=== PATIENT | male | born 1940 | race Caucasian/White ===

== ENCOUNTER → 2016-03-09 | Outpatient (CLI) | payer MEDICARE, BC ==
[2016-03-09 10:53] LABS: INR 2.05
== END ==
LOC: M LAB 10:03
PROVIDERS: ATTEND Physician Assistant
DX: Z86.711 Personal history of pulmonary embolism (principal)

== ENCOUNTER → 2016-03-22 | Outpatient (CLI) | payer MEDICARE, BC ==
[2016-03-22 14:02] LABS: ALBUMIN 3.5 GM/DL (3.2-5.2); CALCIUM LEVEL 9.3 MG/DL (8.8-10.2); CREATININE FOR GFR 1.97 MG/DL (0.70-1.30); GLOMERULAR FILTRATION RATE 35.5 (>42); PHOSPHORUS LEVEL 2.1 MG/DL (2.5-4.9); POTASSIUM SERUM 4.3 MEQ/L (3.5-5.1)
--- NOTE | 2016-03-22 14:07 | REP ---
Chest two views HISTORY: Shortness of breath Comparison: 06/25/2014 The lungs are clear. The cardiac silhouette is enlarged. The pulmonary vasculature is normal in appearance. Degenerative change is present in the thoracic spine. IMPRESSION: Cardiomegaly. Signed by Yaron Adkins MD 03/22/2016 02:00 P
[2016-03-22 14:10] LABS: BASO # 0.2 K/mm3 (0.0-0.2); BASO % 2.1 % (0.0-1.0); EOS # 0.3 K/mm3 (0.0-0.50); EOS % 3.2 % (0.0-3.0); LARGE UNSTAINED CELL # 0.2 K/mm3 (0.0-0.4); LARGE UNSTAINED CELL % 1.5 % (0.0-4.0); LYMPH # 1.6 K/mm3 (1.5-4.5); LYMPH % 14.2 % (24.0-44.0); MEAN CORPUSCULAR HEMOGLOBIN 33.5 pg (27.0-33.0); MEAN CORPUSCULAR HGB CONC 33.2 g/dl (32.0-36.5); MEAN CORPUSCULAR VOLUME 100.9 fl (80.0-96.0); MONO # 0.6 K/mm3 (0.0-0.8); MONO % 5.3 % (0.0-5.0); NEUTROPHILS # 7.6 K/mm3 (1.8-7.7); NEUTROPHILS % 73.7 % (36.0-66.0); PLATELET COUNT, AUTOMATED 217 k/mm3 (150-450); RED CELL DISTRIBUTION WIDTH 14.9 % (11.5-14.5); WHITE BLOOD COUNT 10.4 K/mm3 (4.0-10.0)
== END ==
LOC: M LAB 13:04
PROVIDERS: ATTEND Physician Assistant
DX: R06.02 Shortness of breath (principal)

== ENCOUNTER → 2016-04-06 | Outpatient (CLI) | payer MEDICARE, BC ==
[2016-04-06 09:18] LABS: INR 1.86
== END ==
LOC: M LAB 08:23
PROVIDERS: ATTEND Physician Assistant
DX: Z79.01 Long term (current) use of anticoagulants (principal)

== ENCOUNTER → 2016-04-20 | Outpatient (CLI) | payer MEDICARE, BC ==
[2016-04-20 08:36] LABS: INR 2.1
== END ==
LOC: M LAB 08:10
PROVIDERS: ATTEND Physician Assistant
DX: Z86.711 Personal history of pulmonary embolism (principal)

== ENCOUNTER → 2016-05-16 | Outpatient (CLI) | payer MEDICARE, BC ==
[2016-05-16 07:17] LABS: INR 2.27
== END ==
LOC: M LAB 06:43
PROVIDERS: ATTEND Physician Assistant
DX: Z86.711 Personal history of pulmonary embolism (principal)

== ENCOUNTER → 2016-06-19 | Outpatient (CLI) | payer MEDICARE, BC ==
[2016-06-19 07:43] LABS: INR 1.61
== END ==
LOC: M LAB 06:47
PROVIDERS: ATTEND Nurse Practitioner Family
DX: Z86.711 Personal history of pulmonary embolism (principal)

== ENCOUNTER → 2016-07-04 | Outpatient (CLI) | payer MEDICARE, BC ==
[2016-07-04 07:59] LABS: INR 2.88
== END ==
LOC: M LAB 07:26
PROVIDERS: ATTEND Nurse Practitioner Family
DX: Z86.711 Personal history of pulmonary embolism (principal)

== ENCOUNTER → 2016-08-03 | Outpatient (CLI) | payer MEDICARE, BC ==
[2016-08-03 08:53] LABS: MEAN CORPUSCULAR HEMOGLOBIN 35.9 pg (27.0-33.0); MEAN CORPUSCULAR HGB CONC 34.5 g/dl (32.0-36.5); MEAN CORPUSCULAR VOLUME 104.1 fl (80.0-96.0); RED CELL DISTRIBUTION WIDTH 14.7 % (11.5-14.5); WHITE BLOOD COUNT 7.5 K/mm3 (4.0-10.0)
[2016-08-03 10:09] LABS: ALBUMIN 3.3 GM/DL (3.2-5.2); ALBUMIN/GLOBULIN RATIO 0.92 (1.00-1.93); BILIRUBIN,TOTAL 0.4 MG/DL (0.2-1.0); CALCIUM LEVEL 8.5 MG/DL (8.8-10.2); CREATININE FOR GFR 1.8 MG/DL (0.70-1.30); GLOMERULAR FILTRATION RATE 39.4 (>42); POTASSIUM SERUM 4.4 MEQ/L (3.5-5.1); TOTAL PROTEIN 6.9 GM/DL (6.4-8.2)
== END ==
LOC: M LAB 07:43
PROVIDERS: ATTEND Physician Assistant
DX: I50.32 Chronic diastolic (congestive) heart failure (principal); E78.2 Mixed hyperlipidemia; Z86.711 Personal history of pulmonary embolism

== ENCOUNTER → 2016-08-03 | Outpatient (CLI) | payer MEDICARE, BC ==
[2016-08-03 09:39] LABS: INR 1.93
== END ==
LOC: M LAB 07:40
PROVIDERS: ATTEND Nurse Practitioner Family
DX: Z86.711 Personal history of pulmonary embolism (principal)

== ENCOUNTER → 2016-08-24 | Outpatient (CLI) | payer MEDICARE, BC ==
[2016-08-24 08:15] LABS: INR 1.48
== END ==
LOC: M LAB 07:00
PROVIDERS: ATTEND Physician Assistant
DX: Z86.711 Personal history of pulmonary embolism (principal)

== ENCOUNTER → 2016-09-04 | Outpatient (CLI) | payer MEDICARE, BC ==
[2016-09-04 09:00] LABS: INR 2.07
== END ==
LOC: M LAB 08:15
PROVIDERS: ATTEND Internal Medicine Cardiovascular Disease
DX: Z51.81 Encounter for therapeutic drug level monitoring (principal); Z79.01 Long term (current) use of anticoagulants; Z86.711 Personal history of pulmonary embolism

== ENCOUNTER → 2016-09-18 | Outpatient (CLI) | payer MEDICARE, BC ==
[2016-09-18 07:47] LABS: INR 2.23
== END ==
LOC: M LAB 07:09
PROVIDERS: ATTEND Physician Assistant
DX: Z51.81 Encounter for therapeutic drug level monitoring (principal); Z79.01 Long term (current) use of anticoagulants; Z86.711 Personal history of pulmonary embolism

== ENCOUNTER → 2016-10-16 | Outpatient (CLI) | payer MEDICARE, BC ==
[2016-10-16 08:38] LABS: INR 2.4
== END ==
LOC: M LAB 07:29
PROVIDERS: ATTEND Physician Assistant
DX: Z51.81 Encounter for therapeutic drug level monitoring (principal); Z79.01 Long term (current) use of anticoagulants; Z86.711 Personal history of pulmonary embolism

== ENCOUNTER → 2016-11-13 | Outpatient (CLI) | payer MEDICARE, BC ==
[2016-11-13 09:45] LABS: INR 1.8
== END ==
LOC: M LAB 08:49
PROVIDERS: ATTEND Physician Assistant
DX: Z51.81 Encounter for therapeutic drug level monitoring (principal); Z79.01 Long term (current) use of anticoagulants; Z86.711 Personal history of pulmonary embolism

== ENCOUNTER → 2016-11-27 | Outpatient (CLI) | payer MEDICARE, BC ==
[2016-11-27 09:38] LABS: INR 2.53
== END ==
LOC: M LAB 08:46
PROVIDERS: ATTEND Physician Assistant
DX: Z51.81 Encounter for therapeutic drug level monitoring (principal); Z79.01 Long term (current) use of anticoagulants; D64.9 Anemia, unspecified; E83.39 Other disorders of phosphorus metabolism; Z86.711 Personal history of pulmonary embolism

== ENCOUNTER → 2016-11-27 | Outpatient (REF) | payer MEDICARE, BC ==
[2016-11-27 20:22] LABS: FOLATE > 24.0 NG/ML; VITAMIN B12 LEVEL 1440 PG/ML
[2016-11-27 21:46] LABS: FERRITIN 320 NG/ML (26-388); PERCENT SATURATION 46.6 % (19.7-50.0); TOTAL IRON BINDING CAPACITY 281 UG/DL (250-450)
== END ==
LOC: M LAB REF 16:51
PROVIDERS: ATTEND Internal Medicine Nephrology
DX: D64.9 Anemia, unspecified (principal); E83.39 Other disorders of phosphorus metabolism

== ENCOUNTER → 2016-12-04 | Outpatient (CLI) | payer MEDICARE, BC ==
[2016-12-04 08:40] LABS: INR 2.17
== END ==
LOC: M LAB 08:06
PROVIDERS: ATTEND Physician Assistant
DX: Z86.711 Personal history of pulmonary embolism (principal)

== ENCOUNTER → 2017-01-04 | Outpatient (CLI) | payer MEDICARE, BC ==
[2017-01-04 10:53] LABS: INR 3.48
== END ==
LOC: M LAB 08:58
PROVIDERS: ATTEND Nurse Practitioner Family
DX: Z51.81 Encounter for therapeutic drug level monitoring (principal); Z79.01 Long term (current) use of anticoagulants; Z86.711 Personal history of pulmonary embolism

== ENCOUNTER → 2017-01-11 | Outpatient (CLI) | payer MEDICARE, BC ==
[2017-01-11 08:20] LABS: INR 2.29
== END ==
LOC: M LAB 07:29
PROVIDERS: ATTEND Nurse Practitioner Family
DX: Z51.81 Encounter for therapeutic drug level monitoring (principal); Z86.711 Personal history of pulmonary embolism; Z79.01 Long term (current) use of anticoagulants

== ENCOUNTER → 2017-02-01 | Outpatient (CLI) | payer MEDICARE, BC ==
[2017-02-01 08:29] LABS: MEAN CORPUSCULAR HEMOGLOBIN 35.1 pg (27.0-33.0); MEAN CORPUSCULAR HGB CONC 32.9 g/dl (32.0-36.5); MEAN CORPUSCULAR VOLUME 106.6 fl (80.0-96.0); PLATELET COUNT, AUTOMATED 250 10^3/uL (150-450); RED CELL DISTRIBUTION WIDTH 15.1 % (11.5-14.5); WHITE BLOOD COUNT 8.9 10^3/uL (4.0-10.0)
[2017-02-01 08:43] LABS: INR 1.33
[2017-02-01 08:54] LABS: ALBUMIN 3.5 GM/DL (3.2-5.2); ALBUMIN/GLOBULIN RATIO 0.83 (1.00-1.93); BILIRUBIN,TOTAL 0.4 MG/DL (0.2-1.0); CALCIUM LEVEL 8.7 MG/DL (8.8-10.2); CREATININE FOR GFR 1.96 MG/DL (0.70-1.30); GLOMERULAR FILTRATION RATE 35.6 (>42); POTASSIUM SERUM 4.7 MEQ/L (3.5-5.1); TOTAL PROTEIN 7.7 GM/DL (6.4-8.2)
== END ==
LOC: M LAB 08:04
PROVIDERS: ATTEND Physician Assistant
DX: I50.32 Chronic diastolic (congestive) heart failure (principal); E78.2 Mixed hyperlipidemia; Z86.711 Personal history of pulmonary embolism

== ENCOUNTER → 2017-02-12 | Outpatient (CLI) | payer MEDICARE, BC ==
[2017-02-12 08:26] LABS: INR 1.65
== END ==
LOC: M LAB 07:44
PROVIDERS: ATTEND Physician Assistant
DX: Z51.81 Encounter for therapeutic drug level monitoring (principal); Z79.01 Long term (current) use of anticoagulants; Z86.711 Personal history of pulmonary embolism

== ENCOUNTER → 2017-02-27 | Outpatient (CLI) | payer MEDICARE, BC ==
[2017-02-27 08:12] LABS: INR 2.14; PROTHROMBIN TIME 24.7 SECONDS (12.4-14.5)
== END ==
LOC: M LAB 07:16
DX: Z51.81 Encounter for therapeutic drug level monitoring (principal); Z79.01 Long term (current) use of anticoagulants; Z86.711 Personal history of pulmonary embolism
CPT/HCPCS: 85610

== ENCOUNTER → 2017-03-26 | Outpatient (CLI) | payer MEDICARE, BC ==
[2017-03-26 09:31] LABS: INR 2.26; PROTHROMBIN TIME 25.8 SECONDS (12.4-14.5)
== END ==
LOC: M LAB 08:28
DX: Z51.81 Encounter for therapeutic drug level monitoring (principal); Z86.711 Personal history of pulmonary embolism; Z79.01 Long term (current) use of anticoagulants
CPT/HCPCS: 85610

== ENCOUNTER → 2017-04-24 | Outpatient (CLI) | payer MEDICARE, BC ==
[2017-04-24 09:03] LABS: INR 2.73; PROTHROMBIN TIME 30.1 SECONDS (12.4-14.5)
== END ==
LOC: M LAB 08:10
DX: Z51.81 Encounter for therapeutic drug level monitoring (principal); Z79.01 Long term (current) use of anticoagulants; Z86.711 Personal history of pulmonary embolism
CPT/HCPCS: 85610

== ENCOUNTER → 2017-05-22 | Outpatient (CLI) | payer MEDICARE, BC ==
[2017-05-22 10:01] LABS: INR 2.97; PROTHROMBIN TIME 32.2 SECONDS (12.4-14.5)
== END ==
LOC: M LAB 09:13
DX: Z86.711 Personal history of pulmonary embolism (principal)
CPT/HCPCS: 85610

== ENCOUNTER → 2017-06-19 | Outpatient (CLI) | payer MEDICARE, BC ==
[2017-06-19 09:45] LABS: INR 3.35; PROTHROMBIN TIME 35.5 SECONDS (12.4-14.5)
== END ==
LOC: M LAB 08:54
DX: Z51.81 Encounter for therapeutic drug level monitoring (principal); Z79.01 Long term (current) use of anticoagulants; Z86.711 Personal history of pulmonary embolism
CPT/HCPCS: 85610

== ENCOUNTER → 2017-07-03 | Outpatient (CLI) | payer MEDICARE, BC ==
[2017-07-03 09:48] LABS: INR 2.43; PROTHROMBIN TIME 27.4 SECONDS (12.4-14.5)
== END ==
LOC: M LAB 08:39
DX: Z86.711 Personal history of pulmonary embolism (principal); Z79.01 Long term (current) use of anticoagulants
CPT/HCPCS: 85610

== ENCOUNTER → 2017-07-09 | Outpatient (REF) | payer MEDICARE, BC ==
[2017-07-09 19:21] LABS: FOLATE > 24.0 NG/ML; VITAMIN B12 LEVEL 1528 PG/ML
[2017-07-09 19:29] LABS: FERRITIN 255 NG/ML (26-388); IRON (FE) 141 UG/DL (65-175); PERCENT SATURATION 49.8 % (19.7-50.0); TOTAL IRON BINDING CAPACITY 283 UG/DL (250-450)
== END ==
LOC: M LAB REF 17:16
DX: D64.9 Anemia, unspecified (principal)
CPT/HCPCS: 82746

== ENCOUNTER → 2017-07-17 | Outpatient (CLI) | payer MEDICARE, BC ==
[2017-07-17 09:11] LABS: INR 2.09; PROTHROMBIN TIME 24.2 SECONDS (12.4-14.5)
== END ==
LOC: M LAB 08:07
DX: Z86.711 Personal history of pulmonary embolism (principal)
CPT/HCPCS: 85610

== ENCOUNTER → 2017-08-07 | Outpatient (CLI) | payer MEDICARE, BC ==
[2017-08-07 07:56] LABS: HEMATOCRIT 28.5 % (42.0-52.0); HEMOGLOBIN 9.2 g/dl (13.5-17.5); MEAN CORPUSCULAR HEMOGLOBIN 35.1 pg (27.0-33.0); MEAN CORPUSCULAR HGB CONC 32.3 g/dl (32.0-36.5); MEAN CORPUSCULAR VOLUME 108.8 fl (80.0-96.0); PLATELET COUNT, AUTOMATED 232 10^3/uL (150-450); RED BLOOD COUNT 2.62 10^6/uL (4.30-6.10); RED CELL DISTRIBUTION WIDTH 17.8 % (11.5-14.5); WHITE BLOOD COUNT 8.3 10^3/uL (4.0-10.0)
[2017-08-07 08:12] LABS: INR 1.76; PROTHROMBIN TIME 21.1 SECONDS (12.4-14.5)
[2017-08-07 08:20] LABS: ALBUMIN 3.5 GM/DL (3.2-5.2); ALBUMIN/GLOBULIN RATIO 0.92 (1.00-1.93); ALKALINE PHOSPHATASE 86 U/L (45-117); ALT/SGPT 31 U/L (12-78); ANION GAP 9 MEQ/L (8-16); AST/SGOT 27 U/L (7-37); BILIRUBIN,TOTAL 0.6 MG/DL (0.2-1.0); BLOOD UREA NITROGEN 30 MG/DL (7-18); CALCIUM LEVEL 8.5 MG/DL (8.8-10.2); CARBON DIOXIDE LEVEL 24 MEQ/L (21-32); CHLORIDE LEVEL 112 MEQ/L (98-107); CREATININE FOR GFR 2.12 MG/DL (0.70-1.30); GLOMERULAR FILTRATION RATE 32.5 (>42); GLUCOSE, FASTING 129 MG/DL (70-100); POTASSIUM SERUM 4.4 MEQ/L (3.5-5.1); SODIUM LEVEL 145 MEQ/L (136-145); TOTAL PROTEIN 7.3 GM/DL (6.4-8.2)
== END ==
LOC: M LAB 07:35
DX: Z86.711 Personal history of pulmonary embolism (principal)
CPT/HCPCS: 80053

== ENCOUNTER → 2017-08-22 | Outpatient (CLI) | payer MEDICARE, BC ==
[2017-08-22 08:07] LABS: PROTHROMBIN TIME 28.9 SECONDS (12.4-14.5)
== END ==
LOC: M LAB 07:26
DX: Z09 Encounter for follow-up examination after completed treatment for conditions other than malignant neoplasm (principal); Z86.711 Personal history of pulmonary embolism
CPT/HCPCS: 85610

== ENCOUNTER → 2017-09-19 | Outpatient (CLI) | payer MEDICARE, BC ==
[2017-09-19 08:35] LABS: INR 2.72; PROTHROMBIN TIME 29.4 SECONDS (12.1-14.4)
== END ==
LOC: M LAB 07:57
DX: Z51.81 Encounter for therapeutic drug level monitoring (principal); Z79.01 Long term (current) use of anticoagulants; Z86.711 Personal history of pulmonary embolism
CPT/HCPCS: 85610

== ENCOUNTER → 2017-10-17 | Outpatient (CLI) | payer MEDICARE, BC ==
[2017-10-17 08:45] LABS: INR 3.19; PROTHROMBIN TIME 33.4 SECONDS (12.1-14.4)
== END ==
LOC: M LAB 08:07
DX: Z51.81 Encounter for therapeutic drug level monitoring (principal); Z79.01 Long term (current) use of anticoagulants; Z86.711 Personal history of pulmonary embolism
CPT/HCPCS: 85610

== ENCOUNTER → 2017-11-14 | Outpatient (REF) | payer MEDICARE, BC | LOC: M LAB REF 16:58 | DX: N18.9 Chronic kidney disease, unspecified (principal); D63.1 Anemia in chronic kidney disease | CPT/HCPCS: 82270 ==

== ENCOUNTER → 2017-11-14 | Outpatient (CLI) | payer MEDICARE, BC ==
[2017-11-14 10:19] LABS: INR 2.34; PROTHROMBIN TIME 26.1 SECONDS (12.1-14.4)
== END ==
LOC: M LAB 09:34
DX: Z86.711 Personal history of pulmonary embolism (principal); Z79.01 Long term (current) use of anticoagulants
CPT/HCPCS: 85610

== ENCOUNTER → 2017-12-12 | Outpatient (CLI) | payer MEDICARE, BC ==
[2017-12-12 08:23] LABS: PROTHROMBIN TIME 28.3 SECONDS (12.1-14.4)
== END ==
LOC: M LAB 07:02
DX: Z86.711 Personal history of pulmonary embolism (principal)
CPT/HCPCS: 85610

== ENCOUNTER → 2018-01-09 | Outpatient (CLI) | payer MEDICARE, BC ==
[2018-01-09 07:41] LABS: INR 1.94; PROTHROMBIN TIME 22.5 SECONDS (12.1-14.4)
== END ==
LOC: M LAB 07:08
DX: Z86.711 Personal history of pulmonary embolism (principal)
CPT/HCPCS: 85610

== ENCOUNTER 2018-01-24 08:53 | Day surgery (SDC) | payer MEDICARE, BC ==
[2018-01-24] MEDS: NS 1,000 ML IV (09:15)
[2018-01-24] MEDS ORDERED: fentaNYL 100 MCG/2 ML INJECTION (J3010) As Ordered (10:03)
[2018-01-24] MEDS ORDERED: LIDOCAINE 2% INJ 100 MG/5 ML SDV (FOR ANES.) As Ordered (10:03)
[2018-01-24] MEDS ORDERED: PROPOFOL 500 MG/50 ML VIAL As Ordered (10:03)
== END 2018-01-24 11:02 | disposition home or self-care (01) ==
LOC: M OPP 08:53
DX: K64.4 Residual hemorrhoidal skin tags (principal); K57.30 Diverticulosis of large intestine without perforation or abscess without bleeding; K29.50 Unspecified chronic gastritis without bleeding; I12.9 Hypertensive chronic kidney disease with stage 1 through stage 4 chronic kidney disease, or unspecified chronic kidney disease; E11.9 Type 2 diabetes mellitus without complications; J44.9 Chronic obstructive pulmonary disease, unspecified; N18.3 Chronic kidney disease, stage 3 (moderate); E78.00 Pure hypercholesterolemia, unspecified; R12 Heartburn; K21.9 Gastro-esophageal reflux disease without esophagitis; M10.9 Gout, unspecified; N42.9 Disorder of prostate, unspecified; Z98.890 Other specified postprocedural states; Z79.899 Other long term (current) drug therapy; Z79.01 Long term (current) use of anticoagulants; Z88.1 Allergy status to other antibiotic agents; Z88.2 Allergy status to sulfonamides; Z88.8 Allergy status to other drugs, medicaments and biological substances; Z88.5 Allergy status to narcotic agent; Z86.711 Personal history of pulmonary embolism
CPT/HCPCS: 45378

== ENCOUNTER → 2018-01-30 | Outpatient (CLI) | payer MEDICARE, BC ==
[2018-01-30 08:20] LABS: INR 1.69; PROTHROMBIN TIME 20.2 SECONDS (12.1-14.4)
[2018-01-30 08:33] LABS: ALBUMIN 3.4 GM/DL (3.2-5.2); ALBUMIN/GLOBULIN RATIO 0.97 (1.00-1.93); ALKALINE PHOSPHATASE 86 U/L (45-117); ALT/SGPT 30 U/L (12-78); ANION GAP 7 MEQ/L (8-16); AST/SGOT 22 U/L (7-37); BILIRUBIN,TOTAL 0.4 MG/DL (0.2-1.0); BLOOD UREA NITROGEN 32 MG/DL (7-18); CALCIUM LEVEL 8.4 MG/DL (8.8-10.2); CARBON DIOXIDE LEVEL 27 MEQ/L (21-32); CHLORIDE LEVEL 109 MEQ/L (98-107); CHOLESTEROL LEVEL 59 MG/DL (<200); CHOLESTEROL RISK RATIO 3.105 (<5); CREATININE FOR GFR 2.05 MG/DL (0.70-1.30); GLOMERULAR FILTRATION RATE 33.7 (>42); GLUCOSE, FASTING 139 MG/DL (70-100); HDL CHOLESTEROL 19 MG/DL (>40); LDL CHOLESTEROL 19 MG/DL (<100); NON-HDL-C 40 MG/DL; POTASSIUM SERUM 4.8 MEQ/L (3.5-5.1); SODIUM LEVEL 143 MEQ/L (136-145); TOTAL PROTEIN 6.9 GM/DL (6.4-8.2); TRIGLYCERIDES LEVEL 104 MG/DL (<150)
== END ==
LOC: M LAB 07:26
DX: I50.32 Chronic diastolic (congestive) heart failure (principal); E78.2 Mixed hyperlipidemia; E83.42 Hypomagnesemia
CPT/HCPCS: 83735

== ENCOUNTER → 2018-01-30 | Outpatient (CLI) | payer MEDICARE, BC | LOC: M LAB 07:17 | DX: Z51.81 Encounter for therapeutic drug level monitoring (principal); Z79.01 Long term (current) use of anticoagulants; Z86.711 Personal history of pulmonary embolism ==

== ENCOUNTER → 2018-02-06 | Outpatient (CLI) | payer MEDICARE, BC ==
[2018-02-06 09:21] LABS: INR 2.45; PROTHROMBIN TIME 27.1 SECONDS (12.1-14.4)
== END ==
LOC: M LAB 08:26
DX: Z51.81 Encounter for therapeutic drug level monitoring (principal); Z79.01 Long term (current) use of anticoagulants; Z86.711 Personal history of pulmonary embolism
CPT/HCPCS: 85610

== ENCOUNTER → 2018-03-07 | Outpatient (CLI) | payer MEDICARE, BC ==
[~2018-03-07] MED LIST: AMLO2.5T3 PO; ATOR80TA59 PO; BUME1TAB3 PO; CALC1CAP31 PO; FEBU40TA PO; FERR32TA PO; FISH120016 PO; JANU100T PO; KPHOS50TA PO; POTA1TAB23 PO; REPA1TAB PO; VITATAB11 PO; WARF-18 PO; WARF-23 PO
[2018-03-07 07:40] LABS: INR 2.34; PROTHROMBIN TIME 26.1 SECONDS (12.1-14.4)
== END ==
LOC: M LAB 06:37
PROVIDERS: ATTEND Physician Assistant
DX: Z51.81 Encounter for therapeutic drug level monitoring (principal); Z79.01 Long term (current) use of anticoagulants; Z86.711 Personal history of pulmonary embolism

== ENCOUNTER 2018-03-26 06:15 | Emergency (ER) | payer MEDICARE, BC ==
[~2018-03-26] VITALS: Ht 182.9 cm; Wt 105.9 kg
[2018-03-26] MEDS ORDERED: ALPR0.5T3 (06:21)
[2018-03-26] MEDS ORDERED: ALLO100T (06:21)
[2018-03-26] MEDS ORDERED: VIRT1TAB8 PO (06:50)
[2018-03-26] MEDS ORDERED: LORazepam 0.5 MG TAB PO ONE (07:45)
[2018-03-26 07:48] LABS: BASO # 0.1 10^3/uL (0.0-0.2); BASO % 0.9 % (0.0-1.0); EOS # 0.6 10^3/uL (0.0-0.50); EOS % 5.4 % (0.0-3.0); HEMATOCRIT 27.9 % (42.0-52.0); LYMPH # 1.9 10^3/uL (1.5-4.5); LYMPH % 16.5 % (24.0-44.0); MEAN CORPUSCULAR HEMOGLOBIN 34.1 pg (27.0-33.0); MEAN CORPUSCULAR HGB CONC 32.3 g/dl (32.0-36.5); MEAN CORPUSCULAR VOLUME 105.7 fl (80.0-96.0); MONO # 0.8 10^3/uL (0.0-0.8); MONO % 7.2 % (0.0-5.0); NEUTROPHILS # 7.8 10^3/uL (1.8-7.7); NEUTROPHILS % 67.7 % (36.0-66.0); PLATELET COUNT, AUTOMATED 259 10^3/uL (150-450); RED BLOOD COUNT 2.64 10^6/uL (4.30-6.10); WHITE BLOOD COUNT 11.6 10^3/uL (4.0-10.0)
[2018-03-26 08:25] LABS: ALBUMIN 3.4 GM/DL (3.2-5.2); ALT/SGPT 38 U/L (12-78); BILIRUBIN,DIRECT 0.1 MG/DL (0.0-0.2); BILIRUBIN,TOTAL 0.5 MG/DL (0.2-1.0); BLOOD UREA NITROGEN 26 MG/DL (7-18); CALCIUM LEVEL 8.1 MG/DL (8.8-10.2); CARBON DIOXIDE LEVEL 24 MEQ/L (21-32); CHLORIDE LEVEL 109 MEQ/L (98-107); CPK CREATINE PHOSPHOKINASE 82 U/L (39-308); CREATININE FOR GFR 1.87 MG/DL (0.70-1.30); GLOMERULAR FILTRATION RATE 37.5 (>42); GLUCOSE, FASTING 176 MG/DL (70-100); MB/CK RELATIVE INDEX 1.59 (< OR =4); POTASSIUM SERUM 4.3 MEQ/L (3.5-5.1); SODIUM LEVEL 142 MEQ/L (136-145); TROPONIN I < 0.02 NG/ML (< 0.10)
--- NOTE | 2018-03-26 08:36 | REP ---
Clinical: Shortness of breath. Technique: PA and lateral. Comparison: 03/22/2016. Findings: Mediastinum and cardiac silhouette are stable with mild cardiomegaly again suggested. Trace right basilar atelectasis requires clinical correlation. No further consolidation, effusion, or pneumothorax. Skeletal structures intact. Impression: Trace right basilar atelectasis. Electronically Signed by Juan Watson MD 03/26/2018 08:27 A
[2018-03-26 09:19] VITALS: BP 134/89
--- NOTE | 2018-03-26 21:18 | ECGEPIP ---
Stationary ECG Study 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
== END 2018-03-26 09:29 | disposition home or self-care (01) ==
LOC: M ED 06:15
DX: G47.00 Insomnia, unspecified (principal); K21.9 Gastro-esophageal reflux disease without esophagitis; N18.9 Chronic kidney disease, unspecified; I13.0 Hypertensive heart and chronic kidney disease with heart failure and stage 1 through stage 4 chronic kidney disease, or unspecified chronic kidney disease; I50.9 Heart failure, unspecified; J44.9 Chronic obstructive pulmonary disease, unspecified; E78.5 Hyperlipidemia, unspecified

== ENCOUNTER → 2018-04-03 | Outpatient (CLI) | payer MEDICARE, BC ==
[~2018-04-03] MED LIST changes: +ALLO100T; +ALPR0.5T3; +VIRT1TAB8 PO
--- NOTE | 2018-04-06 06:34 | ECHO ---
DATE OF STUDY: 04/04/2018 REFERRING PHYSICIAN: SUSU Charles INDICATION: Chronic diastolic heart failure. HEIGHT: 72 inches. WEIGHT: 232 pounds. 2-D MEASUREMENTS: Left atrium: 3.8 cm Aortic root: 3.3 cm Left ventricle diastole: 5.0 cm Ventricular septum: 0.87 cm Posterior wall: 0.97 cm Aortic annulus: 2.1 cm Left atrial volume index: 29 Inferior vena cava: 2.2 cm DOPPLER MEASUREMENTS: Aortic valve velocity: 154 cm/sec LVOT velocity: 109 cm/sec LVOT VTI: 24.1 cm Mitral E velocity: 84.9 cm/sec Mitral A velocity: 95.6 cm/sec Mitral deceleration time: 264 ms Very mild tricuspid regurgitation Estimated right ventricular systolic pressure 22-27 mmHg assuming a right atrial pressure of 5-10 mmHg MITRAL ANNULAR TISSUE DOPPLER: E prime septal: 7.1 cm/sec E prime lateral: 9.7 cm/sec DESCRIPTION: The rhythm was sinus. This was a moderately technically difficult echocardiogram. No pericardial effusion. This was a 2-D, M-mode, color flow Doppler and pulse wave Doppler examination and included mitral annular tissue Doppler. CONCLUSIONS: 1. Normal left ventricle internal dimensions and wall thickness. Normal regional LV wall motion and wall thickening. Normal LV systolic function. LVEF 65% by visual estimate. Grade 1 LV diastolic dysfunction (impaired relaxation filling pattern). 2. Mild left atrial dilatation by left atrial volume index. 3. Mild aortic valve sclerosis with a 3-cuspid aortic valve. No aortic regurgitation.
== END ==
LOC: M CARPUL 07:50
PROVIDERS: ATTEND Physician Assistant
DX: I50.32 Chronic diastolic (congestive) heart failure (principal); I31.8 Other specified diseases of pericardium

== ENCOUNTER → 2018-04-04 | Outpatient (CLI) | payer MEDICARE, BC ==
[2018-04-04 15:56] LABS: INR 3.23; PROTHROMBIN TIME 33.8 SECONDS (12.1-14.4)
== END ==
LOC: M LAB 15:13
PROVIDERS: ATTEND Physician Assistant
DX: Z86.711 Personal history of pulmonary embolism (principal)

== ENCOUNTER → 2018-04-18 | Outpatient (CLI) | payer MEDICARE, BC ==
[2018-04-18 07:10] LABS: INR 2.82; PROTHROMBIN TIME 30.3 SECONDS (12.1-14.4)
== END ==
LOC: M LAB 06:25
PROVIDERS: ATTEND Physician Assistant
DX: Z86.711 Personal history of pulmonary embolism (principal)

== ENCOUNTER → 2018-05-16 | Outpatient (CLI) | payer MEDICARE, BC ==
[2018-05-16 09:52] LABS: INR 2.11; PROTHROMBIN TIME 24.1 SECONDS (12.1-14.4)
== END ==
LOC: M LAB 09:10
PROVIDERS: ATTEND Physician Assistant
DX: Z86.711 Personal history of pulmonary embolism (principal)

== ENCOUNTER → 2018-07-10 | Outpatient (CLI) | payer MEDICARE, BC ==
[2018-07-10 07:47] LABS: INR 2.11
== END ==
LOC: M LAB 06:59
PROVIDERS: ATTEND Physician Assistant
DX: Z86.711 Personal history of pulmonary embolism (principal)

== ENCOUNTER → 2018-08-07 | Outpatient (CLI) | payer MEDICARE, BC ==
[2018-08-07 09:22] LABS: INR 2.69; PROTHROMBIN TIME 29.2 SECONDS (12.1-14.4)
== END ==
LOC: M LAB 08:06
PROVIDERS: ATTEND Physician Assistant
DX: Z86.711 Personal history of pulmonary embolism (principal)

== ENCOUNTER → 2018-09-05 | Outpatient (CLI) | payer MEDICARE, BC ==
[2018-09-05 07:45] LABS: INR 2.82; PROTHROMBIN TIME 29.6 SECONDS (11.8-14.0)
== END ==
LOC: M LAB 07:07
PROVIDERS: ATTEND Physician Assistant
DX: Z86.711 Personal history of pulmonary embolism (principal)

== ENCOUNTER → 2018-09-06 | Outpatient (CLI) | payer MEDICARE, BC ==
[~2018-09-06] MED LIST changes: -FEBU40TA PO; +FEBU40TA4 PO; -REPA1TAB PO; +REPA1TAB3 PO
--- NOTE | 2018-09-07 07:10 | REP ---
Right knee series: Five views. History: Sprain. Findings: Five views of the right knee demonstrate prominent vascular calcification. Overall mineralization pattern is normal. There is patellofemoral osteoarthritic spurring. Nonarticular spurring is seen at the superior pole of the patella at the quadriceps tendon insertion consistent with quadriceps tendonitis. No erosive change is seen. No fracture is noted. There is mild anteromedial soft tissue swelling. Impression: Osteoarthritic changes. Vascular calcification. Nonarticular spurring of the patella. Question chronic quadriceps tendonitis. No fracture seen. Electronically Signed by Jacob Young MD 09/07/2018 11:56 A
== END ==
LOC: M WUC 15:09
PROVIDERS: ATTEND Physician Assistant
DX: M17.11 Unilateral primary osteoarthritis, right knee (principal); M25.761 Osteophyte, right knee

== ENCOUNTER → 2018-10-03 | Outpatient (CLI) | payer MEDICARE, BC ==
[2018-10-03 09:38] LABS: INR 3.11
== END ==
LOC: M LAB 07:42
PROVIDERS: ATTEND Physician Assistant
DX: Z86.711 Personal history of pulmonary embolism (principal)

== ENCOUNTER 2018-10-20 20:30 | Emergency (ER) | payer MEDICARE, BC ==
[~2018-10-20] VITALS: Ht 182.9 cm; Wt 101.8 kg
[~2018-10-20 20:30] MED LIST changes: +REPA1TAB PO; -REPA1TAB3 PO
[2018-10-20] MEDS ORDERED: traMADol 50 MG TAB PO ONE (22:15)
[2018-10-20] MEDS ORDERED: KETOROLAC 60 MG/2 ML VIAL (J1885) IM ONE (22:15)
--- NOTE | 2018-10-20 22:52 | REPVR ---
EXAM: CT Pelvis Without Contrast, Skeletal EXAM DATE/TIME: 10/20/2018 10:28 PM CLINICAL HISTORY: 78 years old, male; Injury or trauma; Fall; Initial encounter; Blunt trauma (contusions or hematomas); Right; Hip; Additional info: Tr TECHNIQUE: Imaging protocol: Computed tomography images of the pelvis without contrast. Exam focused on the skeletal structures. Radiation optimization: All CT scans at this facility use at least one of these dose optimization techniques: automated exposure control; mA and/or kV adjustment per patient size (includes targeted exams where dose is matched to clinical indication); or iterative reconstruction. COMPARISON: CT ABD PELVIS W/O CONTRAST 08/02/2012 9:55 AM FINDINGS: Stomach and bowel: Mild diverticulosis is present in the distal colon. No diverticulitis. Reproductive: The prostate gland demonstrates mild hyperplasia. Vasculature: The aorta demonstrates moderate atherosclerotic calcification. Bones/joints: The spine demonstrates moderate degenerative changes. Severe central spinal stenosis L4-5 and mild central spinal stenosis L3-4. Both proximal femurs unremarkable. No fractures. Soft tissues: Bilateral inguinal hernias. IMPRESSION: 1. Mild diverticulosis is present in the distal colon. No diverticulitis. 2. Mild prostatic hyperplasia. 3. No fractures. Electronically signed by: Osman Mayen On 10/20/2018 22:52:11 PM
[2018-10-20 23:26] VITALS: BP 174/77
[2018-10-20] MEDS ORDERED: traMADol 50 MG TAB (BULK 4 TAB ED) PO ONE (23:30)
--- NOTE | 2018-10-22 11:06 | REP ---
AP pelvis: There is no pelvic fracture. There is lumbar scoliosis convex right. The sacroiliac articulations are unremarkable. The right and left hip articulations are unremarkable. Impression: No fracture. Lumbar scoliosis. Right hip two views: There is no fracture or dislocation. Mineralization joint space are unremarkable. There are no calcifications except for vascular atheromatous calcification. No foreign bodies. Impression: No fracture or dislocation. Electronically Signed by Bala Ramirez MD 10/21/2018 07:02 A
== END 2018-10-20 23:26 | disposition home or self-care (01) ==
LOC: M ED 20:30
DX: S30.0XXA Contusion of lower back and pelvis, initial encounter (principal); W01.0XXA Fall on same level from slipping, tripping and stumbling without subsequent striking against object, initial encounter; Y92.018 Other place in single-family (private) house as the place of occurrence of the external cause; R52 Pain, unspecified; I10 Essential (primary) hypertension; E11.9 Type 2 diabetes mellitus without complications; J44.9 Chronic obstructive pulmonary disease, unspecified; K21.9 Gastro-esophageal reflux disease without esophagitis; N28.9 Disorder of kidney and ureter, unspecified; Z79.899 Other long term (current) drug therapy; Z79.01 Long term (current) use of anticoagulants; Z88.1 Allergy status to other antibiotic agents; Z88.2 Allergy status to sulfonamides; Z88.5 Allergy status to narcotic agent; Z88.8 Allergy status to other drugs, medicaments and biological substances

== ENCOUNTER → 2018-10-31 | Outpatient (CLI) | payer MEDICARE, BC ==
[2018-10-31 10:00] LABS: INR 2.69; PROTHROMBIN TIME 28.5 SECONDS (11.8-14.0)
== END ==
LOC: M LAB 09:17
PROVIDERS: ATTEND Physician Assistant
DX: Z79.01 Long term (current) use of anticoagulants (principal)

== ENCOUNTER → 2018-11-28 | Outpatient (CLI) | payer MEDICARE, BC ==
[2018-11-28 07:38] LABS: INR 3.1; PROTHROMBIN TIME 31.9 SECONDS (11.8-14.0)
== END ==
LOC: M LAB 06:58
PROVIDERS: ATTEND Physician Assistant
DX: Z86.711 Personal history of pulmonary embolism (principal)

== ENCOUNTER → 2018-12-19 | Outpatient (CLI) | payer MEDICARE, BC ==
[~2018-12-19] MED LIST changes: -REPA1TAB PO; +REPA1TAB3 PO
[2018-12-19 08:43] LABS: INR 3.1; PROTHROMBIN TIME 31.9 SECONDS (11.8-14.0)
== END ==
LOC: M LAB 07:58
PROVIDERS: ATTEND Physician Assistant
DX: Z86.711 Personal history of pulmonary embolism (principal)

== ENCOUNTER → 2019-01-16 | Outpatient (CLI) | payer MEDICARE, BC ==
[2019-01-16 10:01] LABS: INR 2.39; PROTHROMBIN TIME 25.9 SECONDS (11.8-14.0)
== END ==
LOC: M LAB 08:56
PROVIDERS: ATTEND Physician Assistant
DX: Z86.711 Personal history of pulmonary embolism (principal)

== ENCOUNTER → 2019-02-13 | Outpatient (CLI) | payer MEDICARE, BC ==
[2019-02-13 09:31] LABS: INR 3.4; PROTHROMBIN TIME 34.3 SECONDS (11.8-14.0)
[2019-02-13 10:36] LABS: ALBUMIN 3.4 GM/DL (3.2-5.2); BILIRUBIN,TOTAL 0.7 MG/DL (0.2-1.0); CALCIUM LEVEL 8.6 MG/DL (8.8-10.2); CHOLESTEROL RISK RATIO 3.285 (<5); CREATININE FOR GFR 1.93 MG/DL (0.70-1.30); POTASSIUM SERUM 4.1 MEQ/L (3.5-5.1); TOTAL PROTEIN 7.2 GM/DL (6.4-8.2)
== END ==
LOC: M LAB 08:53
PROVIDERS: ATTEND Physician Assistant
DX: E78.2 Mixed hyperlipidemia (principal); I50.32 Chronic diastolic (congestive) heart failure; Z86.711 Personal history of pulmonary embolism

== ENCOUNTER → 2019-03-03 | Outpatient (CLI) | payer MEDICARE, BC ==
[2019-03-03 11:56] LABS: INR 2.06
== END ==
LOC: M LAB 10:52
PROVIDERS: ATTEND Physician Assistant
DX: Z86.711 Personal history of pulmonary embolism (principal)

== ENCOUNTER → 2019-03-31 | Outpatient (CLI) | payer MEDICARE, BC ==
[2019-03-31 09:24] LABS: INR 2.16; PROTHROMBIN TIME 23.9 SECONDS (11.8-14.0)
== END ==
LOC: M LAB 08:01
PROVIDERS: ATTEND Physician Assistant
DX: Z86.711 Personal history of pulmonary embolism (principal); Z79.01 Long term (current) use of anticoagulants

== ENCOUNTER → 2019-04-30 | Outpatient (CLI) | payer MEDICARE, BC ==
[2019-04-30 08:53] LABS: INR 2.39; PROTHROMBIN TIME 25.9 SECONDS (11.8-14.0)
== END ==
LOC: M LAB 07:32
PROVIDERS: ATTEND Physician Assistant
DX: Z86.711 Personal history of pulmonary embolism (principal)

== ENCOUNTER → 2019-05-28 | Outpatient (CLI) | payer MEDICARE, BC ==
[2019-05-28 07:39] LABS: INR 2.15; PROTHROMBIN TIME 23.8 SECONDS (11.8-14.0)
== END ==
LOC: M LAB 07:08
PROVIDERS: ATTEND Physician Assistant
DX: Z86.711 Personal history of pulmonary embolism (principal)

== ENCOUNTER → 2019-06-26 | Outpatient (CLI) | payer MEDICARE, BC ==
[2019-06-26 10:07] LABS: INR 3.96; PROTHROMBIN TIME 38.8 SECONDS (11.8-14.0)
== END ==
LOC: M LAB 09:29
PROVIDERS: ATTEND Physician Assistant
DX: Z86.711 Personal history of pulmonary embolism (principal)

== ENCOUNTER → 2019-07-10 | Outpatient (CLI) | payer MEDICARE, BC ==
[2019-07-10 08:43] LABS: INR 2.84; PROTHROMBIN TIME 29.7 SECONDS (11.8-14.0)
== END ==
LOC: M LAB 07:48
PROVIDERS: ATTEND Physician Assistant
DX: Z86.711 Personal history of pulmonary embolism (principal)

== ENCOUNTER → 2019-07-31 | Outpatient (CLI) | payer MEDICARE, BC ==
[~2019-07-31] MED LIST changes: +CLON1TAB8; +FEBU40TA2
[2019-07-31 14:12] LABS: INR 2.82; PROTHROMBIN TIME 29.6 SECONDS (11.8-14.0)
== END ==
LOC: M LAB 13:36
PROVIDERS: ATTEND Physician Assistant
DX: Z86.711 Personal history of pulmonary embolism (principal)

== ENCOUNTER 2019-08-07 09:00 | Emergency (ER) | payer MEDICARE, BC ==
[~2019-08-07] VITALS: Ht 182.9 cm; Wt 101.8 kg
[~2019-08-07 09:00] MED LIST changes: -CLON1TAB8; -FEBU40TA2
[2019-08-07] MEDS ORDERED: FEBU40TA2 (09:35)
[2019-08-07] MEDS ORDERED: CLON1TAB8 (09:35)
[2019-08-07 09:41] LABS: BASO # 0.1 10^3/uL (0.0-0.2); BASO % 0.8 % (0.0-1.0); EOS # 0.2 10^3/uL (0.0-0.5); EOS % 2.6 % (0.0-3.0); HEMATOCRIT 37.5 % (42.0-52.0); HEMOGLOBIN 12.9 g/dl (13.5-17.5); LYMPH # 1.7 10^3/uL (1.5-5.0); LYMPH % 18.6 % (24.0-44.0); MEAN CORPUSCULAR HEMOGLOBIN 34.5 pg (27.0-33.0); MEAN CORPUSCULAR HGB CONC 34.4 g/dl (32.0-36.5); MEAN CORPUSCULAR VOLUME 100.3 fl (80.0-96.0); MONO # 1.1 10^3/uL (0.0-0.8); MONO % 12.4 % (0.0-5.0); NEUTROPHILS % 64.9 % (36.0-66.0); PLATELET COUNT, AUTOMATED 184 10^3/uL (150-450); RED BLOOD COUNT 3.74 10^6/uL (4.30-6.10); WHITE BLOOD COUNT 9.2 10^3/uL (4.0-10.0)
[2019-08-07] MEDS ORDERED: LORazepam 2 MG TAB PO STA (09:49)
[2019-08-07 09:51] LABS: INR 2.16; PROTHROMBIN TIME 23.9 SECONDS (11.8-14.0)
[2019-08-07 09:52] LABS: PARTIAL THROMBOPLASTIN TIME 33.7 SECONDS (25.0-38.4)
--- NOTE | 2019-08-07 09:54 | REP ---
CHEST, SINGLE VIEW: Single view of the chest is performed and compared to a prior study of 03/26/2018. There is cardiomegaly. There are small bilateral pleural effusions. There is mild right base atelectasis/infiltrate. There is calcification of the thoracic aorta. Mediastinal silhouette is unchanged. Electronically Signed by Bala Ortiz MD 08/12/2019 05:49 P
[2019-08-07 10:05] LABS: ALBUMIN 3.4 GM/DL (3.2-5.2); ALT/SGPT 53 U/L (12-78); BILIRUBIN,DIRECT 0.2 MG/DL (0.0-0.2); BILIRUBIN,TOTAL 0.4 MG/DL (0.2-1.0); BLOOD UREA NITROGEN 29 MG/DL (7-18); CALCIUM LEVEL 8.9 MG/DL (8.8-10.2); CARBON DIOXIDE LEVEL 29 MEQ/L (21-32); CHLORIDE LEVEL 106 MEQ/L (98-107); CK-MB VALUE MASS 1.2 NG/ML (<3.6); CPK CREATINE PHOSPHOKINASE 54 U/L (39-308); CREATININE FOR GFR 2.29 MG/DL (0.70-1.30); GLOMERULAR FILTRATION RATE 29.6 (>42); GLUCOSE, FASTING 298 MG/DL (70-100); MB/CK RELATIVE INDEX 2.22 (< OR =4); POTASSIUM SERUM 4.2 MEQ/L (3.5-5.1); SODIUM LEVEL 141 MEQ/L (136-145); TOTAL PROTEIN 7.2 GM/DL (6.4-8.2); TROPONIN I < 0.02 NG/ML (< 0.10)
[2019-08-07 10:50] LABS: NT-PRO BNP 125 PG/ML (<450)
[2019-08-07 12:11] VITALS: O2SAT 98
[2019-08-07 14:15] VITALS: BP 157/74
--- NOTE | 2019-08-07 21:30 | ECGEPIP ---
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
== END 2019-08-07 14:46 | disposition home or self-care (01) ==
LOC: M ED 09:00
DX: G47.00 Insomnia, unspecified (principal); J90 Pleural effusion, not elsewhere classified; E11.9 Type 2 diabetes mellitus without complications; I10 Essential (primary) hypertension; J44.9 Chronic obstructive pulmonary disease, unspecified; I50.9 Heart failure, unspecified; E78.5 Hyperlipidemia, unspecified; Z79.899 Other long term (current) drug therapy; Z79.01 Long term (current) use of anticoagulants; Z88.1 Allergy status to other antibiotic agents; Z88.2 Allergy status to sulfonamides; Z88.5 Allergy status to narcotic agent; Z88.8 Allergy status to other drugs, medicaments and biological substances

== ENCOUNTER 2019-08-15 16:27 | Emergency (ER) | payer MEDICARE, BC ==
[~2019-08-15] VITALS: Ht 182.9 cm; Wt 110.0 kg
[~2019-08-15 16:27] MED LIST changes: +CLON1TAB8; +FEBU40TA2
--- NOTE | 2019-08-15 17:49 | REP ---
Portable chest x-ray: Single view. History: Dyspnea and cough. Comparison exam August 07, 2019. Findings: Monitoring electrodes overlie the chest. There is stable benign appearing pleural thickening bilaterally. Heart size is borderline. The lung jones are otherwise clear. Pleural angles are sharp. Pulmonary vasculature is not increased. Impression: No acute disease. Electronically Signed by Jacob Young MD 08/15/2019 05:38 P
[2019-08-15 18:18] LABS: VENOUS BASE EXCESS 1.7 (-2.0-2.0); VENOUS HCO3 27.6 MEQ/L (23.0-27.0); VENOUS O2 SATURATION 50.5 % (60.0-80.0); VENOUS PARTIAL PRESSURE CO2 48.3 mmHg (38.0-50.0); VENOUS PARTIAL PRESSURE O2 27.7 mmHg (30.0-50.0); VENOUS PH 7.375 UNITS (7.330-7.430); VENOUS STANDARD HCO3 24.9 MEQ/L; VENOUS TOTAL CO2 29.1 MEQ/L (24.0-28.0)
[2019-08-15 18:39] LABS: BASO # 0.1 10^3/uL (0.0-0.2); BASO % 0.6 % (0.0-1.0); EOS # 0.3 10^3/uL (0.0-0.5); EOS % 2.5 % (0.0-3.0); HEMATOCRIT 39.3 % (42.0-52.0); HEMOGLOBIN 13.2 g/dl (13.5-17.5); LYMPH # 1.9 10^3/uL (1.5-5.0); MEAN CORPUSCULAR HEMOGLOBIN 33.8 pg (27.0-33.0); MEAN CORPUSCULAR HGB CONC 33.6 g/dl (32.0-36.5); MEAN CORPUSCULAR VOLUME 100.8 fl (80.0-96.0); MONO # 1.8 10^3/uL (0.0-0.8); MONO % 16.3 % (0.0-5.0); NEUTROPHILS # 6.9 10^3/uL (1.5-8.5); PLATELET COUNT, AUTOMATED 184 10^3/uL (150-450)
[2019-08-15 18:45] VITALS: BP 147/68
[2019-08-15 18:51] LABS: INR 1.85; PROTHROMBIN TIME 21.1 SECONDS (11.8-14.0)
[2019-08-15 18:54] LABS: ALBUMIN 3.6 GM/DL (3.2-5.2); ALT/SGPT 60 U/L (12-78); BILIRUBIN,DIRECT 0.2 MG/DL (0.0-0.2); BILIRUBIN,TOTAL 0.5 MG/DL (0.2-1.0); CK-MB VALUE MASS < 1.0 NG/ML (<3.6); CPK CREATINE PHOSPHOKINASE 47 U/L (39-308); MB/CK RELATIVE INDEX 2.13 (< OR =4); NT-PRO BNP 95 PG/ML (<450); TOTAL PROTEIN 7.4 GM/DL (6.4-8.2); TROPONIN I < 0.02 NG/ML (< 0.10)
--- NOTE | 2019-08-15 19:28 | REPVR ---
PROCEDURE INFORMATION: Exam: CT Chest Without Contrast Exam date and time: 08/15/2019 7:05 PM Age: 78 years old Clinical indication: Shortness of breath; Additional info: Right sided rub on exam TECHNIQUE: Imaging protocol: Computed tomography of the chest without contrast. 3D rendering: MIP and/or 3D reconstructed images were created by the technologist. Radiation optimization: All CT scans at this facility use at least one of these dose optimization techniques: automated exposure control; mA and/or kV adjustment per patient size (includes targeted exams where dose is matched to clinical indication); or iterative reconstruction. COMPARISON: CT Chest without contrast 06/25/2014 1:04 PM (The report from this study was not available for review at the time of this interpretation.) FINDINGS: Tracheobronchial tree: Intact and patent. Lungs: There is atelectasis in the right middle lobe. There are few scattered scars in both lungs. No lung consolidation, mass, ground-glass opacification, or consolidation is noted. There are mild paraseptal emphysematous changes in the lung apices. Pleural space: No pneumothorax or pleural effusion. Incidental note is made of mildly increased pleural fat along the inferolateral aspect of the right hemithorax. No calcified pleural plaques are noted. Heart: No cardiomegaly or pericardial effusion is noted. There are coronary artery calcifications. Mediastinal space: No mediastinal mass, fluid collection, or pneumomediastinum. Aorta: No thoracic aortic aneurysm or intramural hematoma is noted. There are moderate atherosclerotic calcifications. Lymph nodes: No enlarged lymph nodes. Liver: The imaged portion of the liver is unremarkable. The inferior aspect of the right hepatic lobe was not imaged. Gallbladder and bile ducts: There has been a cholecystectomy. There is no fluid collection in the gallbladder fossa. No dilation of the bile ducts is noted. No calcified stones are seen in the common bile duct. Spleen: Unremarkable. No splenomegaly is noted. Adrenals: Normal. No adrenal mass is noted. Bones/joints: There is no fracture or dislocation. No suspicious osteolytic or osteoblastic lesion. There are bridging paraspinal osteophytes at multiple contiguous levels in the thoracic spine, which are findings compatible with diffuse idiopathic skeletal hyperostosis. Soft tissues: Unremarkable. No soft tissue fluid collection. IMPRESSION: No acute findings in the chest. Electronically signed by: Gautam Holliday On 08/15/2019 19:27:45 PM
--- NOTE | 2019-08-16 08:10 | ECGEPIP ---
[facility] - ED Test Date: 2019-08-15 Pat Name: ADRIANNE ALVARADO Department: Room: - Gender: Male [place] [employer]: kristen : 1940 Requested By: Margarita Sage Order Number: [id number] Reading MD: Margarita Sage Measurements Intervals [place] Rate: 73 P: 6 CT: 197 QRS: 36 QRSD: 93 T: 49 QT: 373 QTc: 413 Interpretive Statements SINUS RHYTHM NSTTW abnormalities INCREASED RATE 08/07/19 Electronically Signed on 08-16-2019 8:09:44 EDT by Margarita Sage
== END 2019-08-15 21:15 | disposition left against medical advice (07) ==
LOC: M ED 16:27
DX: R06.00 Dyspnea, unspecified (principal); E11.9 Type 2 diabetes mellitus without complications; J44.9 Chronic obstructive pulmonary disease, unspecified; I50.9 Heart failure, unspecified; E78.5 Hyperlipidemia, unspecified; F41.9 Anxiety disorder, unspecified; K21.9 Gastro-esophageal reflux disease without esophagitis; Z79.899 Other long term (current) drug therapy; Z79.01 Long term (current) use of anticoagulants; Z88.1 Allergy status to other antibiotic agents; Z88.2 Allergy status to sulfonamides; Z88.5 Allergy status to narcotic agent; Z88.8 Allergy status to other drugs, medicaments and biological substances; Z87.891 Personal history of nicotine dependence

== ENCOUNTER → 2019-09-01 | Outpatient (CLI) | payer MEDICARE, BC ==
[2019-09-01 06:55] LABS: INR 1.93; PROTHROMBIN TIME 21.8 SECONDS (11.8-14.0)
== END ==
LOC: M LAB 06:24
PROVIDERS: ATTEND Physician Assistant
DX: Z86.711 Personal history of pulmonary embolism (principal)

== ENCOUNTER → 2019-10-02 | Outpatient (CLI) | payer MEDICARE, BC ==
[2019-11-01 07:15] LABS: INR 2.25; PROTHROMBIN TIME 25.4 SECONDS (11.8-14.0)
== END ==
LOC: M LAB 13:03
PROVIDERS: ATTEND Physician Assistant
DX: Z86.711 Personal history of pulmonary embolism (principal)

== ENCOUNTER → 2019-11-07 | Outpatient (CLI) | payer MEDICARE, BC ==
[2019-11-07 08:45] LABS: INR 2.03; PROTHROMBIN TIME 23.4 SECONDS (11.8-14.0)
== END ==
LOC: M LAB 08:03
PROVIDERS: ATTEND Physician Assistant
DX: Z86.711 Personal history of pulmonary embolism (principal)

== ENCOUNTER → 2019-12-09 | Outpatient (CLI) | payer MEDICARE, BC ==
[2019-12-09 10:05] LABS: INR 2.14; PROTHROMBIN TIME 24.4 SECONDS (12.5-14.3)
== END ==
LOC: M LAB 08:13
PROVIDERS: ATTEND Physician Assistant
DX: Z79.01 Long term (current) use of anticoagulants (principal); Z86.711 Personal history of pulmonary embolism

== ENCOUNTER → 2020-01-07 | Outpatient (CLI) | payer MEDICARE, BC ==
[2020-01-07 09:49] LABS: INR 2.24; PROTHROMBIN TIME 25.3 SECONDS (12.5-14.3)
== END ==
LOC: M LAB 07:53
PROVIDERS: ATTEND Physician Assistant
DX: Z86.711 Personal history of pulmonary embolism (principal); Z79.01 Long term (current) use of anticoagulants

== ENCOUNTER → 2020-02-05 | Outpatient (CLI) | payer MEDICARE, BC ==
[2020-02-05 09:28] LABS: INR 2.71; PROTHROMBIN TIME 29.4 SECONDS (12.5-14.3)
[2020-02-05 09:42] LABS: ALBUMIN 3.3 GM/DL (3.2-5.2); BILIRUBIN,TOTAL 0.7 MG/DL (0.2-1.0); CALCIUM LEVEL 8.8 MG/DL (8.8-10.2); CHOLESTEROL RISK RATIO 2.92 (<5); CREATININE FOR GFR 2.08 MG/DL (0.70-1.30); POTASSIUM SERUM 4.5 MEQ/L (3.5-5.1); TOTAL PROTEIN 7.1 GM/DL (6.4-8.2)
== END ==
LOC: M LAB 08:20
PROVIDERS: ATTEND Physician Assistant
DX: I50.32 Chronic diastolic (congestive) heart failure (principal); E78.2 Mixed hyperlipidemia

== ENCOUNTER → 2020-03-04 | Outpatient (CLI) | payer MEDICARE, BC ==
[2020-03-04 10:00] LABS: INR 3.13; PROTHROMBIN TIME 32.9 SECONDS (12.5-14.3)
== END ==
LOC: M LAB 08:17
PROVIDERS: ATTEND Physician Assistant
DX: Z86.711 Personal history of pulmonary embolism (principal)

== ENCOUNTER → 2020-03-16 | Outpatient (CLI) | payer MEDICARE, BC ==
[2020-03-16 14:09] LABS: INR 2.23; PROTHROMBIN TIME 25.2 SECONDS (12.5-14.3)
== END ==
LOC: M LAB 13:26
PROVIDERS: ATTEND Physician Assistant
DX: Z86.711 Personal history of pulmonary embolism (principal)

== ENCOUNTER → 2020-04-01 | Outpatient (CLI) | payer MEDICARE, BC ==
[2020-04-01 08:27] LABS: INR 2.33; PROTHROMBIN TIME 26.1 SECONDS (12.5-14.3)
== END ==
LOC: M LAB 07:43
PROVIDERS: ATTEND Physician Assistant
DX: Z79.01 Long term (current) use of anticoagulants (principal)

== ENCOUNTER → 2020-04-30 | Outpatient (CLI) | payer MEDICARE, BC ==
[2020-04-30 11:41] LABS: INR 1.87; PROTHROMBIN TIME 21.9 SECONDS (12.5-14.3)
== END ==
LOC: M LAB 09:23
PROVIDERS: ATTEND Physician Assistant
DX: Z86.711 Personal history of pulmonary embolism (principal)

== ENCOUNTER → 2020-05-17 | Outpatient (CLI) | payer MEDICARE, BC ==
[2020-05-17 08:17] LABS: INR 1.48; PROTHROMBIN TIME 18.3 SECONDS (12.5-14.3)
== END ==
LOC: M LAB 07:38
PROVIDERS: ATTEND Physician Assistant
DX: Z51.81 Encounter for therapeutic drug level monitoring (principal); Z79.899 Other long term (current) drug therapy; Z86.711 Personal history of pulmonary embolism

== ENCOUNTER → 2020-05-31 | Outpatient (CLI) | payer MEDICARE, BC ==
[2020-05-31 08:35] LABS: INR 1.83; PROTHROMBIN TIME 21.6 SECONDS (12.5-14.3)
== END ==
LOC: M LAB 07:53
PROVIDERS: ATTEND Physician Assistant
DX: Z86.711 Personal history of pulmonary embolism (principal)

== ENCOUNTER → 2020-06-14 | Outpatient (CLI) | payer MEDICARE, BC ==
[2020-06-14 09:29] LABS: INR 2.81; PROTHROMBIN TIME 30.2 SECONDS (12.5-14.3)
== END ==
LOC: M LAB 07:38
PROVIDERS: ATTEND Physician Assistant
DX: Z86.711 Personal history of pulmonary embolism (principal)

== ENCOUNTER → 2020-07-12 | Outpatient (CLI) | payer MEDICARE, BC ==
[2020-07-12 08:20] LABS: INR 2.22; PROTHROMBIN TIME 25.1 SECONDS (12.5-14.3)
== END ==
LOC: M LAB 07:23
PROVIDERS: ATTEND Physician Assistant
DX: Z86.711 Personal history of pulmonary embolism (principal)

== ENCOUNTER → 2020-08-09 | Outpatient (CLI) | payer MEDICARE, BC ==
[2020-08-09 08:51] LABS: INR 2.29; PROTHROMBIN TIME 25.7 SECONDS (12.5-14.3)
== END ==
LOC: M LAB 07:51
PROVIDERS: ATTEND Physician Assistant
DX: Z86.711 Personal history of pulmonary embolism (principal)

== ENCOUNTER → 2020-09-06 | Outpatient (CLI) | payer MEDICARE, BC ==
[2020-09-06 10:39] LABS: INR 2.64; PROTHROMBIN TIME 28.8 SECONDS (12.5-14.3)
== END ==
LOC: M LAB 08:32
PROVIDERS: ATTEND Physician Assistant
DX: Z86.711 Personal history of pulmonary embolism (principal)

== ENCOUNTER → 2020-10-05 | Outpatient (CLI) | payer MEDICARE, BC ==
[2020-10-05 08:51] LABS: PROTHROMBIN TIME 31.4 SECONDS (12.7-14.5)
== END ==
LOC: M LAB 08:02
PROVIDERS: ATTEND Physician Assistant
DX: Z86.711 Personal history of pulmonary embolism (principal)

== ENCOUNTER → 2020-11-02 | Outpatient (CLI) | payer MEDICARE, BC ==
[2020-11-02 12:41] LABS: INR 2.83; PROTHROMBIN TIME 30.1 SECONDS (12.7-14.5)
== END ==
LOC: M LAB 11:39
PROVIDERS: ATTEND Physician Assistant
DX: Z86.711 Personal history of pulmonary embolism (principal)

== ENCOUNTER → 2020-11-29 | Outpatient (CLI) | payer MEDICARE, BC ==
[2020-11-29 16:54] LABS: INR 2.87; PROTHROMBIN TIME 30.5 SECONDS (12.7-14.5)
== END ==
LOC: M LAB 15:00
PROVIDERS: ATTEND Physician Assistant
DX: Z86.711 Personal history of pulmonary embolism (principal)

== ENCOUNTER → 2020-12-28 | Outpatient (CLI) | payer MEDICARE, BC ==
[2020-12-28 10:57] LABS: INR 3.79; PROTHROMBIN TIME 37.6 SECONDS (12.7-14.5)
== END ==
LOC: M LAB 09:36
PROVIDERS: ATTEND Physician Assistant
DX: Z86.711 Personal history of pulmonary embolism (principal)

== ENCOUNTER → 2021-01-18 | Outpatient (CLI) | payer MEDICARE, BC ==
[2021-01-18 09:19] LABS: INR 4.86; PROTHROMBIN TIME 45.5 SECONDS (12.7-14.5)
== END ==
LOC: M LAB 08:15
PROVIDERS: ATTEND Physician Assistant
DX: Z86.711 Personal history of pulmonary embolism (principal)

== ENCOUNTER 2021-01-21 10:56 | Emergency (ER) | payer MEDICARE, BC ==
[~2021-01-21] VITALS: Ht 182.9 cm; Wt 102.3 kg
[2021-01-21 10:58] VITALS: BP 134/60
--- OUTSIDE RECORDS SUMMARY | 2021-01-21 11:05 | CCD | Continuity of Care Document ---
Author Author Jorge Luis LOO PA Organization Unknown Address [address] [place] [address] [place] [address] Phone [phone] Care Team Providers Care Professor Of Religion Name Role Phone Lilliana Tran MD AUTM [phone] Christen Dailey DO AUTM [phone] Dolores Liriano MD AUTM [phone] Luiza Dai MS. SUPERVISOR [employer]ING [employer]ING AUTM [phone] Misael Kinsey MD AUTM [phone] Noah Fajardo MD AUTM [phone] Michael Cantrell MD AUTM [phone] Problems Active Problems Provider Date Chronic diastolic heart failure Alicia Ascencio, PA-C Onset: 07/04/2011 Benign hypertensive heart disease with congestive card iac failure Alicia Ascencio, PA-C Onset: 07/04/2011 Disorder of pericardium Alicia Ascencio, PA-C Onset: 07/04/19 12 H/O: pulmonary embolus Alicia Ascencio, PA-C Onset: 5 Chronic pulmonary heart disease Alicia Ascencio, PA-C Onset: 02/04/2015 Pure hypercholesterolemia Aliciaradha Ascencio, PA-C Onset: 2011 Obesity Aliciaradha Wyattw, PA-C Onset: 07/04/2011 Mixed hyperlipidemia Aliciaradha Ascencio, PA-C Onset: 02/09/2016 Secondary pulmonary hypertension Alicia Ascencio, PA-C Onset: 02/06/2017 Dietary management surveillance Alicia Ascencio PA-C Onset: 02/06/2017 Social History Type Date Description Comments Sex Unknown Tobacco Use Start: Unknown End: Unknown Former Cigarette Smo ker Smoked for 50 years up to 1ppd. Quit in 2002 ETOH Use Consumes Beer rare Tobacco Use Start: Unknown End: Unknown Patient is a former smoker up to 1ppd from age 16, quit in 2001 Smoking Status Reviewed: 08/11/20 Patient is a former smoker up to 1ppd from age 16, quit in 2001 Exercise Type/Frequency Does yardwork four times a week Exercise Type/Frequency Does housework daily Exercise Limitations Shortness Of Breath Exercise Limitations Muscle Pain Exercise Limitations Joint Pain hips "burni ng" when walking short distances Exercise Limitations Fatigue Allergies, Adverse Reactions, Alerts Active Allergies Criticality Reaction | Severity Comments Date Sulfa Unable to assess criticality severe nause a 02/24/2011 Allopurinol Unable to assess criticality sev ere n/v, itching, loss of appetite/taste, severe fatigue 07/04/2011 Xanax Unable to assess criticality "can't walk, can't function, zombie-like" 08/02/2014 Zaleplon Unable to assess criticality N/V 04/22/2018 Inactive Allergies NKDA Unable to assess criticality 03/08/2006 Medications Active Medications SIG Qnty Indications Ordering Provide r Date Jardiance 10mg Tablets 1 by mouth every morning I50.32 Noah Fajardo MD 021 Bystolic 5mg Tablets 1 by mouth every day Unknown 02/09/2020 Januvia 100mg Tablets 1 by mouth every day Unknown 08/15/2018 Ferrous Gluconate 324(38Fe) mg Tab lets 1 by mouth once a day Noah Fajardo MD Virt-Phos 250 Neutral [phone] Tablets 1 daily Noah Fajardo MD Super B-Complex Capsules 1 by mouth every day Unknown 08/14/2017 Repaglinide 1mg Tablets 1 by mouth 3 times daily with meals Dolores Liriano MD 08/23/2016 Calcitriol 0.25mcg Capsules 1 by mouth every Mon-Fri only Dolores Liriano MD 08/02/2014 Fish Oil Maximum Strength 1200mg C apsules Unknown 01/28/2014 Atorvastatin Calcium 80mg Tablets 1/2 by mouth every night at bedtime 45tabs E78.00 Ollie Moore MD 01/28/2014 Warfarin Sodium 5mg Tablets 1-2 by mouth every day as directed 180tabs Z86.711 Clyde Pineda MD Immunizations Description No Information Available Vital Signs Date Vital Result Comment 08/11/2020 10:17am Weight 218.00 lb Height 72 inches 6'0" BMI (Body Mass Index) 29.6 kg/m2 Heart Rate 56 /min Regular Respiratory Rate 16 /min BP Systolic Right Arm 126 mmHg sitting, regular c uff BP Diastolic Right Arm 64 mmHg sitting, regular cuff BP Systolic Left Arm 126 mmHg sitting BP Diastolic Left Arm 60 mmHg sitting 02/10/2020 10:00am Weight 223.00 lb Height 72 inches 6'0" BMI (Body Mass Index) 30.2 kg/m2 Heart Rate 52 /min Regular Respiratory Rate 16 /min BP Systolic Right Arm 128 mmHg sitting, regular c uff BP Diastolic Right Arm 76 mmHg sitting, regular cuff BP Systolic Left Arm 128 mmHg sitting BP Diastolic Left Arm 72 mmHg sitting Results Test Acquired Date Facility Test Result H/L Range Note Prothrombin Time/Inr 11/02/2020 [facility] enter [phone] Prothrombin Time 30.1 seconds High 12.7-14.5 Inr 2.83 Normal 1 Prothrombin Time/Inr 10/05/2020 [facility] enter [phone] Prothrombin Time 31.4 seconds High 12.7-14.5 Inr 3.00 Normal 2 CBC without Differential 09/13/2020 [facility] ([facility])- - White Blood Count 12.4 High 5.0-10.0 Red Blood Count 4.06 Low 4.70-6.10 Platelets 190 172-450 Hemoglobin 13.8 Low 14.0-18.0 Hematocrit 42.1 42.0-52.0 Renal Profile 09/13/2020 [facility] (315)- - Glucose 226 High 70-106 Blood Urea Nitrogen 25.8 High 7-18 Creatinine 1.9 High 0.55-1.3 GFR (Calculated) 34 Sodium 134.3 Low 135-145 Potassium 4.13 3.5-5.5 Chloride 102.6 94-110 Carbon Dioxide 28.2 21-32 Calcium 9.5 8.5-10.1 Phosphorus 2.5 Albumin 3.9 3.2-5.2 Prothrombin Time/Inr 09/06/2020 [facility] enter [phone] Prothrombin Time 28.8 seconds High 12.5-14.3 Inr 2.64 Normal 3 Prothrombin Time/Inr 08/09/2020 [facility] enter [phone] Prothrombin Time 25.7 seconds High 12.5-14.3 Inr 2.29 Normal 4 Prothrombin Time/Inr 07/12/2020 [facility] enter [phone] Prothrombin Time 25.1 seconds High 12.5-14.3 Inr 2.22 Normal 5 Prothrombin Time/Inr 06/14/2020 [facility] enter [phone] Prothrombin Time 30.2 seconds High 12.5-14.3 Inr 2.81 Normal 6 Prothrombin Time/Inr 05/31/2020 [facility] enter [phone] Prothrombin Time 21.6 seconds High 12.5-14.3 Inr 1.83 Normal 7 Prothrombin Time/Inr 05/17/2020 [facility] enter [phone] Prothrombin Time 18.3 seconds High 12.5-14.3 Inr 1.48 Normal 8 Renal Profile 05/12/2020 [facility] Glucose 218 Blood Urea Nitrogen 25.1 Creatinine 1.9 GFR (Calculated) 34 Sodium 144.7 Potassium 4.07 Chloride 106.7 Carbon Dioxide 29.8 Calcium 8.9 Phosphorus 2.9 Albumin 3.8 Laboratory test finding 05/12/2020 [facility] Uric Acid 3.1 CBC without Differential 05/12/2020 [facility] White Blood Count 10.6 Red Blood Count 4.03 Platelets 165 Hemoglobin 13.6 Hematocrit 41.2 1 THERAPUTIC HUMAN INR VALUES INDICATIONS NORMAL RANGES PROPHYLAXIS/TREATMENT OF: VENOUS THROMBOSIS 2.0-3.0 PULMONARY EMBOLISM 2.0-3.0 PREVENTION OF SYSTEMIC EMBOLISM FROM: TISSUE HEART VALVES 2.0-3.0 ACUTE MYOCARDIAL INFARCTION 2.0-3.0 VALVULAR HEART DISEASE 2.0-3.0 ATRIAL FIBRILLATION 2.0-3.0 MECHANICAL VALVES(HIGH RISK) 2.5-3.5 RECURRENT MYOCARDIAL INFARCTION 2.5-3.5 2 THERAPUTIC HUMAN INR VALUES INDICATIONS NORMAL RANGES PROPHYLAXIS/TREATMENT OF: VENOUS THROMBOSIS 2.0-3.0 PULMONARY EMBOLISM 2.0-3.0 PREVENTION OF SYSTEMIC EMBOLISM FROM: TISSUE HEART VALVES 2.0-3.0 ACUTE MYOCARDIAL INFARCTION 2.0-3.0 VALVULAR HEART DISEASE 2.0-3.0 ATRIAL FIBRILLATION 2.0-3.0 MECHANICAL VALVES(HIGH RISK) 2.5-3.5 RECURRENT MYOCARDIAL INFARCTION 2.5-3.5 3 THERAPUTIC HUMAN INR VALUES INDICATIONS NORMAL RANGES PROPHYLAXIS/TREATMENT OF: VENOUS THROMBOSIS 2.0-3.0 PULMONARY EMBOLISM 2.0-3.0 PREVENTION OF SYSTEMIC EMBOLISM FROM: TISSUE HEART VALVES 2.0-3.0 ACUTE MYOCARDIAL INFARCTION 2.0-3.0 VALVULAR HEART DISEASE 2.0-3.0 ATRIAL FIBRILLATION 2.0-3.0 MECHANICAL VALVES(HIGH RISK) 2.5-3.5 RECURRENT MYOCARDIAL INFARCTION 2.5-3.5 4 THERAPUTIC HUMAN INR VALUES INDICATIONS NORMAL RANGES PROPHYLAXIS/TREATMENT OF: VENOUS THROMBOSIS 2.0-3.0 PULMONARY EMBOLISM 2.0-3.0 PREVENTION OF SYSTEMIC EMBOLISM FROM: TISSUE HEART VALVES 2.0-3.0 ACUTE MYOCARDIAL INFARCTION 2.0-3.0 VALVULAR HEART DISEASE 2.0-3.0 ATRIAL FIBRILLATION 2.0-3.0 MECHANICAL VALVES(HIGH RISK) 2.5-3.5 RECURRENT MYOCARDIAL INFARCTION 2.5-3.5 5 THERAPUTIC HUMAN INR VALUES INDICATIONS NORMAL RANGES PROPHYLAXIS/TREATMENT OF: VENOUS THROMBOSIS 2.0-3.0 PULMONARY EMBOLISM 2.0-3.0 PREVENTION OF SYSTEMIC EMBOLISM FROM: TISSUE HEART VALVES 2.0-3.0 ACUTE MYOCARDIAL INFARCTION 2.0-3.0 VALVULAR HEART DISEASE 2.0-3.0 ATRIAL FIBRILLATION 2.0-3.0 MECHANICAL VALVES(HIGH RISK) 2.5-3.5 RECURRENT MYOCARDIAL INFARCTION 2.5-3.5 6 THERAPUTIC HUMAN INR VALUES INDICATIONS NORMAL RANGES PROPHYLAXIS/TREATMENT OF: VENOUS THROMBOSIS 2.0-3.0 PULMONARY EMBOLISM 2.0-3.0 PREVENTION OF SYSTEMIC EMBOLISM FROM: TISSUE HEART VALVES 2.0-3.0 ACUTE MYOCARDIAL INFARCTION 2.0-3.0 VALVULAR HEART DISEASE 2.0-3.0 ATRIAL FIBRILLATION 2.0-3.0 MECHANICAL VALVES(HIGH RISK) 2.5-3.5 RECURRENT MYOCARDIAL INFARCTION 2.5-3.5 7 THERAPUTIC HUMAN INR VALUES INDICATIONS NORMAL RANGES PROPHYLAXIS/TREATMENT OF: VENOUS THROMBOSIS 2.0-3.0 PULMONARY EMBOLISM 2.0-3.0 PREVENTION OF SYSTEMIC EMBOLISM FROM: TISSUE HEART VALVES 2.0-3.0 ACUTE MYOCARDIAL INFARCTION 2.0-3.0 VALVULAR HEART DISEASE 2.0-3.0 ATRIAL FIBRILLATION 2.0-3.0 MECHANICAL VALVES(HIGH RISK) 2.5-3.5 RECURRENT MYOCARDIAL INFARCTION 2.5-3.5 8 THERAPUTIC HUMAN INR VALUES INDICATIONS NORMAL RANGES PROPHYLAXIS/TREATMENT OF: VENOUS THROMBOSIS 2.0-3.0 PULMONARY EMBOLISM 2.0-3.0 PREVENTION OF SYSTEMIC EMBOLISM FROM: TISSUE HEART VALVES 2.0-3.0 ACUTE MYOCARDIAL INFARCTION 2.0-3.0 VALVULAR HEART DISEASE 2.0-3.0 ATRIAL FIBRILLATION 2.0-3.0 MECHANICAL VALVES(HIGH RISK) 2.5-3.5 RECURRENT MYOCARDIAL INFARCTION 2.5-3.5 Procedures Date Code Description Status 11/03/2020 66201 Anticoagulant MGMT F or Patient Taking Warfarin, Inc Review & Intr Completed 10/06/2020 40046 Anticoagulant MGMT F or Patient Taking Warfarin, Inc Review & Intr Completed 09/06/2020 62423 Anticoagulant MGMT F or Patient Taking Warfarin, Inc Review & Intr Completed 08/11/2020 80381 Office/Outpatient Established Mo d MDM 30-39 Min Completed 08/11/2020 88553 ECG 12-Lead Completed 08/10/2020 29800 Anticoagulant MGMT F or Patient Taking Warfarin, Inc Review & Intr Completed 07/12/2020 45483 Anticoagulant MGMT F or Patient Taking Warfarin, Inc Review & Intr Completed 06/14/2020 21008 Anticoagulant MGMT F or Patient Taking Warfarin, Inc Review & Intr Completed 05/31/2020 19347 Anticoagulant MGMT F or Patient Taking Warfarin, Inc Review & Intr Completed Medical Devices Description No Information Available Encounters Type Date Location Provider Dx Diagnosis Office Visit 08/11/2020 10:15a Main Office Alicia Ascencio PA-C I50.3 2 Chronic diastolic (congestive) heart failure I11.0 Hypertensive heart disease w ith heart failure I27.29 Other secondary pulmonary hy pertension Z86.711 Personal history of pulmonar y embolism E78.2 Mixed hyperlipidemia Z71.3 Dietary counseling and surve illance Assessments Date Code Description Provider 11/03/2020 Z86.711 Personal history of pulmonary em bolism SUSU Vaca 11/03/2020 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 SUSU [place]aca 10/06/2020 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 Alicia Ascencio, PA-C 09/06/2020 Z86.711 Personal history of pulmonary em bolism Alicia Ascencio, PA-C 08/11/2020 I50.32 Chronic diastolic (congestive) h eart failure Alicia Ascencio, PA-C 08/11/2020 I11.0 Hypertensive heart disease with heart failure Alicia Ascencio, PA-C 08/11/2020 I27.29 Other secondary pulmonary hypert ension Alicia Ascencio, PA-C 08/11/2020 Z86.711 Personal history of pulmonary em bolism Alicia Ascencio, PA-C 08/11/2020 E78.2 Mixed hyperlipidemia Alicia matta, PA-C 08/11/2020 Z71.3 Dietary counseling and surveilla nce Alicia Ascencio, PA-C 08/10/2020 Z86.711 Personal history of pulmonary em bolism Alicia Radha Wyattw, PA-C 08/10/2020 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 Alicia Wyattw, PA-C 07/12/2020 Z86.711 Personal history of pulmonary em bolism Alicia Radha Wyattw, PA-C 07/12/2020 Z79.01 detention (current) use of antic oagulants Alicia Wyattw, PA-C 06/14/2020 Z86.711 Personal history of pulmonary em bolism Alicia Radha Wyattw, PA-C 06/14/2020 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 Call the office for weight gain of 3 lbs or more. * I11.0 Hypertensive heart disease with heart failure * I27.29 Other secondary pulmonary hypertension * Z86.711 Personal history of pulmonary embolism * E78.2 Mixed hyperlipidemia * Z71.3 Dietary counseling and surveillance* Recommendations:* Follow a low fat/low cholesterol diet and do as much aerobic exercise as you can tolerate. * All * Follow up:* 6 month follow up. Functional Status Functional Condition Comment Date Status Independent with all ADL's Activ e Mental Status Description No Information Available Referrals Description No Information Available
--- OUTSIDE RECORDS SUMMARY | 2021-01-21 11:05 | CCD | Continuity of Care Document ---
Author Author Jorge Luis POZO PA-C Organization Unknown Address [address] [place] [address], [facility] [place] [address] Phone [phone] Care Team Providers Care Donor Relations Associate Name Role Phone Lilliana Tran MD AUTM [phone] Christen Dailey DO AUTM [phone] Dolores Liriano MD AUTM [phone] Luiza Dai MS. GIFT SHOP MANAGER AUTM [phone] Misael Kinsey MD AUTM [phone] Noah Fajardo MD AUTM [phone] Michael Cantrell MD AUTM [phone] Problems Active Problems Provider Date Chronic diastolic heart failure Alicia Pozo, PA-C Onset: 07/04/2011 Benign hypertensive heart disease with congestive card iac failure Alicia Pozo PA-C Onset: 07/04/2011 Disorder of pericardium Alicia Pozo, PA-C Onset: 07/04/19 12 H/O: pulmonary embolus Alicia Pozo, PA-C Onset: 5 Chronic pulmonary heart disease Alicia Pozo PA-C Onset: 02/04/2015 Pure hypercholesterolemia Alicia Pozo PA-C Onset: 2011 Obesity Alicia Pozo, PA-C Onset: 07/04/2011 Mixed hyperlipidemia Alicia Pozo, PA-C Onset: 02/09/2016 Secondary pulmonary hypertension Alicia Pozo PA-C Onset: 02/06/2017 Dietary management surveillance Alicia Pozo PA-C Onset: 02/06/2017 Social History Type Date [...] when walking short distances Exercise Limitations Fatigue Allergies and adverse reactions Active Allergies Criticality Reaction | Severity Comments [...] day Noah Fajardo MD [facility] 250 Neutral [phone] Tablets 1 daily Noah Fajardo MD Super [...] Test Result H/L Range Note Prothrombin Time/Inr 11/29/2020 [facility] enter [phone] Prothrombin Time 30.5 seconds High 12.7-14.5 Inr 2.87 Normal 1 Prothrombin Time/Inr 11/02/2020 [facility] enter [phone] Prothrombin Time 30.1 seconds High 12.7-14.5 Inr 2.83 Normal 2 Prothrombin Time/Inr 10/05/2020 [facility] enter [phone] Prothrombin Time 31.4 seconds High 12.7-14.5 Inr 3.00 Normal 3 CBC without Differential 09/13/2020 [facility] ([phone] - White Blood Count 12.4 [...] 2.5 Albumin 3.9 3.2-5.2 Prothrombin Time/Inr 09/06/2020 [facility] enter [phone] Prothrombin Time 28.8 seconds High 12.5-14.3 Inr 2.64 Normal 4 Prothrombin Time/Inr 08/09/2020 [facility] enter [phone] Prothrombin Time 25.7 seconds High 12.5-14.3 Inr 2.29 Normal 5 Prothrombin Time/Inr 07/12/2020 [facility] enter [phone] Prothrombin Time 25.1 seconds High 12.5-14.3 Inr 2.22 Normal 6 1 THERAPUTIC HUMAN INR VALUES INDICATIONS NORMAL [...] INFARCTION 2.5-3.5 Procedures Date Code Description Status 12/01/2020 37921 Anticoagulant MGMT F or Patient Taking Warfarin, Inc Review & Intr Completed 11/03/2020 21116 Anticoagulant MGMT F or Patient Taking Warfarin, Inc Review & Intr Completed 10/06/2020 30812 Anticoagulant MGMT F or Patient Taking Warfarin, Inc Review & Intr Completed 09/06/2020 56098 Anticoagulant MGMT F or Patient Taking Warfarin, Inc Review & Intr Completed 08/11/2020 34368 Office/Outpatient Established Mo d MDM 30-39 Min Completed 08/11/2020 08154 ECG 12-Lead Completed 08/10/2020 86894 Anticoagulant MGMT F or Patient Taking Warfarin, Inc Review & Intr Completed 07/12/2020 44606 Anticoagulant MGMT F or Patient Taking Warfarin, Inc Review & Intr Completed Medical Devices Description No Information Available Encounters Type Date Location Provider Dx Diagnosis Office Visit 08/11/2020 10:15a Main Office Alicia Pozo, PA-C I50.3 2 Chronic diastolic (congestive) heart failure I11.0 Hypertensive heart disease w ith heart failure I27.29 Other secondary pulmonary hy pertension Z86.711 Personal history of pulmonar y embolism E78.2 Mixed hyperlipidemia Z71.3 Dietary counseling and surve illance Assessments Date Code Description Provider 12/01/2020 Z86.711 Personal history of pulmonary em bolism Aliica Pozo, PA-C 12/01/2020 Z79.01 nursing home (current) use of antic oagulants Alicia Pozo, PA-C 11/03/2020 Z86.711 Personal history of pulmonary em bolism Judith Lugo, PA 11/03/2020 Z79.01 long term care social worker (current) use of antic oagulants Judith Lugo PA 10/06/2020 Z79.01 long term care social worker (current) use of antic oagulants Alicia Pozo, PA-C 09/06/2020 Z86.711 Personal history of pulmonary em bolism Alicia Pozo, PA-C 08/11/2020 I50.32 Chronic diastolic (congestive) h eart failure Alicia Pozo, PA-C 08/11/2020 I11.0 Hypertensive heart disease with heart failure Alicia Pozo, PA-C 08/11/2020 I27.29 Other secondary pulmonary hypert ension Alicia Pozo, PA-C 08/11/2020 Z86.711 Personal history of pulmonary em bolism Alicia Pozo, PA-C 08/11/2020 E78.2 Mixed hyperlipidemia Alicia matta, PA-C 08/11/2020 Z71.3 Dietary counseling and surveilla nce Alicia Pozo, PA-C 08/10/2020 Z86.711 Personal history of pulmonary em bolism Alicia Pozo, PA-C 08/10/2020 Z79.01 long term care social worker (current) use of antic oagulants Alicia Pozo, PA-C 07/12/2020 Z86.711 Personal history of pulmonary em bolism Alicia Pozo PA-C 07/12/2020 Z79.01 long term care social worker (current) use of antic oagulants Alicia Pozo PA-C Plan of Treatment Future Appointment(s):* 02/10/2021 10:45 am - Alicia Pozo PA-C at Main Office 08/11/2020 - Alicia Pozo PA-C* I50.32 Chronic diastolic (congestive) heart failure* [...]
--- OUTSIDE RECORDS SUMMARY | 2021-01-21 11:05 | CCD | Continuity of Care Document ---
Author Author Jorge Luis LOO PA Organization Unknown Address [address] [place] [address] [place] [address] Phone [phone] Care Team Providers Care Retail Seasonal Specialist Name Role Phone Lilliana Tran MD AUTM [phone] Christen Dailey DO AUTM [phone] Dolores Liriano MD AUTM [phone] Luiza Dai MS. SPECIFICATION CONSULTANT AUTM [phone] Misael Kinsey MD AUTM [phone] Noah Fajardo MD AUTM [phone] Michael Cantrell MD AUTM [phone] Problems Active Problems Provider Date Chronic diastolic [...] day Noah Fajardo MD [facility]-Phos 250 Neutral [phone] Tablets 1 daily Noah Fajardo MD Super [...] Test Result H/L Range Note Prothrombin Time/Inr 01/18/2021 [facility] enter [phone] Prothrombin Time 45.5 seconds High 12.7-14.5 Inr 4.86 Normal 1 Prothrombin Time/Inr 12/28/2020 [facility] enter [phone] Prothrombin Time 37.6 seconds High 12.7-14.5 Inr 3.79 Normal 2 Prothrombin Time/Inr 11/29/2020 [facility] enter [phone] Prothrombin Time 30.5 seconds High 12.7-14.5 Inr 2.87 Normal 3 Prothrombin Time/Inr 11/02/2020 [facility] enter [phone] Prothrombin Time 30.1 seconds High 12.7-14.5 Inr 2.83 Normal 4 Prothrombin Time/Inr 10/05/2020 [facility] enter [phone] Prothrombin Time 31.4 seconds High 12.7-14.5 Inr 3.00 Normal 5 CBC without Differential 09/13/2020 [facility] [...] 2.5 Albumin 3.9 3.2-5.2 Prothrombin Time/Inr 09/06/2020 [facility] enter [phone] Prothrombin Time 28.8 seconds High 12.5-14.3 Inr 2.64 Normal 6 Prothrombin Time/Inr 08/09/2020 [facility] enter [phone] Prothrombin Time 25.7 seconds High 12.5-14.3 Inr 2.29 Normal 7 1 THERAPUTIC HUMAN INR VALUES INDICATIONS NORMAL [...] INFARCTION 2.5-3.5 Procedures Date Code Description Status 12/28/2020 41215 Anticoagulant MGMT F or Patient Taking Warfarin, Inc Review & Intr Completed 12/01/2020 41858 Anticoagulant MGMT F or Patient Taking Warfarin, Inc Review & Intr Completed 11/03/2020 67268 Anticoagulant MGMT F or Patient Taking Warfarin, Inc Review & Intr Completed 10/06/2020 16895 Anticoagulant MGMT F or Patient Taking Warfarin, Inc Review & Intr Completed 09/06/2020 20075 Anticoagulant MGMT F or Patient Taking Warfarin, Inc Review & Intr Completed 08/11/2020 49675 Office/Outpatient Established Mo d MDM 30-39 Min Completed 08/11/2020 03088 ECG 12-Lead Completed 08/10/2020 81948 Anticoagulant MGMT F or Patient Taking Warfarin, [...] surve illance Assessments Date Code Description Provider 12/28/2020 Z86.711 Personal history of pulmonary em bolism SUSU Vaca 12/28/2020 Z79.01 ocean transportation intermediary (current) use of antic oagulanSUSU Ball 12/28/2020 I48.0 Paroxysmal atrial fibrillation SUSU Bravo 12/01/2020 Z86.711 Personal history of pulmonary em bolism Alicia Ascencio PA-C 12/01/2020 Z79.01 senior living (current) use of antic oagulants Alicia Ascencio PA-C 11/03/2020 Z86.711 Personal history of pulmonary em bolism SUSU Vaca 11/03/2020 Z79.01 ocean transportation intermediary (current) use of antic omergulanSUSU Ball 10/06/2020 Z79.01 ocean transportation intermediary (current) use of antic oagulants Alicia Ascencio PA-C 09/06/2020 Z86.711 Personal history of pulmonary em bolism Alicia Ascencio PA-C 08/11/2020 I50.32 Chronic diastolic (congestive) h eart failure Alicia Ascencio PA-C 08/11/2020 I11.0 Hypertensive heart disease with heart failure Alicia Ascencio PA-C 08/11/2020 I27.29 Other secondary pulmonary hypert ension Alicia Ascencio PA-C 08/11/2020 Z86.711 Personal history of pulmonary em annieism Alicia Ascencio PA-C 08/11/2020 E78.2 Mixed hyperlipidemia Alicia matta PA-C 08/11/2020 Z71.3 Dietary counseling and surveilla madihae Alicia Ascencio PA-C 08/10/2020 Z86.711 Personal history of pulmonary em annieism Alicia Ascencio PA-C 08/10/2020 Z79.01 ocean transportation intermediary (current) use of antic oagulants Alicia Ascencio [...]
--- OUTSIDE RECORDS SUMMARY | 2021-01-21 11:05 | CCD | Continuity of Care Document ---
Author Author Jorge Luis POZO PA-C Organization Unknown Address [address] [place] [address], [place] [address] Phone [phone] Care Team Providers Care Seismograph Recorder Name Role Phone Lilliana Tran MD AUTM [phone] Christen Dailey DO AUTM [phone] Dolores Liriano MD AUTM [phone] Luiza Dai MS. MILKING MACHINE TECHNICIAN AUTM [phone] Misael Kinsey MD AUTM [phone] Noah Fajardo MD AUTM [phone] Michael Cantrell MD AUTM [phone] Problems Active Problems Provider Date Chronic diastolic [...] day Noah Fajardo MD [facility]-Phos 250 Neutral [phone] Tablets 1 daily Noah Fajardo MD Super [...] Result H/L Range Note Prothrombin Time/Inr 11/02/2020 [facility] enter [phone] Prothrombin Time 30.1 seconds High 12.7-14.5 Inr 2.83 Normal 1 Prothrombin Time/Inr 10/05/2020 [facility] enter [phone] Prothrombin Time 31.4 seconds High 12.7-14.5 Inr 3.00 Normal 2 CBC without Differential 09/13/2020 [facility] Cho[facility] [...] 2.5 Albumin 3.9 3.2-5.2 Prothrombin Time/Inr 09/06/2020 [facility] enter [phone] Prothrombin Time 28.8 seconds High 12.5-14.3 Inr 2.64 Normal 3 Prothrombin Time/Inr 08/09/2020 [facility] enter [phone] Prothrombin Time 25.7 seconds High 12.5-14.3 Inr 2.29 Normal 4 Prothrombin Time/Inr 07/12/2020 [facility] enter [phone] Prothrombin Time 25.1 seconds High 12.5-14.3 Inr 2.22 Normal 5 Prothrombin Time/Inr 06/14/2020 [facility] enter [phone] Prothrombin Time 30.2 seconds High 12.5-14.3 Inr 2.81 Normal 6 Prothrombin Time/Inr 05/31/2020 [facility] enter [phone] Prothrombin Time 21.6 seconds High 12.5-14.3 Inr 1.83 Normal 7 Prothrombin Time/Inr 05/17/2020 [facility] enter [phone] Prothrombin Time 18.3 seconds High 12.5-14.3 Inr [...] INFARCTION 2.5-3.5 Procedures Date Code Description Status 10/06/2020 49201 Anticoagulant MGMT F or Patient Taking Warfarin, Inc Review & Intr Completed 09/06/2020 00364 Anticoagulant MGMT F or Patient Taking Warfarin, Inc Review & Intr Completed 08/11/2020 31823 Office/Outpatient Established Mo d MDM 30-39 Min Completed 08/11/2020 65844 ECG 12-Lead Completed 08/10/2020 83405 Anticoagulant MGMT F or Patient Taking Warfarin, Inc Review & Intr Completed 07/12/2020 99924 Anticoagulant MGMT F or Patient Taking Warfarin, Inc Review & Intr Completed 06/14/2020 66612 Anticoagulant MGMT F or Patient Taking Warfarin, Inc Review & Intr Completed 05/31/2020 57310 Anticoagulant MGMT F or Patient Taking Warfarin, Inc Review & Intr Completed Medical Devices Description No Information Available Encounters Type Date Location Provider Dx Diagnosis Office Visit 08/11/2020 10:15a Main Office Alicia Pozo PA-C I50.3 2 Chronic diastolic (congestive) heart failure I11.0 Hypertensive heart disease w ith heart failure I27.29 Other secondary pulmonary hy pertension Z86.711 Personal history of pulmonar y embolism E78.2 Mixed hyperlipidemia Z71.3 Dietary counseling and surve illance Assessments Date Code Description Provider 10/06/2020 Z79.01 halfway (current) use of antic oagulants Alicia Wyattw, PA-C 09/06/2020 Z86.711 Personal history of pulmonary em bolism Alicia Wyattw, PA-C 08/11/2020 I50.32 Chronic diastolic (congestive) h eart failure Alicia Pozo, PA-C 08/11/2020 I11.0 Hypertensive heart disease with heart failure Alicia Pozo, PA-C 08/11/2020 I27.29 Other secondary pulmonary hypert ension Alicia Wyattw, PA-C 08/11/2020 Z86.711 Personal history of pulmonary em bolism Alicia Pzoo, PA-C 08/11/2020 E78.2 Mixed hyperlipidemia Alicia Feldman now, PA-C 08/11/2020 Z71.3 Dietary counseling and surveilla nce Alicia Pozo, PA-C 08/10/2020 Z86.711 Personal history of pulmonary em bolism Alicia Pozo, PA-C 08/10/2020 Z79.01 terminal manager (current) use of antic oagulants Alicia Wyattw, PA-C 07/12/2020 Z86.711 Personal history of pulmonary em bolism Alicia Pozo, PA-C 07/12/2020 Z79.01 halfway (current) use of antic oagulants Alicia Wyattw, PA-C 06/14/2020 Z86.711 Personal history of pulmonary em bolism Alicia Pozo, PA-C 06/14/2020 Z79.01 halfway (current) use of antic oagulants Alicia Wyattw, PA-C 05/31/2020 Z86.711 Personal history of pulmonary em bolism Alicia Pozo, PA-C 05/31/2020 Z79.01 halfway (current) use of antic oagulants Alicia Pozo, PA-C Plan of Treatment Future Appointment(s):* 02/10/2021 [...]
--- OUTSIDE RECORDS SUMMARY | 2021-01-21 11:05 | CCD | Continuity of Care Document ---
Author Author Jorge Luis LOO PA Organization Unknown Address [address] [place] [address] [place] [address] Phone [phone] Care Team Providers Care Heel Emery Buffer Name Role Phone Lilliana Tran MD AUTM [phone] Christen Dailey DO AUTM [phone] Dolores Liriano MD AUTM [phone] Luiza Dai MS. LIFE SCIENCES DIRECTOR AUTM [phone] Misael Kinsey MD AUTM [phone] Noah Fajardo MD AUTM [phone] Michael Cantrell MD AUTM [phone] Problems Active Problems Provider Date Chronic diastolic [...] day Noah Fajardo MD [facility]-Phos 250 Neutral [phone] Tablets 1 daily Noah Fajardo MD Super [...] Test Result H/L Range Note Prothrombin Time/Inr 12/28/2020 [facility] enter [phone] Prothrombin Time 37.6 seconds High 12.7-14.5 Inr 3.79 Normal 1 Prothrombin Time/Inr 11/29/2020 [facility] enter [phone] Prothrombin Time 30.5 seconds High 12.7-14.5 Inr 2.87 Normal 2 Prothrombin Time/Inr 11/02/2020 [facility] enter [phone] Prothrombin Time 30.1 seconds High 12.7-14.5 Inr 2.83 Normal 3 Prothrombin Time/Inr 10/05/2020 [facility] enter [phone] Prothrombin Time 31.4 seconds High 12.7-14.5 Inr 3.00 Normal 4 CBC without Differential 09/13/2020 [facility] Cho[facility] e [...] 2.5 Albumin 3.9 3.2-5.2 Prothrombin Time/Inr 09/06/2020 [facility] enter [phone] Prothrombin Time 28.8 seconds High 12.5-14.3 Inr 2.64 Normal 5 Prothrombin Time/Inr 08/09/2020 [facility] enter [phone] Prothrombin Time 25.7 seconds High 12.5-14.3 Inr 2.29 Normal 6 Prothrombin Time/Inr 07/12/2020 [facility] enter [phone] Prothrombin Time 25.1 seconds High 12.5-14.3 Inr 2.22 Normal 7 1 THERAPUTIC HUMAN INR VALUES [...] 2.5-3.5 Procedures Date Code Description Status 12/28/2020 19952 Anticoagulant MGMT F or Patient Taking Warfarin, Inc Review & Intr Completed 12/01/2020 20165 Anticoagulant MGMT F or Patient Taking Warfarin, Inc Review & Intr Completed 11/03/2020 29721 Anticoagulant MGMT F or Patient Taking Warfarin, Inc Review & Intr Completed 10/06/2020 82205 Anticoagulant MGMT F or Patient Taking Warfarin, Inc Review & Intr Completed 09/06/2020 26697 Anticoagulant MGMT F or Patient Taking Warfarin, Inc Review & Intr Completed 08/11/2020 04680 Office/Outpatient Established Mo d MDM 30-39 Min Completed 08/11/2020 96825 ECG 12-Lead Completed 08/10/2020 91003 Anticoagulant MGMT F or Patient Taking Warfarin, Inc Review & Intr Completed 07/12/2020 20513 Anticoagulant MGMT F or Patient Taking Warfarin, [...] pulmonary em bolism SUSU Vaca 12/28/2020 Z79.01 offset second press operator (current) use of antic omergulanSUSU Ball 12/28/2020 I48.0 Paroxysmal atrial fibrillation SUSU Bravo 12/01/2020 Z86.711 Personal history of pulmonary em bolism Alicia Ascencio PA-C 12/01/2020 Z79.01 shelter (current) use of antic oagulanbrendan Ascencio PA-C 11/03/2020 Z86.711 Personal history of pulmonary em bolism SUSU Vaca 11/03/2020 Z79.01 shelter (current) use of antic omergulanSUSU Ball 10/06/2020 Z79.01 shelter (current) use of antic omergulants Alicia Ascencio PA-C 09/06/2020 Z86.711 Personal history of pulmonary em bolism Alicia Ascencio PA-C 08/11/2020 I50.32 Chronic diastolic (congestive) h eart failure CLEOPATRA BolesC 08/11/2020 I11.0 Hypertensive heart disease with heart failure CLEOPATRA BolesC 08/11/2020 I27.29 Other secondary pulmonary hypert ension CLEOPATRA BolesC 08/11/2020 Z86.711 Personal history of pulmonary em bolism CLEOPATRA BolesC 08/11/2020 E78.2 Mixed hyperlipidemia Alicia Suarez CLEOPATRA MonahanC 08/11/2020 Z71.3 Dietary counseling and surveilla CLEOPATRA VacaC 08/10/2020 Z86.711 Personal history of pulmonary em jessi CLEOPATRA BolesC 08/10/2020 Z79.01 shelter (current) use of antic oagulants Alicia Ascencio PA-C 07/12/2020 Z86.711 Personal history of pulmonary em annieism CLEOPATRA BolesC 07/12/2020 Z79.01 shelter (current) use of antic oagulants Alicia Ascencio [...]
--- OUTSIDE RECORDS SUMMARY | 2021-01-21 11:05 | CCD | Continuity of Care Document ---
Author Author Jorge Luis POZO PA-C Organization Unknown Address [address] [place] [address], [facility] [place] [address] Phone [phone] Care Team Providers Care Conservation Policy Analyst Name Role Phone Lilliana Tran MD AUTM [phone] Christen Dailey DO AUTM [phone] Dolores Liriano MD AUTM [phone] Luiza Dai MS. PARTS COUNTER SALES PERSON AUTM [phone] Misael Kinsey MD AUTM [phone] Noah Fajardo MD AUTM [phone] Michael Cantrell MD AUTM [phone] Problems Active Problems Provider Date Chronic diastolic [...] SIG Qnty Indications Ordering Provide r Date Doxazosin Mesylate 2mg Tablets 1 by mouth every day at bedtime Unknown 01/17/2021 Clonazepam 1mg Tablets 1 tablet by mouth 4 times a day as needed Unknown 01/17/2021 Jardiance 10mg Tablets 1 by mouth every morning I50.32 Noah Fajardo MD 021 Bystolic 5mg Tablets 1 by mouth every day Unknown 02/09/2020 Januvia 100mg Tablets 1 by mouth every day Unknown 08/15/2018 Ferrous Gluconate 324(38Fe) mg Tab lets 1 by mouth once a day Noah Fajardo MD Virt-Phos 250 Neutral [phone] Tablets 1 daily Noah Fajardo MD Super [...] Result H/L Range Note Prothrombin Time/Inr 01/18/2021 [facility] enter [phone] Prothrombin Time 45.5 seconds High 12.7-14.5 Inr 4.86 Normal 1 Prothrombin Time/Inr 12/28/2020 [facility] enter [phone] Prothrombin Time 37.6 seconds High 12.7-14.5 Inr 3.79 Normal 2 Prothrombin Time/Inr 11/29/2020 [facility] enter [phone] Prothrombin Time 30.5 seconds High 12.7-14.5 Inr 2.87 Normal 3 Prothrombin Time/Inr 11/02/2020 [facility] enter [phone] Prothrombin Time 30.1 seconds High 12.7-14.5 Inr 2.83 Normal 4 Prothrombin Time/Inr 10/05/2020 [facility] enter [phone] Prothrombin Time 31.4 seconds High 12.7-14.5 Inr [...] 2.5 Albumin 3.9 3.2-5.2 Prothrombin Time/Inr 09/06/2020 [facility] enter [phone] Prothrombin Time 28.8 seconds High 12.5-14.3 Inr 2.64 Normal 6 Prothrombin Time/Inr 08/09/2020 [facility] enter [phone] Prothrombin Time 25.7 seconds High 12.5-14.3 Inr [...] INFARCTION 2.5-3.5 Procedures Date Code Description Status 01/18/2021 40185 Anticoagulant MGMT F or Patient Taking Warfarin, Inc Review & Intr Completed 12/28/2020 46003 Anticoagulant MGMT F or Patient Taking Warfarin, Inc Review & Intr Completed 12/01/2020 59572 Anticoagulant MGMT F or Patient Taking Warfarin, Inc Review & Intr Completed 11/03/2020 67054 Anticoagulant MGMT F or Patient Taking Warfarin, Inc Review & Intr Completed 10/06/2020 22512 Anticoagulant MGMT F or Patient Taking Warfarin, Inc Review & Intr Completed 09/06/2020 23962 Anticoagulant MGMT F or Patient Taking Warfarin, Inc Review & Intr Completed 08/11/2020 76405 Office/Outpatient Established Mo d MDM 30-39 Min Completed 08/11/2020 34514 ECG 12-Lead Completed 08/10/2020 05205 Anticoagulant MGMT F or Patient Taking Warfarin, [...] surve illance Assessments Date Code Description Provider 01/18/2021 I48.0 Paroxysmal atrial fibrillation Rekha Pozo PA-C 01/18/2021 Z79.01 senior care (current) use of antic omergulanbrendan Pozo PA-C 12/28/2020 Z86.711 Personal history of pulmonary em bolism SUSU Vaca 12/28/2020 Z79.01 senior care (current) use of antic omergulanSUSU Ball 12/28/2020 I48.0 Paroxysmal atrial fibrillation SUSU Bravo 12/01/2020 Z86.711 Personal history of pulmonary em bolism Alicia Pozo PA-C 12/01/2020 Z79.01 senior care (current) use of antic cali Pozo PA-C 11/03/2020 Z86.711 Personal history of pulmonary em bolism SUSU Vaca 11/03/2020 Z79.01 senior care (current) use of antic oagulants SUSU Vaca 10/06/2020 Z79.01 senior care (current) use of antic oagulants CLEOPATRA BolesC 09/06/2020 Z86.711 Personal history of pulmonary em annieism CLEOPATRA BolesC 08/11/2020 I50.32 Chronic diastolic (congestive) h eart failure CLEOPATRA BolesC 08/11/2020 I11.0 Hypertensive heart disease with heart failure CLEOPATRA BolesC 08/11/2020 I27.29 Other secondary pulmonary hypert ension CLEOPATRA BolesC 08/11/2020 Z86.711 Personal history of pulmonary em CLEOPATRA RodriguezC 08/11/2020 E78.2 Mixed hyperlipidemia CLEOPATRA ZamoraC 08/11/2020 Z71.3 Dietary counseling and surveilla CLEOPATRA VacaC 08/10/2020 Z86.711 Personal history of pulmonary em annieism CLEOPATRA BolesC 08/10/2020 Z79.01 senior care (current) use of antic oagulants Alicia Pozo [...]
--- OUTSIDE RECORDS SUMMARY | 2021-01-21 11:05 | CCD | Continuity of Care Document ---
Author Author Jorge Luis POZO PA-C Organization Unknown Address [address] [place] [address], [facility] [place] [address] Phone [phone] Care Team Providers Care Biology Lecturer Name Role Phone Lilliana Tran MD AUTM [phone] Christen Dailey DO AUTM [phone] Dolores Liriano MD AUTM [phone] Luiza Dai MS. FRAME AND SCRAP CRUSHER AUTM [phone] Misael Kinsey MD AUTM [phone] Noah Fajardo MD AUTM [phone] Michael Cantrell MD AUTM [phone] Problems Active Problems Provider Date Chronic diastolic [...] day Noah Fajardo MD [facility] 250 Neutral [phone] Tablets 1 daily Noah Fajardo MD Super [...] Result H/L Range Note Prothrombin Time/Inr 11/29/2020 [facility] enter [phone] Prothrombin Time 30.5 seconds High 12.7-14.5 Inr 2.87 Normal 1 Prothrombin Time/Inr 11/02/2020 [facility] enter [phone] Prothrombin Time 30.1 seconds High 12.7-14.5 Inr 2.83 Normal 2 Prothrombin Time/Inr 10/05/2020 [facility] enter [phone] Prothrombin Time 31.4 seconds High 12.7-14.5 Inr [...] 2.5 Albumin 3.9 3.2-5.2 Prothrombin Time/Inr 09/06/2020 [facility] enter [phone] Prothrombin Time 28.8 seconds High 12.5-14.3 Inr 2.64 Normal 4 Prothrombin Time/Inr 08/09/2020 [facility] enter [phone] Prothrombin Time 25.7 seconds High 12.5-14.3 Inr 2.29 Normal 5 Prothrombin Time/Inr 07/12/2020 [facility] enter [phone] Prothrombin Time 25.1 seconds High 12.5-14.3 Inr 2.22 Normal 6 Prothrombin Time/Inr 06/14/2020 [facility] enter [phone] Prothrombin Time 30.2 seconds High 12.5-14.3 Inr 2.81 Normal 7 1 THERAPUTIC HUMAN INR VALUES [...] 2.5-3.5 Procedures Date Code Description Status 12/01/2020 45422 Anticoagulant MGMT F or Patient Taking Warfarin, Inc Review & Intr Completed 11/03/2020 31642 Anticoagulant MGMT F or Patient Taking Warfarin, Inc Review & Intr Completed 10/06/2020 56572 Anticoagulant MGMT F or Patient Taking Warfarin, Inc Review & Intr Completed 09/06/2020 76292 Anticoagulant MGMT F or Patient Taking Warfarin, Inc Review & Intr Completed 08/11/2020 19968 Office/Outpatient Established Mo d MDM 30-39 Min Completed 08/11/2020 54701 ECG 12-Lead Completed 08/10/2020 91856 Anticoagulant MGMT F or Patient Taking Warfarin, Inc Review & Intr Completed 07/12/2020 72921 Anticoagulant MGMT F or Patient Taking Warfarin, Inc Review & Intr Completed 06/14/2020 65553 Anticoagulant MGMT F or Patient Taking Warfarin, [...] pulmonary em bolism SUSU [place] 11/03/2020 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 S[facility]U [place] 10/06/2020 Z79.01 [facility] (current) use of antic oagulants Alicia Pozo PA-C 09/06/2020 Z86.711 Personal history of pulmonary em bolism Alicia Pozo PA-C 08/11/2020 I50.32 Chronic diastolic (congestive) h eart failure Alicia Pozo PA-C 08/11/2020 I11.0 Hypertensive heart disease with heart failure Alicia Pozo PA-C 08/11/2020 I27.29 Other secondary pulmonary hypert ension Alicia Pozo PA-C 08/11/2020 Z86.711 Personal history of pulmonary em bolism Alicia Pozo PA-C 08/11/2020 E78.2 Mixed hyperlipidemia Alicia matta PA-C 08/11/2020 Z71.3 Dietary counseling and surveilla clarice Pozo PA-C 08/10/2020 Z86.711 Personal history of pulmonary em annieism Alicia Pozo PA-C 08/10/2020 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
--- OUTSIDE RECORDS SUMMARY | 2021-01-21 11:05 | CCD | Continuity of Care Document ---
Author Author Jorge Luis LOO PA Organization Unknown Address [address] [place] [address] [place] [address] Phone [phone] Care Team Providers Care Wind Science And Planning Name Role Phone Lilliana Tran MD AUTM [phone] Christen Dailey DO AUTM [phone] Dolores Liriano MD AUTM [phone] Luiza Dai MS. INTERNATIONAL ACCOUNT MANAGER AUTM [phone] Misael Kinsey MD AUTM [phone] Noah Fajardo MD AUTM [phone] Michael Cantrell MD AUTM [phone] Problems Active Problems Provider Date Chronic diastolic heart failure Alicia Ascencio, PA-C Onset: 07/04/2011 Benign hypertensive heart disease with congestive card iac failure Alicia Ascencio, PA-C Onset: 07/04/2011 Disorder of pericardium Alicia Ascencio, PA-C Onset: 07/04/19 12 H/O: pulmonary embolus Alicia Ascencio, PA-C Onset: 5 Chronic pulmonary heart disease Aliciaradha Ascencio, PA-C Onset: 02/04/2015 Pure hypercholesterolemia Aliciaradha [...] day Noah Fajardo MD [facility] 250 Neutral [phone] Tablets 1 daily Noah Fajardo MD Super B-Complex Capsules 1 by mouth every day Unknown 08/14/2017 Repaglinide 1mg Tablets 1 by mouth 3 times daily with meals Dolores Liriano MD 08/23/2016 Calcitriol 0.25mcg Capsules 1 by mouth every Mon-Fri only Doloers Liriano MD 08/02/2014 Fish Oil Maximum Strength [...] Result H/L Range Note Prothrombin Time/Inr 11/29/2020 [facility] enter [phone] Prothrombin Time 30.5 seconds High 12.7-14.5 Inr 2.87 Normal 1 Prothrombin Time/Inr 11/02/2020 [facility] enter [phone] Prothrombin Time 30.1 seconds High 12.7-14.5 Inr 2.83 Normal 2 Prothrombin Time/Inr 10/05/2020 [facility] enter [phone] Prothrombin Time 31.4 seconds High 12.7-14.5 Inr [...] 2.5 Albumin 3.9 3.2-5.2 Prothrombin Time/Inr 09/06/2020 [facility] enter [phone] Prothrombin Time 28.8 seconds High 12.5-14.3 Inr 2.64 Normal 4 Prothrombin Time/Inr 08/09/2020 [facility] enter [phone] Prothrombin Time 25.7 seconds High 12.5-14.3 Inr 2.29 Normal 5 Prothrombin Time/Inr 07/12/2020 [facility] enter [phone] Prothrombin Time 25.1 seconds High 12.5-14.3 Inr 2.22 Normal 6 Prothrombin Time/Inr 06/14/2020 [facility] enter [phone] Prothrombin Time 30.2 seconds High 12.5-14.3 Inr [...] 2.5-3.5 Procedures Date Code Description Status 11/03/2020 98814 Anticoagulant MGMT F or Patient Taking Warfarin, Inc Review & Intr Completed 10/06/2020 61175 Anticoagulant MGMT F or Patient Taking Warfarin, Inc Review & Intr Completed 09/06/2020 50991 Anticoagulant MGMT F or Patient Taking Warfarin, Inc Review & Intr Completed 08/11/2020 96511 Office/Outpatient Established Mo d MDM 30-39 Min Completed 08/11/2020 90134 ECG 12-Lead Completed 08/10/2020 78251 Anticoagulant MGMT F or Patient Taking Warfarin, Inc Review & Intr Completed 07/12/2020 05046 Anticoagulant MGMT F or Patient Taking Warfarin, Inc Review & Intr Completed 06/14/2020 77200 Anticoagulant MGMT F or Patient Taking Warfarin, [...] pulmonary em bolism S[facility]U [place] 11/03/2020 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 [facility]U [place] 10/06/2020 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 Alicia Ascencio PA-C 09/06/2020 Z86.711 Personal history of pulmonary em bolism Alicia Ascencio PA-C 08/11/2020 I50.32 Chronic diastolic (congestive) h eart failure [facility] 08/11/2020 I11.0 Hypertensive heart disease with heart failure [facility] 08/11/2020 I27.29 Other secondary pulmonary hypert ension Alicia Ascencio PA-C 08/11/2020 Z86.711 Personal history of pulmonary em bolism [facility]AT[facility]oles[facility] 08/11/2020 E78.2 Mixed hyperlipidemia CLEOPATRA ZamoraC 08/11/2020 Z71.3 Dietary counseling and surveilla nce CLEOPATRA BolesC 08/10/2020 Z86.711 Personal history of pulmonary em annieism Alicia Ascencio PA-C 08/10/2020 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
--- OUTSIDE RECORDS SUMMARY | 2021-01-21 11:06 | CCD ---
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 Role Phone Itaenow, Katie Vargas PA Unavailable Unavailable Symenow, Katie Vargas PA Unavailable Unavailable Symenow, Katie Vargas PA Unavailable Unavailable Symenow, Katie Vargas PA Unavailable Unavailable Symenow, Katie Vargas PA Unavailable Unavailable Symenow, Katie Vargas PA Unavailable Unavailable Symenow, Katie Vargas PA Unavailable Unavailable Symenow, Katie Vargas PA Unavailable Unavailable Symenow, Katie Vargas PA Unavailable Unavailable Symenow, Katie Vargas PA Unavailable Unavailable Symenow, Katie Vargas PA Unavailable Unavailable Symenow, Katie Vargas PA Unavailable Unavailable Symenow, Katie Vargas PA Unavailable Unavailable Symenow, Katie Vargas PA Unavailable Unavailable Symenow, Katie Alicia PA Unavailable Unavailable Symenow, Katie Alicia PA Unavailable Unavailable Symenow, Katie Alicia PA Unavailable Unavailable Symenow, Katie Oneile PA Unavailable Unavailable Symenow, Katie Vargas PA Unavailable Unavailable Symenow, Katie Alicia PA Unavailable Unavailable Symenow, Katie Vargas PA Unavailable Unavailable Symenow, Katie Alicia PA Unavailable Unavailable Symenow, Katie Alicia PA Unavailable Unavailable Symenow, Katie Alicia PA Unavailable Unavailable Symenow, Katie Alicia PA Unavailable Unavailable Symenow, Katie Vargas PA Unavailable Unavailable Symenow, Katie Alicia PA Unavailable Unavailable Symenow, Katie Vargas PA Unavailable Unavailable Symenow, Katie Vargas PA Unavailable Unavailable Symenow, Katie Oneile PA Unavailable Unavailable Symenow, Katie Oneile PA Unavailable Unavailable Symenow, Katie Oneile PA Unavailable Unavailable Symenow, Katie Oneile PA Unavailable Unavailable Symenow, Katie Oneile PA Unavailable Unavailable Re-disclosure Warning The records that you are about to access may contain information from federally-assisted alcohol or drug abuse programs. If such information is present, then the following federally mandated warning applies: This information has been disclosed to you from records protected by federal confidentiality rules (42 CFR part 2). The federal rules prohibit you from making any further disclosure of this information unless further disclosure is expressly permitted by the written consent of the person to whom it pertains or as otherwise permitted by 42 CFR part 2. A general authorization for the release of medical or other information is NOT sufficient for this purpose. The Federal rules restrict any use of the information to criminally investigate or prosecute any alcohol or drug abuse patient.The records that you are about to access may contain highly sensitive health information, the redisclosure of which is protected by Article 27-F of the [facility] Public Health law. If you continue you may have access to information: Regarding HIV / AIDS; Provided by facilities licensed or operated by the [facility] Office of Mental Health; or Provided by the [facility] Office for People With Developmental Disabilities. If such information is present, then the following [facility] mandated warning applies: This information has been disclosed to you from confidential records which are protected by state law. State law prohibits you from making any further disclosure of this information without the specific written consent of the person to whom it pertains, or as otherwise permitted by law. Any unauthorized further disclosure in violation of state law may result in a fine or longterm sentence or both. A general authorization for the release of medical or other information is NOT sufficient authorization for further disc losure. Family History Family Member Name Family Member Gender Family Member Status Date o f Status Description Data Source(s) Unknown Male Problem [facility] ([facility]) Unknown Unknown Problem [facility] ([facility]) Unknown Unknown Problem [facility] Unknown Unknown Problem [facility] ([facility] Encounters Encounter Providers Location Date Indications Data Source(s ) Outpatient Attender: Alicia CRISTOBAL Main Office 08/11/2020 10:15:00 AM EDT [facility] ([facility]) Outpatient Attender: Alicia CRISTOBAL Main Office 02/10/2020 09:15:00 AM EST [facility] ([facility]) Immunizations Vaccine Date Status Description Data Source(s) COVID-19 VACCINE Moderna 12/17/2020 12:00:00 AM EDT completed [facility] Vaccine Series Complete: YESThis Data wa s Submitted to [facility]. COVID-19 VACCINE Moderna 05/17/2020 12:00:00 AM EDT completed [facility] Vaccine Series Complete: YESThis Data wa s Submitted to [facility]. COVID-19 VACCINE, MRNA-1273, LNP-S (MODERNA)/PF 05/17/2020 1 2:00:00 AM EDT completed [facility] COVID-19 VACCINE, MRNA-1273, LNP-S (MODERNA)/PF 04/22/2020 1 2:00:00 AM EST completed [facility] Medications Medication Brand Name Start Date Product Form Dose Route Admi nistrative Instructions Pharmacy Instructions Status Indications Reaction Description Data Source(s) Doxazosin 2 MG Oral Tablet Doxazosin Mesylate 01/17/2021 12:00:00 AM EST ORAL active [facility] ([facility] Clonazepam 1 MG Oral Tablet Clonazepam 01/17/2021 12:00:00 AM EST ORAL active [facility] ([facility]) 5 mg 01/10/2021 12:00:00 AM EST tablet 90 TAKE ONE TABLET BY MOUTH EVERY DAY TAKE ONE TABLET BY MOUTH EVERY DAY SOLD: 01/10/2021 [facility] 2 mg 12/22/2020 12:00:00 AM EDT tablet 90 TAKE ONE TABLET BY MOUTH EVERY DAY TAKE ONE TABLET BY MOUTH EVERY DAY SOLD: 12/22/2020 [facility] 1 mg 12/22/2020 12:00:00 AM EDT tablet 120 TAKE ONE TABLET BY MOUTH FOUR TIMES A DAY MAXIMUM DAILY DOSE = 4 TAKE ONE TABLET BY MOUTH FOUR TIMES A DA Y MAXIMUM DAILY DOSE = 4 SOLD: 12/22/2020 [facility] 100 mcg/0.5 mL 12/17/2020 12:00:00 AM EDT suspension 0 INJECT DIRECTED (THIRD DOSE) INJECT DIRECTED (THIRD DOSE) SOLD: 12/17/2020 [facility] 100 mg 12/16/2020 12:00:00 AM EDT tablet 45 TAKE 1/2 TABLET BY MOUTH EVERY MORNING TAKE 1/2 TABLET BY MOUTH EVERY MORNING SOLD: 12/17/2020 [facility] Calcitriol 0.73486 MG Oral Capsule 0.25 mcg CALCITRIOL 12/16/2020 12:00:00 AM EDT capsule 60 TAKE 1 CAPSULE BY MOUTH Sunday TAKE 1 CAPSULE BY MOUTH Sunday SOLD: 12/16/2020 [facility] 40 mg 12/16/2020 12:00:00 AM EDT tablet 90 TAKE ONE TABLET BY MOUTH EVERY DAY TAKE ONE TABLET BY MOUTH EVERY DAY SOLD: 12/16/2020 [facility] 80 mg 12/16/2020 12:00:00 AM EDT tablet 45 TAKE ONE-HALF TABLET BY MOUTH AT BEDTIME TAKE ONE-HALF TABLET BY MOUTH AT BEDTIME SOLD: 12/16/2020 [facility] 5 mg 12/14/2020 12:00:00 AM EDT tablet 180 TAKE 1-2 TABLETS BY MOUTH EVERY DAY DIRECTED TAKE 1-2 TABLETS BY MOUTH EVERY DAY DIRECTED SOLD: 12/14/2020 [facility] 500 mg 11/30/2020 12:00:00 AM EDT capsule 54 TAKE ONE CAPSULE BY MOUTH FOUR TIMES A DAY TAKE ONE CAPSULE BY MOUTH FOUR TIMES A DAY SOLD: 11/30/2020 [facility] 10 mg 11/23/2020 12:00:00 AM EDT tablet 90 TAKE ONE TABLET BY MOUTH EVERY DAY TAKE ONE TABLET BY MOUTH EVERY DAY SOLD: 11/23/2020 [facility] 1 mg 11/17/2020 12:00:00 AM EDT tablet 90 TAKE ONE TABLET BY MOUTH BEFORE EACH MEAL TAKE ONE TABLET BY MOUTH BEFORE EACH MEAL SOLD: 12/16/2020 [facility] 1 mg 11/17/2020 12:00:00 AM EDT tablet 90 TAKE ONE TABLET BY MOUTH BEFORE EACH MEAL TAKE ONE TABLET BY MOUTH BEFORE EACH MEAL SOLD: 12/18/2020 [facility] 324 mg (38 mg iron) 10/27/2020 12:00:00 AM EDT tablet 90 TAKE ONE TABLET BY MOUTH EVERY DAY TAKE ONE TABLET BY MOUTH EVERY DAY SOLD: 10/28/2020 [facility] 5 mg 10/15/2020 12:00:00 AM EDT tablet 90 TAKE ONE TABLET BY MOUTH EVERY DAY TAKE ONE TABLET BY MOUTH EVERY DAY SOLD: 10/18/2020 [facility] potassium phosphate 155 MG / Sodium Phos phate, Dibasic 852 MG / Sodium Phosphate, Monobasic 130 MG Oral Tablet 250 mg SOD PHOS DI, MONO/K PHOS MONO 09/01/2020 12:00:00 AM EDT tablet 90 TAKE ONE TABLE T BY MOUTH EVERY DAY TAKE ONE TABLET BY MOUTH EVERY DAY SOLD: 12/13/2020 [facility] potassium phosphate 155 MG / Sodium Phos phate, Dibasic 852 MG / Sodium Phosphate, Monobasic 130 MG Oral Tablet 250 mg SOD PHOS DI, MONO/K PHOS MONO 09/01/2020 12:00:00 AM EDT tablet 90 TAKE ONE TABLE T BY MOUTH EVERY DAY TAKE ONE TABLET BY MOUTH EVERY DAY SOLD: 09/02/2020 [facility] 5 mg 07/15/2020 12:00:00 AM EDT tablet 90 TAKE ONE TABLET BY MOUTH EVERY DAY TAKE ONE TABLET BY MOUTH EVERY DAY SOLD: 07/16/2020 [facility] 1 mg 07/10/2020 12:00:00 AM EDT tablet 90 TAKE ONE TABLET BY MOUTH EVERY DAY BEFORE EACH MEAL TAKE ONE TABLET BY MOUTH EVERY DAY BEFORE EACH MEAL SO LD: 09/13/2020 [facility] 1 mg 07/10/2020 12:00:00 AM EDT tablet 90 TAKE ONE TABLET BY MOUTH EVERY DAY BEFORE EACH MEAL TAKE ONE TABLET BY MOUTH EVERY DAY BEFORE EACH MEAL SO LD: 07/12/2020 [facility] 1 mg 07/10/2020 12:00:00 AM EDT tablet 90 TAKE ONE TABLET BY MOUTH EVERY DAY BEFORE EACH MEAL TAKE ONE TABLET BY MOUTH EVERY DAY BEFORE EACH MEAL SO LD: 08/17/2020 [facility] 1 mg 07/10/2020 12:00:00 AM EDT tablet 90 TAKE ONE TABLET BY MOUTH EVERY DAY BEFORE EACH MEAL TAKE ONE TABLET BY MOUTH EVERY DAY BEFORE EACH MEAL SO LD: 10/18/2020 [facility] 1 % 07/09/2020 12:00:00 AM EDT drops,suspension 10 INSTILL ONE DROP INTO THE LEFT EYE FOUR TIMES A DAY DIRECTED INSTILL ONE DROP INTO THE LEFT EYE FOUR TIMES A DAY DIRECTED SOLD: 07/09/2020 [facility] 5 mg/gram (0.5 %) 06/17/2020 12:00:00 AM EDT ointment 3 APPLY A SMALL AMOUNT INTO LEFT EYE AT BEDTIME DIRECTED APPLY A SMALL AMOUNT INTO LEFT EYE AT BEDTIME DIRECTED SOLD: 06/17/2020 [facility] 0.3 % 06/17/2020 12:00:00 AM EDT drops 5 INSTILL 1 DROP INTO THE LEFT EYE FOUR TIMES A DAY DIRECTED INSTILL 1 DROP INTO THE LEFT EYE FOUR TI MES A DAY DIRECTED SOLD: 06/17/2020 [facility] Polymyxin B 96951 UNT/ML / Trimethoprim 1 MG/ML Ophthalmic Solution 10,000 unit- 1 mg/mL POLYMYXIN B SULF/TRIMETHOPRIM 06/17/2020 12:00:00 AM EDT drops 1 0 INSTILL 1 DROP INTO THE LEFT EYE EVERY TWO HOURS. ALTERNATE WITH OFLOXACIN EVERY HOUR INSTILL 1 DROP INTO THE LEFT EYE EVERY T WO HOURS. ALTERNATE WITH OFLOXACIN EVERY HOUR SOLD: 06/17/2020 [facility] 10 mg 06/08/2020 12:00:00 AM EDT tablet 30 TAKE ONE TABLET BY MOUTH EVERY DAY TAKE ONE TABLET BY MOUTH EVERY DAY SOLD: 09/02/2020 [facility] 10 mg 06/08/2020 12:00:00 AM EDT tablet 30 TAKE ONE TABLET BY MOUTH EVERY DAY TAKE ONE TABLET BY MOUTH EVERY DAY SOLD: 07/05/2020 [facility] 10 mg 06/08/2020 12:00:00 AM EDT tablet 30 TAKE ONE TABLET BY MOUTH EVERY DAY TAKE ONE TABLET BY MOUTH EVERY DAY SOLD: 10/28/2020 [facility] 10 mg 06/08/2020 12:00:00 AM EDT tablet 30 TAKE ONE TABLET BY MOUTH EVERY DAY TAKE ONE TABLET BY MOUTH EVERY DAY SOLD: 09/24/2020 [facility] 10 mg 06/08/2020 12:00:00 AM EDT tablet 30 TAKE ONE TABLET BY MOUTH EVERY DAY TAKE ONE TABLET BY MOUTH EVERY DAY SOLD: 06/09/2020 [facility] 10 mg 06/08/2020 12:00:00 AM EDT tablet 30 TAKE ONE TABLET BY MOUTH EVERY DAY TAKE ONE TABLET BY MOUTH EVERY DAY SOLD: 08/03/2020 [facility] 324 mg (38 mg iron) 04/30/2020 12:00:00 AM EST tablet 90 TAKE ONE TABLET BY MOUTH EVERY DAY TAKE ONE TABLET BY MOUTH EVERY DAY SOLD: 05/02/2020 [facility] 324 mg (38 mg iron) 04/30/2020 12:00:00 AM EST tablet 90 TAKE ONE TABLET BY MOUTH EVERY DAY TAKE ONE TABLET BY MOUTH EVERY DAY SOLD: 08/03/2020 [facility] 5 mg 04/20/2020 12:00:00 AM EST tablet 30 TAKE ONE TABLET BY MOUTH EVERY DAY TAKE ONE TABLET BY MOUTH EVERY DAY SOLD: 04/20/2020 [facility] 5 mg 04/20/2020 12:00:00 AM EST tablet 30 TAKE ONE TABLET BY MOUTH EVERY DAY TAKE ONE TABLET BY MOUTH EVERY DAY SOLD: 06/15/2020 [facility] 5 mg 04/20/2020 12:00:00 AM EST tablet 30 TAKE ONE TABLET BY MOUTH EVERY DAY TAKE ONE TABLET BY MOUTH EVERY DAY SOLD: 05/18/2020 [facility] empagliflozin 10 MG Oral Tablet [Jardiance] Jardiance 04/14/2020 12:00:00 AM EST ORAL active [facility] ([facility] 10 mg 04/12/2020 12:00:00 AM EST tablet 30 TAKE ONE TABLET BY MOUTH EVERY DAY TAKE ONE TABLET BY MOUTH EVERY DAY SOLD: 04/12/2020 [facility] 10 mg 04/12/2020 12:00:00 AM EST tablet 30 TAKE ONE TABLET BY MOUTH EVERY DAY TAKE ONE TABLET BY MOUTH EVERY DAY SOLD: 05/06/2020 [facility] Bumetanide 1 MG Oral Tablet BUMETANIDE 04/06/2020 12:00:00 AM EST tabl et 90 TAKE ONE TABLET BY MOUTH EVERY DAY TAKE ONE TABLET BY MOUTH EVERY DAY SOLD: 04/08/2020 [facility] Calcitriol 0.57620 MG Oral Capsule 0.25 mcg CALCITRIOL 04/05/2020 12:00:00 AM EST capsule 60 TAKE 1 CAPSULE BY MOUTH THROUGH SUNDAY TAKE 1 CAPSULE BY MOUTH SUNDAY THROUGH SUNDAY SOLD: 09/24/2020 [facility] Calcitriol 0.21958 MG Oral Capsule 0.25 mcg CALCITRIOL 04/05/2020 12:00:00 AM EST capsule 60 TAKE 1 CAPSULE BY MOUTH Sunday TAKE 1 CAPSULE BY MOUTH Sunday SOLD: 04/06/2020 [facility] Calcitriol 0.19404 MG Oral Capsule 0.25 mcg CALCITRIOL 04/05/2020 12:00:00 AM EST capsule 60 TAKE 1 CAPSULE BY MOUTH Sunday TAKE 1 CAPSULE BY MOUTH Sunday SOLD: 06/15/2020 [facility] 100 mg 03/18/2020 12:00:00 AM EST tablet 45 TAKE ONE-HALF TABLET BY MOUTH EVERY DAY IN THE MORNING TAKE ONE-HALF TABLET BY MOUTH EVERY DAY IN THE MORNING SOLD: 06/15/2020 [facility] 100 mg 03/18/2020 12:00:00 AM EST tablet 45 TAKE ONE-HALF TABLET BY MOUTH EVERY DAY IN THE MORNING TAKE ONE-HALF TABLET BY MOUTH EVERY DAY IN THE MORNING SOLD: 09/24/2020 [facility] 100 mg 03/18/2020 12:00:00 AM EST tablet 45 TAKE ONE-HALF TABLET BY MOUTH EVERY DAY IN THE MORNING TAKE ONE-HALF TABLET BY MOUTH EVERY DAY IN THE MORNING SOLD: 03/19/2020 [facility] 2.5 mg 03/01/2020 12:00:00 AM EST tablet 90 TAKE ONE TABLET BY MOUTH EVERY DAY TAKE ONE TABLET BY MOUTH EVERY DAY SOLD: 03/02/2020 [facility] 250 mg 03/01/2020 12:00:00 AM EST tablet 90 TAKE ONE TABLET BY MOUTH EVERY DAY TAKE ONE TABLET BY MOUTH EVERY DAY SOLD: 06/09/2020 [facility] 250 mg 03/01/2020 12:00:00 AM EST tablet 90 TAKE ONE TABLET BY MOUTH EVERY DAY TAKE ONE TABLET BY MOUTH EVERY DAY SOLD: 03/02/2020 [facility] 1 mg 02/19/2020 12:00:00 AM EST tablet 90 TAKE 1 TABLET BY MOUTH BEFORE EACH MEAL TAKE 1 TABLET BY MOUTH BEFORE EACH MEAL SOLD: 02/19/2020 [facility] 1 mg 02/19/2020 12:00:00 AM EST tablet 90 TAKE 1 TABLET BY MOUTH BEFORE EACH MEAL TAKE 1 TABLET BY MOUTH BEFORE EACH MEAL SOLD: 04/17/2020 [facility] 1 mg 02/19/2020 12:00:00 AM EST tablet 90 TAKE 1 TABLET BY MOUTH BEFORE EACH MEAL TAKE 1 TABLET BY MOUTH BEFORE EACH MEAL SOLD: 05/18/2020 [facility] 1 mg 02/19/2020 12:00:00 AM EST tablet 90 TAKE 1 TABLET BY MOUTH BEFORE EACH MEAL TAKE 1 TABLET BY MOUTH BEFORE EACH MEAL SOLD: 03/19/2020 [facility] 5 mg 02/18/2020 12:00:00 AM EST tablet 60 TAKE ONE TABLET BY MOUTH EVERY DAY TAKE ONE TABLET BY MOUTH EVERY DAY SOLD: 02/18/2020 [facility] nebivolol 5 MG Oral Tablet [Bystolic] Bystolic 02/09/2020 12:00:00 AM EST ORAL active [facility] ([facility] 40 mg 02/01/2020 12:00:00 AM EST tablet 30 TAKE ONE TABLET BY MOUTH EVERY DAY TAKE ONE TABLET BY MOUTH EVERY DAY SOLD: 02/01/2020 [facility] 40 mg 02/01/2020 12:00:00 AM EST tablet 30 TAKE ONE TABLET BY MOUTH EVERY DAY TAKE ONE TABLET BY MOUTH EVERY DAY SOLD: 06/15/2020 [facility] 40 mg 02/01/2020 12:00:00 AM EST tablet 30 TAKE ONE TABLET BY MOUTH EVERY DAY TAKE ONE TABLET BY MOUTH EVERY DAY SOLD: 10/18/2020 [facility] 40 mg 02/01/2020 12:00:00 AM EST tablet 30 TAKE ONE TABLET BY MOUTH EVERY DAY TAKE ONE TABLET BY MOUTH EVERY DAY SOLD: 08/17/2020 [facility] 40 mg 02/01/2020 12:00:00 AM EST tablet 30 TAKE ONE TABLET BY MOUTH EVERY DAY TAKE ONE TABLET BY MOUTH EVERY DAY SOLD: 03/02/2020 [facility] 40 mg 02/01/2020 12:00:00 AM EST tablet 30 TAKE ONE TABLET BY MOUTH EVERY DAY TAKE ONE TABLET BY MOUTH EVERY DAY SOLD: 09/13/2020 [facility] 40 mg 02/01/2020 12:00:00 AM EST tablet 30 TAKE ONE TABLET BY MOUTH EVERY DAY TAKE ONE TABLET BY MOUTH EVERY DAY SOLD: 07/14/2020 [facility] 40 mg 02/01/2020 12:00:00 AM EST tablet 30 TAKE ONE TABLET BY MOUTH EVERY DAY TAKE ONE TABLET BY MOUTH EVERY DAY SOLD: 04/06/2020 [facility] 40 mg 02/01/2020 12:00:00 AM EST tablet 30 TAKE ONE TABLET BY MOUTH EVERY DAY TAKE ONE TABLET BY MOUTH EVERY DAY SOLD: 11/17/2020 [facility] 5 mg 01/26/2020 12:00:00 AM EST tablet 30 TAKE ONE TABLET BY MOUTH EVERY DAY TAKE ONE TABLET BY MOUTH EVERY DAY SOLD: 01/26/2020 [facility] 1 mg 01/12/2020 12:00:00 AM EST tablet 60 TAKE ONE TABLET BY MOUTH TWICE A DAY MAXIMUM DAILY DOSE = 2 TAKE ONE TABLET BY MOUTH TWICE A DAY MAX IMUM DAILY DOSE = 2 SOLD: 01/12/2020 [facility] 80 mg 12/23/2019 12:00:00 AM EDT tablet 45 TAKE ONE-HALF TABLET BY MOUTH EVERY NIGHT AT BEDTIME TAKE ONE-HALF TABLET BY MOUTH EVERY NIGHT AT BEDTIME SOLD: 09/24/2020 [facility] atorvastatin 80 MG Oral Tablet ATORVASTATIN CALCIUM 12/23/2019 1 2:00:00 AM EDT tablet 45 TAKE ONE-HALF TABLET BY MOUTH EV NATHANIEL NIGHT AT BEDTIME TAKE ONE-HALF TABLET BY MOUTH EVERY NIGHT AT BEDTIME SOLD: 06/15/2020 [facility] atorvastatin 80 MG Oral Tablet ATORVASTATIN CALCIUM 12/23/2019 1 2:00:00 AM EDT tablet 45 TAKE ONE-HALF TABLET BY MOUTH EV NATHANIEL NIGHT AT BEDTIME TAKE ONE-HALF TABLET BY MOUTH EVERY NIGHT AT BEDTIME SOLD: 12/25/2019 [facility] atorvastatin 80 MG Oral Tablet ATORVASTATIN CALCIUM 12/23/2019 1 2:00:00 AM EDT tablet 45 TAKE ONE-HALF TABLET BY MOUTH EV NATHANIEL NIGHT AT BEDTIME TAKE ONE-HALF TABLET BY MOUTH EVERY NIGHT AT BEDTIME SOLD: 03/24/2020 [facility] 324 mg (38 mg iron) 10/28/2019 12:00:00 AM EDT tablet 90 TAKE ONE TABLET BY MOUTH EVERY DAY TAKE ONE TABLET BY MOUTH EVERY DAY SOLD: 01/26/2020 [facility] 0.25 mcg 10/15/2019 12:00:00 AM EDT capsule 60 TAKE 1 CAPSULE SUNDAY THRU SUNDAY TAKE 1 CAPSULE SUNDAY THRU SUNDAY SOLD: 01/04/2020 [facility] 1 mg 10/09/2019 12:00:00 AM EDT tablet 90 TAKE 1 TABLET BY MOUTH BEFORE EACH MEAL TAKE 1 TABLET BY MOUTH BEFORE EACH MEAL SOLD: 12/11/2019 [facility] 1 mg 10/09/2019 12:00:00 AM EDT tablet 90 TAKE 1 TABLET BY MOUTH BEFORE EACH MEAL TAKE 1 TABLET BY MOUTH BEFORE EACH MEAL SOLD: 01/15/2020 [facility] Bumetanide 1 MG Oral Tablet BUMETANIDE 10/02/2019 12:00:00 AM EDT tabl et 90 TAKE ONE TABLET BY MOUTH EVERY DAY TAKE ONE TABLET BY MOUTH EVERY DAY SOLD: 01/04/2020 [facility] 250 mg 09/02/2019 12:00:00 AM EDT tablet 90 TAKE ONE TABLET BY MOUTH EVERY DAY TAKE ONE TABLET BY MOUTH EVERY DAY SOLD: 12/03/2019 [facility] 2.5 mg 06/11/2019 12:00:00 AM EDT tablet 90 TAKE ONE TABLET BY MOUTH EVERY DAY TAKE ONE TABLET BY MOUTH EVERY DAY SOLD: 12/11/2019 [facility] 100 mg 06/11/2019 12:00:00 AM EDT tablet 45 TAKE ONE-HALF TABLET BY MOUTH EVERY MORNING TAKE ONE-HALF TABLET BY MOUTH EVERY MORNING SOLD: 12/11/2019 [facility] Potassium Chloride 10 MEQ Extended Release Oral Tablet POTAS SIUM CHLORIDE 05/29/2019 12:00:00 AM EDT tablet extended release 90 TAKE ONE TABLET BY MOUTH EVERY DAY TAKE ONE TABLET BY MOUTH EVERY DAY SOLD: 02/18/2020 [facility] 5 mg 05/01/2019 12:00:00 AM EST tablet 180 TAKE 1-2 TABLETS BY MOUTH EVERY DAY DIRECTED TAKE 1-2 TABLETS BY MOUTH EVERY DAY DIRECTED SOLD: 02/18/2020 [facility] Insurance Providers Payer name Policy type / Coverage type Policy ID Covered republican ID Covered republican's relationship to zaman Policy Zaman Plan Information [facility] [id number] SP [id number] [facility]S [id number] SP [id number] [employer] MEDICAL CLAIMS [id number] SP [id number] Medicare (Part B) Medicare Primary [id number] Self [id number] Medicare (Part B) Medicare Primary [id number] Self 1 [id number] A Medicare (Part B) Medicare Primary [id number] Self [id number] Medicare (Part B) Medicare Primary [id number] Self Medicare (Part B) Medicare Primary [id number] Self 1 [id number] Medicare (Part B) Medicare Primary [id number] Self [id number] Medicare (Part B) Medicare Primary [id number] Self [id number] Medicare (Part B) Medicare Primary [id number] Self 1 [id number] Medicare Medicare Primary [id number] Self Medicare (Part B) Medicare Primary [id number] Self [id number] MEDICARE [id number] SP [id number] A Medicare (Part B) Medicare Primary [id number] Self [id number] LIF[employer]IME BENEFIT SOLUTIONS [id number] SP [id number] LIFETIME BENEFIT SOLUTIONS [id number] SP [id number] LIFETIME BENEFIT SOLUTIONS [id number] SP [id number] BS [place] Medigap Part B [id number] Self [id number] BS [place] Medigap Part B [id number] Self [id number] MEDICARE [id number] SP [id number] A MEDICARE [id number] SP [id number] A MEDICARE [id number] SP [id number] BCBS [place] PPO 302/307 [id number] SP [id number] [place] PPO 302/307 [id number] SP [id number] [place] Primary [id number] Self [id number] [place] Primary [id number] Self [id number] BCBS [place] Ppo U/W Medigap Part B [id number] Self V [id number] BCBS [place] PPO 302/307 [id number] SP [id number] BCBS [employer] Ppo U/W Medigap Part B [id number] Self V [id number] BCBS [employer] U/W Medigap Part B [id number] Self V [id number] BCBS [place] Ppo U/W Medigap Part B [id number] Self V [id number] BCBS [employer] U/W Medigap Part B [id number] Self V [id number] MEDICARE C [id number] S [id number] A Lifetime Benefit Solut Medigap Part B [id number] Self BCBS [place] Ppo U/W Medigap Part B [id number] Self BCBS [place] U/W Medigap Part B [id number] Self V [id number] BCBS [employer] U/W Medigap Part B [id number] Self [id number] Lifetime Benefit Solut Medigap Part B [id number] Self [id number] BC/BS [place] Medigap Part B [id number] Self BCBS [employer] U/W Medigap Part B [id number] Self [id number] [employer]/Lifetime [employer] Solut Medigap Part B [id number] Self Medicare Natl Gov't Servi Medicare Primary [id number] Self [id number] BCBS/[employer] Medigap Part B [id number] Self [id number] Local [address] Medigap Part B [id number] Self [id number] Lifetime Benefit Solution Medigap Part B [id number] Self [id number] Local 9[employer] Medigap Part B [id number] Self [id number] [employer] S [id number] S [id number] [facility] BS B [id number] S [id number] [employer] Ins Medigap Part B [id number] Self [id number] MEDICARE C [id number] S [id number] [place] Medicare Primary [id number] Self [id number] BC[employer] U/W Medigap Part B [id number] Self V [id number] [employer] [facility] Medigap Part B [id number] Self [id number] Problems, Conditions, and Diagnoses No Information Surgeries/Procedures Procedure Description Date Indications Data Source(s) Anticoagulant MGMT For Patient Taking Warfarin, Inc Review & Intr 01/18/2021 12:00:00 AM EST [facility] ([facility]) Anticoagulant MGMT For Patient Taking Warfarin, Inc Review & Intr 12/28/2020 12:00:00 AM EDT [facility] ([facility] [place]) Anticoagulant MGMT For Patient Taking Warfarin, Inc Review & Intr 12/01/2020 12:00:00 AM EDT [facility] ([facility]) Anticoagulant MGMT For Patient Taking Warfarin, Inc Review & Intr 11/03/2020 12:00:00 AM EDT [facility] ([facility] [place]) Anticoagulant MGMT For Patient Taking Warfarin, Inc Review & Intr 10/06/2020 12:00:00 AM EDT [facility] ([facility]) Anticoagulant MGMT For Patient Taking Warfarin, Inc Review & Intr 09/06/2020 12:00:00 AM EDT [facility] ([facility]) ECG ROUTINE ECG W/LEAST 12 LDS W/I&R 08/11/2020 12:00: 00 AM EDT [facility] ([facility]) OFFICE OUTPATIENT VISIT 25 MINUTES 08/11/2020 12:00:00 AM EDT [facility] ([facility]) Anticoagulant MGMT For Patient Taking Warfarin, Inc Review & Intr 08/10/2020 12:00:00 AM EDT [facility] ([facility]) Anticoagulant MGMT For Patient Taking Warfarin, Inc Review & Intr 07/12/2020 12:00:00 AM EDT [facility] ([facility]) Anticoagulant MGMT For Patient Taking Warfarin, Inc Review & Intr 06/14/2020 12:00:00 AM EDT [facility] ([facility]) Anticoagulant MGMT For Patient Taking Warfarin, Inc Review & Intr 05/31/2020 12:00:00 AM EDT [facility] ([facility]) Anticoagulant MGMT For Patient Taking Warfarin, Inc Review & Intr 04/30/2020 12:00:00 AM EST [facility] ([facility]) Anticoagulant MGMT For Patient Taking Warfarin, Inc Review & Intr 04/01/2020 12:00:00 AM EST [facility] ([facility]) Anticoagulant MGMT For Patient Taking Warfarin, Inc Review & Intr 03/18/2020 12:00:00 AM EST [facility] ([facility]) Anticoagulant MGMT For Patient Taking Warfarin, Inc Review & Intr 03/05/2020 12:00:00 AM EST [facility] ([facility]) ECG ROUTINE ECG W/LEAST 12 LDS W/I&R 02/10/2020 12:00: 00 AM EST [facility] ([facility]) Anticoagulant MGMT For Patient Taking Warfarin, Inc Review & Intr 02/05/2020 12:00:00 AM EST [facility] ([facility]) Anticoagulant MGMT For Patient Taking Warfarin, Inc Review & Intr 01/08/2020 12:00:00 AM EST [facility] ([facility]) Anticoagulant MGMT For Patient Taking Warfarin, Inc Review & Intr 12/09/2019 12:00:00 AM EDT [facility] ([facility]) Results ID Date Data Source [id number] 01/18/2021 08:39:00 AM EST [facility] ([facility] [place]) Name Value Range Interpretation Code Description Data Sharonda rce(s) Supporting Document(s) Prothrombin Time 45.5 s 12.7-14.5 [facility] ([facility] [place]) Inr 4.86 [facility] [place] [place] THERAPUTIC HUMAN INR VALUES INDICATIONS NORMAL RANGES PROPHYLAXIS/TREATMENT OF: VENOUS THROMBOSIS 2.0-3.0 PULMONARY EMBOLISM 2.0-3.0 PREVENTION OF SYSTEMIC EMBOLISM FROM: TISSUE HEART VALVES 2.0-3.0 ACUTE MYOCARDIAL INFARCTION 2.0-3.0 VALVULAR HEART DISEASE 2.0-3.0 ATRIAL FIBRILLATION 2.0-3.0 MECHANICAL VALVES(HIGH RISK) 2.5-3.5 RECURRENT MYOCARDIAL INFARCTION 2.5-3.5 ID Date Data Source [id number] 12/28/2020 10:14:00 AM EDT [facility] ([facility] [place]) Name Value Range Interpretation Code Description Data Sharonda rce(s) Supporting Document(s) Prothrombin Time 37.6 s 12.7-14.5 [facility] ([facility] [place]) Inr 3.79 [facility] ([facility] [place] THERAPUTIC HUMAN INR VALUES INDICATIONS NORMAL RANGES PROPHYLAXIS/TREATMENT OF: VENOUS THROMBOSIS 2.0-3.0 PULMONARY EMBOLISM 2.0-3.0 PREVENTION OF SYSTEMIC EMBOLISM FROM: TISSUE HEART VALVES 2.0-3.0 ACUTE MYOCARDIAL INFARCTION 2.0-3.0 VALVULAR HEART DISEASE 2.0-3.0 ATRIAL FIBRILLATION 2.0-3.0 MECHANICAL VALVES(HIGH RISK) 2.5-3.5 RECURRENT MYOCARDIAL INFARCTION 2.5-3.5 ID Date Data Source [id number] 11/29/2020 03:06:00 PM EDT [facility] ([facility] [place]) Name Value Range Interpretation Code Description Data Sharonda rce(s) Supporting Document(s) Prothrombin Time 30.5 s 12.7-14.5 [facility] ([facility] [place]) Inr 2.87 [facility] ([facility] [place] THERAPUTIC HUMAN INR VALUES INDICATIONS NORMAL RANGES PROPHYLAXIS/TREATMENT OF: VENOUS THROMBOSIS 2.0-3.0 PULMONARY EMBOLISM 2.0-3.0 PREVENTION OF SYSTEMIC EMBOLISM FROM: TISSUE HEART VALVES 2.0-3.0 ACUTE MYOCARDIAL INFARCTION 2.0-3.0 VALVULAR HEART DISEASE 2.0-3.0 ATRIAL FIBRILLATION 2.0-3.0 MECHANICAL VALVES(HIGH RISK) 2.5-3.5 RECURRENT MYOCARDIAL INFARCTION 2.5-3.5 ID Date Data Source [id number] 11/02/2020 11:52:00 AM EDT MED[facility] ([facility] [place]) Name Value Range Interpretation Code Description Data Sharonda rce(s) Supporting Document(s) Inr 2.83 [facility] ([facility] [place] THERAPUTIC HUMAN INR VALUES INDICATIONS NORMAL RANGES PROPHYLAXIS/TREATMENT OF: VENOUS THROMBOSIS 2.0-3.0 PULMONARY EMBOLISM 2.0-3.0 PREVENTION OF SYSTEMIC EMBOLISM FROM: TISSUE HEART VALVES 2.0-3.0 ACUTE MYOCARDIAL INFARCTION 2.0-3.0 VALVULAR HEART DISEASE 2.0-3.0 ATRIAL FIBRILLATION 2.0-3.0 MECHANICAL VALVES(HIGH RISK) 2.5-3.5 RECURRENT MYOCARDIAL INFARCTION 2.5-3.5 Prothrombin Time 30.1 s 12.7-14.5 [facility] ([facility] [place]) ID Date Data Source [id number] 10/05/2020 08:14:00 AM EDT [facility] ([facility] [place]) Name Value Range Interpretation Code Description Data Sharonda rce(s) Supporting Document(s) Prothrombin Time 31.4 s 12.7-14.5 [facility] ([facility] [place]) Inr 3.00 [facility] ([facility] [place] THERAPUTIC HUMAN INR VALUES INDICATIONS NORMAL RANGES PROPHYLAXIS/TREATMENT OF: VENOUS THROMBOSIS 2.0-3.0 PULMONARY EMBOLISM 2.0-3.0 PREVENTION OF SYSTEMIC EMBOLISM FROM: TISSUE HEART VALVES 2.0-3.0 ACUTE MYOCARDIAL INFARCTION 2.0-3.0 VALVULAR HEART DISEASE 2.0-3.0 ATRIAL FIBRILLATION 2.0-3.0 MECHANICAL VALVES(HIGH RISK) 2.5-3.5 RECURRENT MYOCARDIAL INFARCTION 2.5-3.5 ID Date Data Source [id number] 09/13/2020 12:39:00 PM EDT [facility] ([facility] [place]) Name Value Range Interpretation Code Description Data Sharonda rce(s) Supporting Document(s) Blood Urea Nitrogen 25.8 7-18 [facility] ([facility]) Glucose 226 70-106 [facility] ([facility]) Glomerular filtration rate/1.73 sq M.pre dicted [Volume Rate/Area] in Serum or Plasma by Creatinine-based formula (MDRD) 34 [facility] ([facility]) Sodium 134.3 135-145 [facility] ([facility]) Creatinine 1.9 0.55-1.3 [facility] ([facility]) Potassium 4.13 3.5-5.5 [facility] ([facility]) Chloride 102.6 94-110 [facility] ([facility]) Calcium 9.5 8.5-10.1 [facility] ([facility]) Phosphorus 2.5 [facility] ([facility]) Carbon Dioxide 28.2 21-32 [facility] ([facility]) Albumin 3.9 3.2-5.2 [facility] ([facility]) ID Date Data Source [id number] 09/13/2020 12:39:00 PM EDT [facility] ([facility]) Name Value Range Interpretation Code Description Data Sharonda rce(s) Supporting Document(s) White Blood Count 12.4 5.0-10.0 [facility] ([facility]) Red Blood Count 4.06 4.70-6.10 [facility] ([facility]) Hematocrit 42.1 42.0-52.0 [facility] ([facility]) Hemoglobin 13.8 14.0-18.0 [facility] ([facility]) Platelets 190 172-450 [facility] ([facility]) ID Date Data Source [id number] 09/06/2020 08:41:00 AM EDT [facility] ([facility]) Name Value Range Interpretation Code Description Data Sharonda rce(s) Supporting Document(s) Prothrombin Time 28.8 s 12.5-14.3 [facility] ([facility]) Inr 2.64 [facility] ([facility]) THERAPUTIC HUMAN INR VALUES INDICATIONS NORMAL RANGES PROPHYLAXIS/TREATMENT OF: VENOUS THROMBOSIS 2.0-3.0 PULMONARY EMBOLISM 2.0-3.0 PREVENTION OF SYSTEMIC EMBOLISM FROM: TISSUE HEART VALVES 2.0-3.0 ACUTE MYOCARDIAL INFARCTION 2.0-3.0 VALVULAR HEART DISEASE 2.0-3.0 ATRIAL FIBRILLATION 2.0-3.0 MECHANICAL VALVES(HIGH RISK) 2.5-3.5 RECURRENT MYOCARDIAL INFARCTION 2.5-3.5 ID Date Data Source [id number] 08/09/2020 08:04:00 AM EDT MED[facility] ([facility] [place]) Name Value Range Interpretation Code Description Data Sharonda rce(s) Supporting Document(s) Inr 2.29 [facility] ([facility]) THERAPUTIC HUMAN INR VALUES INDICATIONS NORMAL RANGES PROPHYLAXIS/TREATMENT OF: VENOUS THROMBOSIS 2.0-3.0 PULMONARY EMBOLISM 2.0-3.0 PREVENTION OF SYSTEMIC EMBOLISM FROM: TISSUE HEART VALVES 2.0-3.0 ACUTE MYOCARDIAL INFARCTION 2.0-3.0 VALVULAR HEART DISEASE 2.0-3.0 ATRIAL FIBRILLATION 2.0-3.0 MECHANICAL VALVES(HIGH RISK) 2.5-3.5 RECURRENT MYOCARDIAL INFARCTION 2.5-3.5 Prothrombin Time 25.7 s 12.5-14.3 [facility] ([facility] [place]) ID Date Data Source [id number] 07/12/2020 07:29:00 AM EDT [facility] Name Value Range Interpretation Code Description Data Sharonda rce(s) Supporting Document(s) Prothrombin Time 25.1 s 12.5-14.3 [facility] [place] Inr 2.22 [facility] ([facility] [place] THERAPUTIC HUMAN INR VALUES INDICATIONS NORMAL RANGES PROPHYLAXIS/TREATMENT OF: VENOUS THROMBOSIS 2.0-3.0 PULMONARY EMBOLISM 2.0-3.0 PREVENTION OF SYSTEMIC EMBOLISM FROM: TISSUE HEART VALVES 2.0-3.0 ACUTE MYOCARDIAL INFARCTION 2.0-3.0 VALVULAR HEART DISEASE 2.0-3.0 ATRIAL FIBRILLATION 2.0-3.0 MECHANICAL VALVES(HIGH RISK) 2.5-3.5 RECURRENT MYOCARDIAL INFARCTION 2.5-3.5 ID Date Data Source [id number] 06/14/2020 07:48:00 AM EDT [facility] ([facility] [place]) Name Value Range Interpretation Code Description Data Sharonda rce(s) Supporting Document(s) Prothrombin Time 30.2 s 12.5-14.3 [facility] ([facility] [place]) Inr 2.81 [facility] [place] THERAPUTIC HUMAN INR VALUES INDICATIONS NORMAL RANGES PROPHYLAXIS/TREATMENT OF: VENOUS THROMBOSIS 2.0-3.0 PULMONARY EMBOLISM 2.0-3.0 PREVENTION OF SYSTEMIC EMBOLISM FROM: TISSUE HEART VALVES 2.0-3.0 ACUTE MYOCARDIAL INFARCTION 2.0-3.0 VALVULAR HEART DISEASE 2.0-3.0 ATRIAL FIBRILLATION 2.0-3.0 MECHANICAL VALVES(HIGH RISK) 2.5-3.5 RECURRENT MYOCARDIAL INFARCTION 2.5-3.5 ID Date Data Source [id number] [facility]31[facility]2020 [facility] [place] Name Value Range Interpretation Code Description Data Sharonda rce(s) Supporting Document(s) Prothrombin Time 21.6 s 12.5-14.3 [facility] [place] Inr 1.83 [facility] ([facility] [place] THERAPUTIC HUMAN INR VALUES INDICATIONS NORMAL RANGES PROPHYLAXIS/TREATMENT OF: VENOUS THROMBOSIS 2.0-3.0 PULMONARY EMBOLISM 2.0-3.0 PREVENTION OF SYSTEMIC EMBOLISM FROM: TISSUE HEART VALVES 2.0-3.0 ACUTE MYOCARDIAL INFARCTION 2.0-3.0 VALVULAR HEART DISEASE 2.0-3.0 ATRIAL FIBRILLATION 2.0-3.0 MECHANICAL VALVES(HIGH RISK) 2.5-3.5 RECURRENT MYOCARDIAL INFARCTION 2.5-3.5 ID Date Data Source [id number] 05/17/2020 07:43:00 AM EDT [facility] [place] Name Value Range Interpretation Code Description Data Sharonda rce(s) Supporting Document(s) Inr 1.48 [facility] ([facility] [place] THERAPUTIC HUMAN INR VALUES INDICATIONS NORMAL RANGES PROPHYLAXIS/TREATMENT OF: VENOUS THROMBOSIS 2.0-3.0 PULMONARY EMBOLISM 2.0-3.0 PREVENTION OF SYSTEMIC EMBOLISM FROM: TISSUE HEART VALVES 2.0-3.0 ACUTE MYOCARDIAL INFARCTION 2.0-3.0 VALVULAR HEART DISEASE 2.0-3.0 ATRIAL FIBRILLATION 2.0-3.0 MECHANICAL VALVES(HIGH RISK) 2.5-3.5 RECURRENT MYOCARDIAL INFARCTION 2.5-3.5 Prothrombin Time 18.3 s 12.5-14.3 [facility] ([facility]) ID Date Data Source [id number] 05/12/2020 10:53:00 AM EDT [facility] ([facility]) Name Value Range Interpretation Code Description Data Sharonda rce(s) Supporting Document(s) White Blood Count 10.6 [facility] ([facility]) Red Blood Count 4.03 [facility] ([facility]) Hemoglobin 13.6 [facility] ([facility] Platelets 165 [facility] Hematocrit 41.2 [facility] ([facility]) ID Date Data Source [id number] 05/12/2020 10:53:00 AM EDT [facility] ([facility]) Name Value Range Interpretation Code Description Data Sharonda rce(s) Supporting Document(s) Uric Acid 3.1 [facility] ([facility] ID Date Data Source [id number] 05/12/2020 10:53:00 AM EDT [facility] ([facility]) Name Value Range Interpretation Code Description Data Sharonda rce(s) Supporting Document(s) Glucose 218 [facility] ([facility] Blood Urea Nitrogen 25.1 [facility] ([facility]) Sodium 144.7 [facility] ([facility] [place]) Creatinine 1.9 [facility] ([facility]) Glomerular filtration rate/1.73 sq M.pre dicted [Volume Rate/Area] in Serum or Plasma by Creatinine-based formula (MDRD) 34 [facility] ([facility]) Potassium 4.07 [facility] ([facility] Chloride 106.7 [facility] ([facility] Phosphorus 2.9 [facility] ([facility]) Calcium 8.9 [facility] ([facility] Carbon Dioxide 29.8 [facility] ([facility]) Albumin 3.8 [facility] ([facility] ID Date Data Source [id number] 04/30/2020 09:33:00 AM EST [facility] ([facility] [place]) Name Value Range Interpretation Code Description Data Sharonda rce(s) Supporting Document(s) Prothrombin Time 21.9 s 12.5-14.3 [facility] ([facility] [place]) Inr 1.87 [facility] ([facility]) THERAPUTIC HUMAN INR VALUES INDICATIONS NORMAL RANGES PROPHYLAXIS/TREATMENT OF: VENOUS THROMBOSIS 2.0-3.0 PULMONARY EMBOLISM 2.0-3.0 PREVENTION OF SYSTEMIC EMBOLISM FROM: TISSUE HEART VALVES 2.0-3.0 ACUTE MYOCARDIAL INFARCTION 2.0-3.0 VALVULAR HEART DISEASE 2.0-3.0 ATRIAL FIBRILLATION 2.0-3.0 MECHANICAL VALVES(HIGH RISK) 2.5-3.5 RECURRENT MYOCARDIAL INFARCTION 2.5-3.5 ID Date Data Source [id number] 03/16/2020 01:38:00 PM EST [facility] ([facility] [place]) Name Value Range Interpretation Code Description Data Sharonda rce(s) Supporting Document(s) Inr 2.23 [facility] ([facility] [place] THERAPUTIC HUMAN INR VALUES INDICATIONS NORMAL RANGES PROPHYLAXIS/TREATMENT OF: VENOUS THROMBOSIS 2.0-3.0 PULMONARY EMBOLISM 2.0-3.0 PREVENTION OF SYSTEMIC EMBOLISM FROM: TISSUE HEART VALVES 2.0-3.0 ACUTE MYOCARDIAL INFARCTION 2.0-3.0 VALVULAR HEART DISEASE 2.0-3.0 ATRIAL FIBRILLATION 2.0-3.0 MECHANICAL VALVES(HIGH RISK) 2.5-3.5 RECURRENT MYOCARDIAL INFARCTION 2.5-3.5 Prothrombin Time 25.2 s 12.5-14.3 [facility] ([facility] [place]) ID Date Data Source [id number] 03/04/2020 08:35:00 AM EST [facility] ([facility] [place]) Name Value Range Interpretation Code Description Data Sharonda rce(s) Supporting Document(s) Prothrombin Time 32.9 s 12.5-14.3 [facility] ([facility] [place]) Inr 3.13 [facility] ([facility]) THERAPUTIC HUMAN INR VALUES INDICATIONS NORMAL RANGES PROPHYLAXIS/TREATMENT OF: VENOUS THROMBOSIS 2.0-3.0 PULMONARY EMBOLISM 2.0-3.0 PREVENTION OF SYSTEMIC EMBOLISM FROM: TISSUE HEART VALVES 2.0-3.0 ACUTE MYOCARDIAL INFARCTION 2.0-3.0 VALVULAR HEART DISEASE 2.0-3.0 ATRIAL FIBRILLATION 2.0-3.0 MECHANICAL VALVES(HIGH RISK) 2.5-3.5 RECURRENT MYOCARDIAL INFARCTION 2.5-3.5 ID Date Data Source [id number] 02/05/2020 08:37:00 AM EST [facility] Name Value Range Interpretation Code Description Data Sharonda rce(s) Supporting Document(s) Cholesterol Level 73 mg/dL [facility] ([facility]) Triglycerides Level 139 mg/dL [facility] ([facility]) HDL Cholesterol 25 mg/dL [facility] ([facility]) LDL Cholesterol 20 mg/dL [facility] ([facility]) Cholesterol Risk Ratio 2.920 [facility] ([facility]) Non-HDL-C 48 mg/dL [facility] ID Date Data Source [id number] 02/05/2020 08:37:00 AM EST [facility] Name Value Range Interpretation Code Description Data Sharonda rce(s) Supporting Document(s) Glucose, Fasting 247 mg/dL 70-100 [facility] Blood Urea Nitrogen 31 mg/dL 7-18 [facility] ([facility]) Creatinine For GFR 2.08 mg/dL 0.70-1.30 [facility] ([facility]) Glomerular Filtration Rate 33.0 MED [facility] ([facility]) <content>Units are mL/min/1.73 m2</content>
<content></content>
<content>Chronic Kidney Disease Staging per NKF:</content>
<content></content>
<content>Stage I & II GFR >=60 Normal to Mildly Decreased</content>
<content>Stage III GFR 30-59 Moderately Decreased</content>
<content>Stage IV GFR 15-29 Severely Decreased</content>
<content>Stage V GFR <15 Very Little GFR Left</content>
<content>ESRD GFR <15 on REVENUE COORDINATOR</content>
<content></content> Sodium Level 141 meq/L 136-145 [facility] ([facility]) Chloride Level 107 meq/L 98-107 [facility] ([facility]) Potassium Serum 4.5 meq/L 3.5-5.1 [facility] ([facility]) Carbon Dioxide Level 29 meq/L 21-32 [facility] ([facility]) Anion Gap 5 meq/L 8-16 [facility] ([facility]) Ast/Sgot 26 U/L 7-37 [facility] ([facility]) Calcium Level 8.8 mg/dL 8.8-10.2 [facility] ([facility]) Alkaline Phosphatase 80 U/L 45-117 [facility] ([facility]) Alt/SGPT 42 U/L 12-78 [facility] ([facility]) Total Protein 7.1 GM/DL 6.4-8.2 [facility] ([facility]) Bilirubin,Total 0.7 mg/dL 0.2-1.0 [facility] ([facility]) Albumin 3.3 GM/DL 3.2-5.2 [facility] ([facility]) Albumin/Globulin Ratio 0.9 [facility] ([facility]) ID Date Data Source [id number] 02/05/2020 08:37:00 AM EST [facility] ([facility]) Name Value Range Interpretation Code Description Data Sharonda rce(s) Supporting Document(s) Inr 2.71 [facility] ([facility]) THERAPUTIC HUMAN INR VALUES INDICATIONS NORMAL RANGES PROPHYLAXIS/TREATMENT OF: VENOUS THROMBOSIS 2.0-3.0 PULMONARY EMBOLISM 2.0-3.0 PREVENTION OF SYSTEMIC EMBOLISM FROM: TISSUE HEART VALVES 2.0-3.0 ACUTE MYOCARDIAL INFARCTION 2.0-3.0 VALVULAR HEART DISEASE 2.0-3.0 ATRIAL FIBRILLATION 2.0-3.0 MECHANICAL VALVES(HIGH RISK) 2.5-3.5 RECURRENT MYOCARDIAL INFARCTION 2.5-3.5 Prothrombin Time 29.4 s 12.5-14.3 [facility] ([facility] [place]) ID Date Data Source [id number] 01/07/2020 08:04:00 AM EST [facility] ([facility] [place]) Name Value Range Interpretation Code Description Data Sharonda rce(s) Supporting Document(s) Inr 2.24 [facility] ([facility]) THERAPUTIC HUMAN INR VALUES INDICATIONS NORMAL RANGES PROPHYLAXIS/TREATMENT OF: VENOUS THROMBOSIS 2.0-3.0 PULMONARY EMBOLISM 2.0-3.0 PREVENTION OF SYSTEMIC EMBOLISM FROM: TISSUE HEART VALVES 2.0-3.0 ACUTE MYOCARDIAL INFARCTION 2.0-3.0 VALVULAR HEART DISEASE 2.0-3.0 ATRIAL FIBRILLATION 2.0-3.0 MECHANICAL VALVES(HIGH RISK) 2.5-3.5 RECURRENT MYOCARDIAL INFARCTION 2.5-3.5 Prothrombin Time 25.3 s 12.5-14.3 [facility] ([facility] [place]) ID Date Data Source [id number] 12/09/2019 08:57:00 AM EDT [facility] ([facility] [place]) Name Value Range Interpretation Code Description Data Sharonda rce(s) Supporting Document(s) Prothrombin Time 24.4 s 12.5-14.3 [facility] ([facility] [place]) Inr 2.14 [facility] ([facility]) THERAPUTIC HUMAN INR VALUES INDICATIONS NORMAL RANGES PROPHYLAXIS/TREATMENT OF: VENOUS THROMBOSIS 2.0-3.0 PULMONARY EMBOLISM 2.0-3.0 PREVENTION OF SYSTEMIC EMBOLISM FROM: TISSUE HEART VALVES 2.0-3.0 ACUTE MYOCARDIAL INFARCTION 2.0-3.0 VALVULAR HEART DISEASE 2.0-3.0 ATRIAL FIBRILLATION 2.0-3.0 MECHANICAL VALVES(HIGH RISK) 2.5-3.5 RECURRENT MYOCARDIAL INFARCTION 2.5-3.5 Procedure Social History Code Duration Value Status Description Data Source(s ) Smoking 08/11/2020 12:00:00 AM EDT Patient is a former smoker completed Patient is a former smoker [facility] ([facility]) Vital Signs ID Date Data Source UNK Name Value Range Interpretation Code Description Data Source(s) Body weight 218.00 [lb_av] 218.00 [lb_av] MEDEN T ([facility]) Heart rate 56 /min 56 /min [facility] ([facility]) Regular Respiratory rate 16 /min 16 /min [facility] ( [facility]) Systolic blood pressure 126 mm[Hg] 126 mm[Hg] M EDENT ([facility]) sitting, regular cuff Systolic blood pressure 126 mm[Hg] 126 mm[Hg] M EDENT ([facility]) sitting Diastolic blood pressure 60 mm[Hg] 60 mm[Hg] [facility] ([facility]) sitting Diastolic blood pressure 64 mm[Hg] 64 mm[Hg] [facility] of [facility]) sitting, regular cuff Body height 72 [in_i] 72 [in_i] [facility] ([facility]) 6'0" Body mass index (BMI) [Ratio] 29.6 kg/m2 29.6 k g/m2 [facility] ([facility]) Body weight 223.00 [lb_av] 223.00 [lb_av] MEDEN T ([facility]) Body height 72 [in_i] 72 [in_i] MED[facility] ([facility]) 6'0" Respiratory rate 16 /min 16 /min MED[facility] ( [facility]) Diastolic blood pressure 76 mm[Hg] 76 mm[Hg] [facility] ([facility]) sitting, regular cuff Body mass index (BMI) [Ratio] 30.2 kg/m2 30.2 k g/m2 [facility] ([facility]) Heart rate 52 /min 52 /min [facility] ([facility]) Regular Systolic blood pressure 128 mm[Hg] 128 mm[Hg] M EDENT ([facility]) sitting, regular cuff Systolic blood pressure 128 mm[Hg] 128 mm[Hg] M EDENT ([facility]) sitting Diastolic blood pressure 72 mm[Hg] 72 mm[Hg] MED[facility] ([facility]) sitting
[2021-01-21] MEDS ORDERED: WARF4TAB51 PO (11:16)
--- OUTSIDE RECORDS SUMMARY | 2021-01-21 13:38 | CCD ---
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 Public Health law. If you continue you may have access to information: Regarding HIV / AIDS; Provided by facilities licensed or operated by the [facility] Office of Mental Health; or Provided by the [facility] Office for People With Developmental Disabilities. If such information is present, then the following [facility] mandated warning applies: This information has been [...] law may result in a fine or mcc sentence or both. A general authorization for [...] 08/11/2020 10:15:00 AM EDT [facility] ([facility]) Outpatient Attender: Alicia CRISTOBAL Main Office 02/10/2020 09:15:00 AM EST [facility] ([facility]) Immunizations Vaccine Date Status Description Data Source(s) COVID-19 VACCINE Moderna 12/17/2020 12:00:00 AM EDT completed [facility] Vaccine Series Complete: YESThis Data wa s Submitted to [facility] [employer]. COVID-19 VACCINE Moderna 05/17/2020 12:00:00 AM EDT completed [facility] Vaccine Series Complete: YESThis Data wa s Submitted to [facility] [employer]. COVID-19 VACCINE, MRNA-1273, LNP-S (MODERNA)/PF 05/17/2020 1 [...] EST ORAL active [facility] ([facility] Clonazepam 1 MG Oral Tablet Clonazepam 01/17/2021 12:00:00 AM EST ORAL active [facility] ([facility]) 5 mg 01/10/2021 12:00:00 AM EST tablet [...] EVERY MORNING SOLD: 12/17/2020 [facility] Calcitriol 0.27398 MG Oral Capsule 0.25 mcg CALCITRIOL 12/16/2020 [...] SOLD: 06/17/2020 [facility] Polymyxin B 99306 UNT/ML / Trimethoprim 1 MG/ML Ophthalmic Solution [...] ORAL active [facility] ([facility]) 10 mg 04/12/2020 12:00:00 AM EST tablet [...] EVERY DAY SOLD: 04/08/2020 [facility] Calcitriol 0.04839 MG Oral Capsule 0.25 mcg CALCITRIOL 04/05/2020 12:00:00 AM EST capsule 60 TAKE 1 CAPSULE BY MOUTH THROUGH SUNDAY TAKE 1 CAPSULE BY MOUTH SUNDAY THROUGH SUNDAY SOLD: 09/24/2020 [facility] Calcitriol 0.93320 MG Oral Capsule 0.25 mcg CALCITRIOL 04/05/2020 12:00:00 AM EST capsule 60 TAKE 1 CAPSULE BY MOUTH Sunday TAKE 1 CAPSULE BY MOUTH Sunday SOLD: 04/06/2020 [facility] Calcitriol 0.10297 MG Oral Capsule 0.25 mcg CALCITRIOL 04/05/2020 [...] ORAL active [facility] ([facility]) 40 mg 02/01/2020 12:00:00 AM EST tablet [...] type / Coverage type Policy ID Covered libertarian ID Covered libertarian's relationship to zaman Policy Zaman Plan Information [facility] [id number] SP [id number] [facility]S [id number] SP [id number] [employer] MEDICAL CLAIMS [id number] SP [id number] Medicare (Part B) Medicare Primary [id number] Self [id number] Medicare (Part B) Medicare Primary [id number] Self [id number] A Medicare (Part B) Medicare Primary [id number] Self 3 [id number] Medicare (Part B) Medicare Primary [id number] Self Medicare (Part B) Medicare Primary [id number] Self [id number] Medicare (Part B) Medicare Primary [id number] Self [id number] Medicare (Part B) Medicare Primary [id number] Self 1 [id number] Medicare (Part B) Medicare Primary [id number] Self 1 [id number] Medicare Medicare Primary [id number] Self Medicare (Part B) Medicare Primary [id number] Self [id number] MEDICARE [id number] SP [id number] A Medicare (Part B) Medicare Primary [id number] Self [id number] LIFETIME BENEFIT SOLUTIONS [id number] SP [id number] LIFETIME BENEFIT SOLUTIONS [id number] SP [id number] LIFETIME BENEFIT SOLUTIONS [id number] SP [id number] BS [place] Medigap Part B [id number] Self [id number] BS [place] Medigap Part B [id number] Self [id number] MEDICARE [id number] SP [id number] A MEDICARE [id number] SP [id number] A MEDICARE [id number] SP [id number] BCBS [place] PPO 302/307 [id number] SP [id number] BCBS [place] PPO 302/307 [id number] SP [id number] [place] Primary [id number] Self [id number] [place] Medicare Primary [id number] Self [id number] BCBS Excell[place] Ppo U/W Medigap Part B [id number] Self V [id number] BCBS [place] PPO 302/307 [id number] SP [id number] BCBS Excellus Ppo U/W Medigap Part B [id number] Self V [id number] BCBS Excell[employer] U/W Medigap Part B [id number] Self V [id number] BCBS Excell[employer] Ppo U/W Medigap Part B [id number] Self V [id number] BCBS Excell[employer] U/W Medigap Part B [id number] Self V [id number] MEDICARE C [id number] S [id number] A Lifetime Benefit Solut Medigap Part B [id number] Self BCBS [employer] Ppo U/W Medigap Part B [id number] Self BCBS Excell[place] U/W Medigap Part B [id number] Self V [id number] BCBS Excell[employer] U/W Medigap Part B [id number] Self [id number] Lifetime Benefit Solut Medigap Part B [id number] Self [id number] BC/BS [place] Medigap Part B [id number] Self BCBS Excell[employer] U/W Medigap Part B [id number] Self [id number] [employer]/Lifetime Eduardo Solut Medigap Part B [id number] Self Medicare Natl Gov't Servi Medicare Primary [id number] Self [id number] BCBS/Excellus Medigap Part B [id number] Self [id number] Local 910 [place] Medigap Part B [id number] Self [id number] Lifetime Benefit Solution Medigap Part B [id number] Self [id number] Local 910 [place] Medigap Part B [id number] Self [id number] [employer] S [id number] S [id number] [facility] [id number] S [id number] [id number] [employer] Ins Medigap Part B [id number] [id number] Self [id number] MEDICARE C [id number] S [id number] Medicare [place]/NGS Medicare Primary [id number] Self [id number] BCBS Excell[employer] U/W Medigap Part B [id number] Self V [id number] Excellus [facility] Medigap Part B [id number] Self [id number] Problems, Conditions, and Diagnoses No Information Surgeries/Procedures Procedure Description Date Indications Data Source(s) Anticoagulant MGMT For Patient Taking Warfarin, Inc Review & Intr 01/18/2021 12:00:00 AM EST [facility] ([facility]) Anticoagulant MGMT For Patient Taking Warfarin, Inc Review & Intr 12/28/2020 12:00:00 AM EDT [facility] ([facility] [place]) Anticoagulant MGMT For Patient Taking Warfarin, Inc Review & Intr 12/01/2020 12:00:00 AM EDT [facility] ([facility]) Anticoagulant MGMT For Patient Taking Warfarin, Inc Review & Intr 11/03/2020 12:00:00 AM EDT [facility] ([facility] [place]) Anticoagulant MGMT For Patient Taking Warfarin, Inc Review & Intr 10/06/2020 12:00:00 AM EDT [facility] ([facility]) Anticoagulant MGMT For Patient Taking Warfarin, Inc Review & Intr 09/06/2020 12:00:00 AM EDT [facility] ([facility]) ECG ROUTINE ECG W/LEAST 12 LDS W/I&R 08/11/2020 12:00: 00 AM EDT [facility] ([facility]) OFFICE OUTPATIENT VISIT 25 MINUTES 08/11/2020 12:00:00 AM EDT [facility] ([facility]) Anticoagulant MGMT For Patient Taking Warfarin, Inc Review & Intr 08/10/2020 12:00:00 AM EDT [facility] ([facility]) Anticoagulant MGMT For Patient Taking Warfarin, Inc Review & Intr 07/12/2020 12:00:00 AM EDT [facility] ([facility]) Anticoagulant MGMT For Patient Taking Warfarin, Inc Review & Intr 06/14/2020 12:00:00 AM EDT [facility] ([facility]) Anticoagulant MGMT For Patient Taking Warfarin, Inc Review & Intr 05/31/2020 12:00:00 AM EDT [facility] ([facility]) Anticoagulant MGMT For Patient Taking Warfarin, Inc Review & Intr 04/30/2020 12:00:00 AM EST [facility] ([facility]) Anticoagulant MGMT For Patient Taking Warfarin, Inc Review & Intr 04/01/2020 12:00:00 AM EST [facility] ([facility]) Anticoagulant MGMT For Patient Taking Warfarin, Inc Review & Intr 03/18/2020 12:00:00 AM EST [facility] ([facility]) Anticoagulant MGMT For Patient Taking Warfarin, Inc Review & Intr 03/05/2020 12:00:00 AM EST [facility] ([facility]) ECG ROUTINE ECG W/LEAST 12 LDS W/I&R 02/10/2020 12:00: 00 AM EST [facility] ([facility]) Anticoagulant MGMT For Patient Taking Warfarin, Inc Review & Intr 02/05/2020 12:00:00 AM EST [facility] ([facility]) Anticoagulant MGMT For Patient Taking Warfarin, Inc Review & Intr 01/08/2020 12:00:00 AM EST [facility] ([facility]) Anticoagulant MGMT For Patient Taking Warfarin, Inc Review & Intr 12/09/2019 12:00:00 AM EDT [facility] ([facility]) Results ID Date Data Source [id number] 01/18/2021 08:39:00 AM EST [facility] ([facility]) Name Value Range Interpretation Code Description Data Sharonda rce(s) Supporting Document(s) Prothrombin Time 45.5 s 12.7-14.5 [facility] ([facility]) Inr 4.86 [facility] ([facility] THERAPUTIC HUMAN INR VALUES INDICATIONS NORMAL RANGES PROPHYLAXIS/TREATMENT OF: VENOUS THROMBOSIS 2.0-3.0 PULMONARY EMBOLISM 2.0-3.0 PREVENTION OF SYSTEMIC EMBOLISM FROM: TISSUE HEART VALVES 2.0-3.0 ACUTE MYOCARDIAL INFARCTION 2.0-3.0 VALVULAR HEART DISEASE 2.0-3.0 ATRIAL FIBRILLATION 2.0-3.0 MECHANICAL VALVES(HIGH RISK) 2.5-3.5 RECURRENT MYOCARDIAL INFARCTION 2.5-3.5 ID Date Data Source [id number] 12/28/2020 10:14:00 AM EDT [facility] ([facility]) Name Value Range Interpretation Code Description Data Sharonda rce(s) Supporting Document(s) Prothrombin Time 37.6 s 12.7-14.5 [facility] ([facility]) Inr 3.79 [facility] ([facility] [place]) THERAPUTIC HUMAN INR VALUES INDICATIONS NORMAL RANGES PROPHYLAXIS/TREATMENT OF: VENOUS THROMBOSIS 2.0-3.0 PULMONARY EMBOLISM 2.0-3.0 PREVENTION OF SYSTEMIC EMBOLISM FROM: TISSUE HEART VALVES 2.0-3.0 ACUTE MYOCARDIAL INFARCTION 2.0-3.0 VALVULAR HEART DISEASE 2.0-3.0 ATRIAL FIBRILLATION 2.0-3.0 MECHANICAL VALVES(HIGH RISK) 2.5-3.5 RECURRENT MYOCARDIAL INFARCTION 2.5-3.5 ID Date Data Source [id number] 11/29/2020 03:06:00 PM EDT [facility] ([facility]) Name Value Range Interpretation Code Description Data Sharonda rce(s) Supporting Document(s) Prothrombin Time 30.5 s 12.7-14.5 [facility] ([facility]) Inr 2.87 [facility] ([facility] [place]) THERAPUTIC HUMAN INR VALUES INDICATIONS NORMAL RANGES PROPHYLAXIS/TREATMENT OF: VENOUS THROMBOSIS 2.0-3.0 PULMONARY EMBOLISM 2.0-3.0 PREVENTION OF SYSTEMIC EMBOLISM FROM: TISSUE HEART VALVES 2.0-3.0 ACUTE MYOCARDIAL INFARCTION 2.0-3.0 VALVULAR HEART DISEASE 2.0-3.0 ATRIAL FIBRILLATION 2.0-3.0 MECHANICAL VALVES(HIGH RISK) 2.5-3.5 RECURRENT MYOCARDIAL INFARCTION 2.5-3.5 ID Date Data Source [id number] 11/02/2020 11:52:00 AM EDT [facility] ([facility]) Name Value Range Interpretation Code Description Data Sharonda rce(s) Supporting Document(s) Inr 2.83 [facility] ([facility] [place]) THERAPUTIC HUMAN INR VALUES INDICATIONS NORMAL RANGES PROPHYLAXIS/TREATMENT OF: VENOUS THROMBOSIS 2.0-3.0 PULMONARY EMBOLISM 2.0-3.0 PREVENTION OF SYSTEMIC EMBOLISM FROM: TISSUE HEART VALVES 2.0-3.0 ACUTE MYOCARDIAL INFARCTION 2.0-3.0 VALVULAR HEART DISEASE 2.0-3.0 ATRIAL FIBRILLATION 2.0-3.0 MECHANICAL VALVES(HIGH RISK) 2.5-3.5 RECURRENT MYOCARDIAL INFARCTION 2.5-3.5 Prothrombin Time 30.1 s 12.7-14.5 [facility] ([facility] [place]) ID Date Data Source [id number] 10/05/2020 08:14:00 AM EDT [facility] ([facility]) Name Value Range Interpretation Code Description Data Sharonda rce(s) Supporting Document(s) Prothrombin Time 31.4 s 12.7-14.5 [facility] ([facility]) Inr 3.00 [facility] ([facility] [place]) THERAPUTIC HUMAN INR VALUES INDICATIONS NORMAL RANGES PROPHYLAXIS/TREATMENT OF: VENOUS THROMBOSIS 2.0-3.0 PULMONARY EMBOLISM 2.0-3.0 PREVENTION OF SYSTEMIC EMBOLISM FROM: TISSUE HEART VALVES 2.0-3.0 ACUTE MYOCARDIAL INFARCTION 2.0-3.0 VALVULAR HEART DISEASE 2.0-3.0 ATRIAL FIBRILLATION 2.0-3.0 MECHANICAL VALVES(HIGH RISK) 2.5-3.5 RECURRENT MYOCARDIAL INFARCTION 2.5-3.5 ID Date Data Source [id number] 09/13/2020 12:39:00 PM EDT [facility] ([facility]) Name Value Range Interpretation Code Description Data Sharonda rce(s) Supporting Document(s) Blood Urea Nitrogen 25.8 7-18 [facility] ([facility]) Glucose 226 70-106 [facility] ([facility] Glomerular filtration rate/1.73 sq M.pre dicted [Volume Rate/Area] in Serum or Plasma by Creatinine-based formula (MDRD) 34 [facility] ([facility]) Sodium 134.3 135-145 [facility] ([facility] Creatinine 1.9 0.55-1.3 [facility] ([facility]) Potassium 4.13 3.5-5.5 [facility] ([facility]) Chloride 102.6 94-110 [facility] ([facility]) Calcium 9.5 8.5-10.1 [facility] ([facility]) Phosphorus 2.5 [facility] ([facility]) Carbon Dioxide 28.2 21-32 [facility] ([facility]) Albumin 3.9 3.2-5.2 [facility] ([facility]) ID Date Data Source [id number] 09/13/2020 12:39:00 PM EDT [facility] ([facility]) Name Value Range Interpretation Code Description Data Sharonda rce(s) Supporting Document(s) White Blood Count 12.4 5.0-10.0 [facility] ([facility]) Red Blood Count 4.06 4.70-6.10 [facility] ([facility]) Hematocrit 42.1 42.0-52.0 [facility] ([facility]) Hemoglobin 13.8 14.0-18.0 [facility] ([facility]) Platelets 190 172-450 [facility] ([facility]) ID Date Data Source [id number] 09/06/2020 08:41:00 AM EDT [facility] ([facility]) Name Value Range Interpretation Code Description Data Sharonda rce(s) Supporting Document(s) Prothrombin Time 28.8 s 12.5-14.3 [facility] ([facility]) Inr 2.64 [facility] ([facility] THERAPUTIC HUMAN INR VALUES INDICATIONS NORMAL RANGES PROPHYLAXIS/TREATMENT OF: VENOUS THROMBOSIS 2.0-3.0 PULMONARY EMBOLISM 2.0-3.0 PREVENTION OF SYSTEMIC EMBOLISM FROM: TISSUE HEART VALVES 2.0-3.0 ACUTE MYOCARDIAL INFARCTION 2.0-3.0 VALVULAR HEART DISEASE 2.0-3.0 ATRIAL FIBRILLATION 2.0-3.0 MECHANICAL VALVES(HIGH RISK) 2.5-3.5 RECURRENT MYOCARDIAL INFARCTION 2.5-3.5 ID Date Data Source [id number] 08/09/2020 08:04:00 AM EDT [facility] ([facility] [place]) Name Value Range Interpretation Code Description Data Sharonda rce(s) Supporting Document(s) Inr 2.29 [facility] ([facility]) THERAPUTIC HUMAN INR VALUES INDICATIONS NORMAL RANGES PROPHYLAXIS/TREATMENT OF: VENOUS THROMBOSIS 2.0-3.0 PULMONARY EMBOLISM 2.0-3.0 PREVENTION OF SYSTEMIC EMBOLISM FROM: TISSUE HEART VALVES 2.0-3.0 ACUTE MYOCARDIAL INFARCTION 2.0-3.0 VALVULAR HEART DISEASE 2.0-3.0 ATRIAL FIBRILLATION 2.0-3.0 MECHANICAL VALVES(HIGH RISK) 2.5-3.5 RECURRENT MYOCARDIAL INFARCTION 2.5-3.5 Prothrombin Time 25.7 s 12.5-14.3 [facility] ([facility] [place]) ID Date Data Source [id number] 07/12/2020 07:29:00 AM EDT [facility] Name Value Range Interpretation Code Description Data Sharonda rce(s) Supporting Document(s) Prothrombin Time 25.1 s 12.5-14.3 [facility] [place] [facility] Inr 2.22 [facility] ([facility] [place] THERAPUTIC HUMAN INR VALUES INDICATIONS NORMAL RANGES PROPHYLAXIS/TREATMENT OF: VENOUS THROMBOSIS 2.0-3.0 PULMONARY EMBOLISM 2.0-3.0 PREVENTION OF SYSTEMIC EMBOLISM FROM: TISSUE HEART VALVES 2.0-3.0 ACUTE MYOCARDIAL INFARCTION 2.0-3.0 VALVULAR HEART DISEASE 2.0-3.0 ATRIAL FIBRILLATION 2.0-3.0 MECHANICAL VALVES(HIGH RISK) 2.5-3.5 RECURRENT MYOCARDIAL INFARCTION 2.5-3.5 ID Date Data Source [id number] 06/14/2020 07:48:00 AM EDT [facility] ([facility] [place]) Name Value Range Interpretation Code Description Data Sharonda rce(s) Supporting Document(s) Prothrombin Time 30.2 s 12.5-14.3 [facility] ([facility] [place]) Inr 2.81 [facility] [place] THERAPUTIC HUMAN INR VALUES INDICATIONS NORMAL RANGES PROPHYLAXIS/TREATMENT OF: VENOUS THROMBOSIS 2.0-3.0 PULMONARY EMBOLISM 2.0-3.0 PREVENTION OF SYSTEMIC EMBOLISM FROM: TISSUE HEART VALVES 2.0-3.0 ACUTE MYOCARDIAL INFARCTION 2.0-3.0 VALVULAR HEART DISEASE 2.0-3.0 ATRIAL FIBRILLATION 2.0-3.0 MECHANICAL VALVES(HIGH RISK) 2.5-3.5 RECURRENT MYOCARDIAL INFARCTION 2.5-3.5 ID Date Data Source [id number] [facility]/31[facility]2020 [facility]:05[facility] [place] Name Value Range Interpretation Code Description Data Sharonda rce(s) Supporting Document(s) Prothrombin Time 21.6 s 12.5-14.3 [facility] ([facility] [place] Inr 1.83 [facility] ([facility] [place] THERAPUTIC HUMAN INR VALUES INDICATIONS NORMAL RANGES PROPHYLAXIS/TREATMENT OF: VENOUS THROMBOSIS 2.0-3.0 PULMONARY EMBOLISM 2.0-3.0 PREVENTION OF SYSTEMIC EMBOLISM FROM: TISSUE HEART VALVES 2.0-3.0 ACUTE MYOCARDIAL INFARCTION 2.0-3.0 VALVULAR HEART DISEASE 2.0-3.0 ATRIAL FIBRILLATION 2.0-3.0 MECHANICAL VALVES(HIGH RISK) 2.5-3.5 RECURRENT MYOCARDIAL INFARCTION 2.5-3.5 ID Date Data Source [id number] 05/17/2020 07:43:00 AM EDT [facility] Name Value Range Interpretation Code Description Data Sharonda rce(s) Supporting Document(s) Inr 1.48 [facility] ([facility] [place]) THERAPUTIC HUMAN INR VALUES INDICATIONS NORMAL RANGES PROPHYLAXIS/TREATMENT OF: VENOUS THROMBOSIS 2.0-3.0 PULMONARY EMBOLISM 2.0-3.0 PREVENTION OF SYSTEMIC EMBOLISM FROM: TISSUE HEART VALVES 2.0-3.0 ACUTE MYOCARDIAL INFARCTION 2.0-3.0 VALVULAR HEART DISEASE 2.0-3.0 ATRIAL FIBRILLATION 2.0-3.0 MECHANICAL VALVES(HIGH RISK) 2.5-3.5 RECURRENT MYOCARDIAL INFARCTION 2.5-3.5 Prothrombin Time 18.3 s 12.5-14.3 [facility] ([facility] ID Date Data Source [id number] 05/12/2020 10:53:00 AM EDT [facility] ([facility]) Name Value Range Interpretation Code Description Data Sharonda rce(s) Supporting Document(s) White Blood Count 10.6 [facility] ([facility]) Red Blood Count 4.03 [facility] ([facility]) Hemoglobin 13.6 [facility] ([facility]) Platelets 165 [facility] Hematocrit 41.2 [facility] ([facility]) ID Date Data Source [id number] 05/12/2020 10:53:00 AM EDT [facility] ([facility]) Name Value Range Interpretation Code Description Data Sharonda rce(s) Supporting Document(s) Uric Acid 3.1 [facility] ID Date Data Source [id number] 05/12/2020 10:53:00 AM EDT [facility] ([facility]) Name Value Range Interpretation Code Description Data Sharonda rce(s) Supporting Document(s) Glucose 218 [facility] Blood Urea Nitrogen 25.1 [facility] ([facility]) Sodium 144.7 [facility] ([facility] [...] Dioxide 29.8 [facility] ([facility]) Albumin 3.8 [facility] ([facility] ID Date Data Source [id number] 04/30/2020 09:33:00 AM EST [facility] ([facility] [place] Name Value Range Interpretation Code Description Data Sharonda rce(s) Supporting Document(s) Prothrombin Time 21.9 s 12.5-14.3 [facility] ([facility] [place]) Inr 1.87 [facility] ([facility]) THERAPUTIC HUMAN INR VALUES INDICATIONS NORMAL RANGES PROPHYLAXIS/TREATMENT OF: VENOUS THROMBOSIS 2.0-3.0 PULMONARY EMBOLISM 2.0-3.0 PREVENTION OF SYSTEMIC EMBOLISM FROM: TISSUE HEART VALVES 2.0-3.0 ACUTE MYOCARDIAL INFARCTION 2.0-3.0 VALVULAR HEART DISEASE 2.0-3.0 ATRIAL FIBRILLATION 2.0-3.0 MECHANICAL VALVES(HIGH RISK) 2.5-3.5 RECURRENT MYOCARDIAL INFARCTION 2.5-3.5 ID Date Data Source [id number] 03/16/2020 01:38:00 PM EST [facility] ([facility] [place]) Name Value Range Interpretation Code Description Data Sharonda rce(s) Supporting Document(s) Inr 2.23 [facility] ([facility] [place] THERAPUTIC HUMAN INR VALUES INDICATIONS NORMAL RANGES PROPHYLAXIS/TREATMENT OF: VENOUS THROMBOSIS 2.0-3.0 PULMONARY EMBOLISM 2.0-3.0 PREVENTION OF SYSTEMIC EMBOLISM FROM: TISSUE HEART VALVES 2.0-3.0 ACUTE MYOCARDIAL INFARCTION 2.0-3.0 VALVULAR HEART DISEASE 2.0-3.0 ATRIAL FIBRILLATION 2.0-3.0 MECHANICAL VALVES(HIGH RISK) 2.5-3.5 RECURRENT MYOCARDIAL INFARCTION 2.5-3.5 Prothrombin Time 25.2 s 12.5-14.3 [facility] ([facility] [place]) ID Date Data Source [id number] 03/04/2020 08:35:00 AM EST [facility] ([facility] [place]) Name Value Range Interpretation Code Description Data Sharonda rce(s) Supporting Document(s) Prothrombin Time 32.9 s 12.5-14.3 [facility] ([facility] [place]) Inr 3.13 MED[facility] (Cardiology [facility]) THERAPUTIC HUMAN INR VALUES INDICATIONS NORMAL RANGES PROPHYLAXIS/TREATMENT OF: VENOUS THROMBOSIS 2.0-3.0 PULMONARY EMBOLISM 2.0-3.0 PREVENTION OF SYSTEMIC EMBOLISM FROM: TISSUE HEART VALVES 2.0-3.0 ACUTE MYOCARDIAL INFARCTION 2.0-3.0 VALVULAR HEART DISEASE 2.0-3.0 ATRIAL FIBRILLATION 2.0-3.0 MECHANICAL VALVES(HIGH RISK) 2.5-3.5 RECURRENT MYOCARDIAL INFARCTION 2.5-3.5 ID Date Data Source [id number] 02/05/2020 08:37:00 AM EST [facility] Name Value Range Interpretation Code Description Data Sharonda rce(s) Supporting Document(s) Cholesterol Level 73 mg/dL MED[facility] ([facility]) Triglycerides Level 139 mg/dL MED[facility] ([facility]) HDL Cholesterol 25 mg/dL MED[facility] ([facility]) LDL Cholesterol 20 mg/dL MED[facility] ([facility]) Cholesterol Risk Ratio 2.920 MED[facility] ([facility]) Non-HDL-C 48 mg/dL [facility] ID Date Data Source [id number] 02/05/2020 08:37:00 AM EST [facility] Name Value Range Interpretation Code Description Data Sharonda rce(s) Supporting Document(s) Glucose, Fasting 247 mg/dL 70-100 [facility] Blood Urea Nitrogen 31 mg/dL 7-18 MED[facility] ([facility]) Creatinine For GFR 2.08 mg/dL 0.70-1.30 MEDENT ([facility]) Glomerular Filtration Rate 33.0 MED ENT ([facility]) <content>Units are mL/min/1.73 m2</content>
<content></content>
<content>Chronic Kidney Disease Staging per NKF:</content>
<content></content>
<content>Stage I & II GFR >=60 Normal to Mildly Decreased</content>
<content>Stage III GFR 30-59 Moderately Decreased</content>
<content>Stage IV GFR 15-29 Severely Decreased</content>
<content>Stage V GFR <15 Very Little GFR Left</content>
<content>ESRD GFR <15 on [employer]</content>
<content></content> Sodium Level 141 meq/L 136-145 [facility] ([facility]) Chloride Level 107 meq/L 98-107 MED[facility] ([facility]iol [facility]) Potassium Serum 4.5 meq/L 3.5-5.1 MED[facility] ([facility]) Carbon Dioxide Level 29 meq/L 21-32 MED[facility] ([facility]) Anion Gap 5 meq/L 8-16 [facility] ([facility] Ast/Sgot 26 U/L 7-37 MED[facility] ([facility] Calcium Level 8.8 mg/dL 8.8-10.2 MED[facility] ([facility]) Alkaline Phosphatase 80 U/L 45-117 MED[facility] ([facility]) Alt/SGPT 42 U/L 12-78 [facility] ([facility] Total Protein 7.1 GM/DL 6.4-8.2 MED[facility] ([facility]) Bilirubin,Total 0.7 mg/dL 0.2-1.0 MED[facility] ([facility]) Albumin 3.3 GM/DL 3.2-5.2 [facility] ([facility]) Albumin/Globulin Ratio 0.9 MED[facility] ([facility]) ID Date Data Source [id number] 02/05/2020 08:37:00 AM EST MEDENT ([facility]) Name Value Range Interpretation Code Description Data Sharonda rce(s) Supporting Document(s) Inr 2.71 [facility] ([facility] THERAPUTIC HUMAN INR VALUES INDICATIONS NORMAL RANGES PROPHYLAXIS/TREATMENT OF: VENOUS THROMBOSIS 2.0-3.0 PULMONARY EMBOLISM 2.0-3.0 PREVENTION OF SYSTEMIC EMBOLISM FROM: TISSUE HEART VALVES 2.0-3.0 ACUTE MYOCARDIAL INFARCTION 2.0-3.0 VALVULAR HEART DISEASE 2.0-3.0 ATRIAL FIBRILLATION 2.0-3.0 MECHANICAL VALVES(HIGH RISK) 2.5-3.5 RECURRENT MYOCARDIAL INFARCTION 2.5-3.5 Prothrombin Time 29.4 s 12.5-14.3 [facility] ([facility] [place]) ID Date Data Source [id number] 01/07/2020 08:04:00 AM EST [facility] ([facility] [place]) Name Value Range Interpretation Code Description Data Sharonda rce(s) Supporting Document(s) Inr 2.24 [facility] ([facility]) THERAPUTIC HUMAN INR VALUES INDICATIONS NORMAL RANGES PROPHYLAXIS/TREATMENT OF: VENOUS THROMBOSIS 2.0-3.0 PULMONARY EMBOLISM 2.0-3.0 PREVENTION OF SYSTEMIC EMBOLISM FROM: TISSUE HEART VALVES 2.0-3.0 ACUTE MYOCARDIAL INFARCTION 2.0-3.0 VALVULAR HEART DISEASE 2.0-3.0 ATRIAL FIBRILLATION 2.0-3.0 MECHANICAL VALVES(HIGH RISK) 2.5-3.5 RECURRENT MYOCARDIAL INFARCTION 2.5-3.5 Prothrombin Time 25.3 s 12.5-14.3 [facility] ([facility] [place]) ID Date Data Source [id number] 12/09/2019 08:57:00 AM EDT MED[facility] ([facility] [place]) Name Value Range Interpretation Code Description Data Sharonda rce(s) Supporting Document(s) Prothrombin Time 24.4 s 12.5-14.3 [facility] ([facility] [place]) Inr 2.14 [facility] ([facility]) THERAPUTIC HUMAN INR VALUES INDICATIONS [...] is a former smoker MEDENT (Cardiology [facility]) Vital Signs ID Date Data Source [id number] Name Value Range Interpretation Code Description Data Source(s) Body weight 218.00 [lb_av] 218.00 [lb_av] MEDEN T (Cardiology [facility]) Heart rate 56 /min 56 /min MED[facility] ([facility]) Regular Respiratory rate 16 /min 16 /min MED[facility] ( [facility]) Systolic blood pressure 126 mm[Hg] 126 mm[Hg] M EDENT ([facility]) sitting, regular cuff Systolic blood pressure 126 mm[Hg] 126 mm[Hg] M EDENT ([facility]) sitting Diastolic blood pressure 60 mm[Hg] 60 mm[Hg] MED[facility] ([facility]) sitting Diastolic blood pressure 64 mm[Hg] 64 mm[Hg] MED[facility] ([facility]) sitting, regular cuff Body height 72 [in_i] 72 [in_i] [facility] 6'0" Body mass index (BMI) [Ratio] 29.6 kg/m2 29.6 k g/m2 MED[facility] ([facility]) Body weight 223.00 [lb_av] 223.00 [lb_av] MEDEN T ([facility]) Body height 72 [in_i] 72 [in_i] MED[facility] ([facility]) 6'0" Respiratory rate 16 /min 16 /min MED[facility] ( [facility]) Diastolic blood pressure 76 mm[Hg] 76 mm[Hg] MED[facility] ([facility]) sitting, regular cuff Body mass index (BMI) [Ratio] 30.2 kg/m2 30.2 k g/m2 MED[facility] ([facility]) Heart rate 52 /min 52 /min MED[facility] ([facility]) Regular Systolic blood pressure 128 mm[Hg] 128 mm[Hg] M EDENT ([facility]) sitting, regular cuff Systolic blood pressure 128 mm[Hg] 128 mm[Hg] M EDENT ([facility]) sitting Diastolic blood pressure 72 mm[Hg] 72 mm[Hg] MED[facility] ([facility]) sitting
--- OUTSIDE RECORDS SUMMARY | 2021-01-21 14:25 | CCD ---
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 If you continue you may have access to information: Regarding HIV / AIDS; Provided by facilities licensed or operated by the [facility] Office of Mental Health; or Provided by the [facility] Office for People With Developmental Disabilities. If such information is present, then the following [facility] mandated warning applies: This information has been [...] law may result in a fine or skilled nursing sentence or both. A general authorization for [...] 08/11/2020 10:15:00 AM EDT [facility] ([facility]) Outpatient Attender: Alicia CRISTOBAL Main Office 02/10/2020 09:15:00 AM EST [facility] ([facility]) Immunizations Vaccine Date Status Description Data Source(s) COVID-19 VACCINE Moderna 12/17/2020 12:00:00 AM EDT completed [facility] Vaccine Series Complete: YESThis Data wa s Submitted to [facility]. COVID-19 VACCINE Moderna 05/17/2020 12:00:00 AM EDT completed [facility] Vaccine Series Complete: YESThis Data wa s Submitted to [facility]. COVID-19 VACCINE, MRNA-1273, LNP-S (MODERNA)/PF 05/17/2020 1 [...] EST ORAL active [facility] ([facility] Clonazepam 1 MG Oral Tablet Clonazepam 01/17/2021 12:00:00 AM EST ORAL active [facility] ([facility]) 5 mg 01/10/2021 12:00:00 AM EST [...] EVERY MORNING SOLD: 12/17/2020 [facility] Calcitriol 0.24221 MG Oral Capsule 0.25 mcg CALCITRIOL 12/16/2020 [...] SOLD: 06/17/2020 [facility] Polymyxin B 71290 UNT/ML / Trimethoprim 1 MG/ML Ophthalmic Solution [...] ORAL active [facility] ([facility]) 10 mg 04/12/2020 12:00:00 AM EST tablet [...] EVERY DAY SOLD: 04/08/2020 [facility] Calcitriol 0.34435 MG Oral Capsule 0.25 mcg CALCITRIOL 04/05/2020 12:00:00 AM EST capsule 60 TAKE 1 CAPSULE BY MOUTH THROUGH SUNDAY TAKE 1 CAPSULE BY MOUTH SUNDAY THROUGH SUNDAY SOLD: 09/24/2020 [facility] Calcitriol 0.32807 MG Oral Capsule 0.25 mcg CALCITRIOL 04/05/2020 12:00:00 AM EST capsule 60 TAKE 1 CAPSULE BY MOUTH Sunday TAKE 1 CAPSULE BY MOUTH Sunday SOLD: 04/06/2020 [facility] Calcitriol 0.69715 MG Oral Capsule 0.25 mcg CALCITRIOL 04/05/2020 [...] ORAL active [facility] ([facility]) 40 mg 02/01/2020 12:00:00 AM EST tablet [...] type / Coverage type Policy ID Covered green party ID Covered green party's relationship to zaman Policy Zaman Plan Information [facility] [id number] SP [id number] [facility]S [id number] SP [id number] [employer] MEDICAL CLAIMS [id number] SP [id number] Medicare (Part B) Medicare Primary [id number] Self 3 [id number] Medicare (Part B) Medicare Primary [id number] Self 1 [id number] A Medicare (Part B) Medicare Primary [id number] Self 3 [id number] Medicare (Part B) Medicare Primary [id number] Self Medicare (Part B) Medicare Primary [id number] Self 1 [id number] Medicare (Part B) Medicare Primary [id number] Self 3 [id number] Medicare (Part B) Medicare Primary [id number] Self 1 [id number] Medicare (Part B) Medicare Primary [id number] Self 1 [id number] Medicare Medicare Primary [id number] Self Medicare (Part B) Medicare Primary [id number] Self [id number] MEDICARE [id number] SP [id number] A Medicare (Part B) Medicare Primary [id number] Self [id number] LIFETIME BENEFIT SOLUTIONS [id number] SP [id number] LIFETIME BENEFIT SOLUTIONS [id number] SP [id number] LIFETIME BENEFIT SOLUTIONS [id number] SP [id number] BS [place] Medigap Part B [id number] Self [id number] BS [place] Medigap Part B [id number] Self [id number] MEDICARE [id number] SP [id number] A MEDICARE [id number] SP [id number] A MEDICARE [id number] SP [id number] BCBS [place] PPO 302/307 [id number] SP [id number] BCBS [place] PPO 302/307 [id number] SP [id number] [place] Primary [id number] Self [id number] [place] Primary [id number] Self [id number] BCBS [employer] Ppo U/W Medigap Part B [id number] Self V [id number] BCBS [place] PPO 302/307 [id number] SP [id number] BCBS [employer] Ppo U/W Medigap Part B [id number] Self V [id number] BCBS [employer] U/W Medigap Part B [id number] Self V [id number] BCBS [employer] Ppo U/W Medigap Part B [id number] Self V [id number] BCBS [employer] U/W Medigap Part B [id number] Self V [id number] MEDICARE C [id number] S [id number] A Lifetime Benefit Solut Medigap Part B [id number] Self BCBS [employer] Ppo U/W Medigap Part B [id number] Self BCBS [employer] U/W Medigap Part B [id number] Self V [id number] BCBS [employer] U/W Medigap Part B [id number] Self [id number] Lifetime Benefit Solut Medigap Part B [id number] Self [id number] BC/BS [place] Medigap Part B [id number] Self BCBS [employer] U/W Medigap Part B [id number] Self [id number] [employer]/Lifetime Eduardo Solut Medigap Part B [id number] Self Medicare Natl Gov't Servi Medicare Primary [id number] Self [id number] BCBS/[employer] Medigap Part B [id number] Self [id number] Local [address] [place] Medigap Part B [id number] Self [id number] Lifetime Benefit Solution Medigap Part B [id number] Self [id number] Local 910 [place] Medigap Part B [id number] Self [id number] [employer] S [id number] S [id number] [facility] BS B [id number] S [id number] [id number] [employer] Ins Medigap Part B [id number] [id number] Self [id number] MEDICARE C [id number] S [id number] Medicare [place] Medicare Primary [id number] Self [id number] BCBS [employer] U/W Medigap Part B [id number] Self V [id number] Excell[employer] [facility] Medigap Part B [id number] Self [id number] Problems, Conditions, and Diagnoses No Information Surgeries/Procedures Procedure Description Date Indications Data Source(s) Anticoagulant MGMT For Patient Taking Warfarin, Inc Review & Intr 01/18/2021 12:00:00 AM EST [facility] ([facility]) Anticoagulant MGMT For Patient Taking Warfarin, Inc Review & Intr 12/28/2020 12:00:00 AM EDT [facility] ([facility] [place]) Anticoagulant MGMT For Patient Taking Warfarin, Inc Review & Intr 12/01/2020 12:00:00 AM EDT [facility] ([facility]) Anticoagulant MGMT For Patient Taking Warfarin, Inc Review & Intr 11/03/2020 12:00:00 AM EDT [facility] ([facility] [place]) Anticoagulant MGMT For Patient Taking Warfarin, Inc Review & Intr 10/06/2020 12:00:00 AM EDT [facility] ([facility]) Anticoagulant MGMT For Patient Taking Warfarin, Inc Review & Intr 09/06/2020 12:00:00 AM EDT [facility] ([facility]) ECG ROUTINE ECG W/LEAST 12 LDS W/I&R 08/11/2020 12:00: 00 AM EDT [facility] ([facility]) OFFICE OUTPATIENT VISIT 25 MINUTES 08/11/2020 12:00:00 AM EDT [facility] ([facility]) Anticoagulant MGMT For Patient Taking Warfarin, Inc Review & Intr 08/10/2020 12:00:00 AM EDT [facility] ([facility]) Anticoagulant MGMT For Patient Taking Warfarin, Inc Review & Intr 07/12/2020 12:00:00 AM EDT [facility] ([facility]) Anticoagulant MGMT For Patient Taking Warfarin, Inc Review & Intr 06/14/2020 12:00:00 AM EDT [facility] ([facility]) Anticoagulant MGMT For Patient Taking Warfarin, Inc Review & Intr 05/31/2020 12:00:00 AM EDT [facility] ([facility]) Anticoagulant MGMT For Patient Taking Warfarin, Inc Review & Intr 04/30/2020 12:00:00 AM EST [facility] ([facility]) Anticoagulant MGMT For Patient Taking Warfarin, Inc Review & Intr 04/01/2020 12:00:00 AM EST [facility] ([facility]) Anticoagulant MGMT For Patient Taking Warfarin, Inc Review & Intr 03/18/2020 12:00:00 AM EST [facility] ([facility]) Anticoagulant MGMT For Patient Taking Warfarin, Inc Review & Intr 03/05/2020 12:00:00 AM EST [facility] ([facility]) ECG ROUTINE ECG W/LEAST 12 LDS W/I&R 02/10/2020 12:00: 00 AM EST [facility] ([facility]) Anticoagulant MGMT For Patient Taking Warfarin, Inc Review & Intr 02/05/2020 12:00:00 AM EST [facility] ([facility]) Anticoagulant MGMT For Patient Taking Warfarin, Inc Review & Intr 01/08/2020 12:00:00 AM EST [facility] ([facility]) Anticoagulant MGMT For Patient Taking Warfarin, Inc Review & Intr 12/09/2019 12:00:00 AM EDT [facility] ([facility]) Results ID Date Data Source [id number] 01/18/2021 08:39:00 AM EST [facility] ([facility] Name Value Range Interpretation Code Description Data Sharonda rce(s) Supporting Document(s) Prothrombin Time 45.5 s 12.7-14.5 [facility] ([facility] Inr 4.86 [facility] ([facility]) THERAPUTIC HUMAN INR VALUES INDICATIONS NORMAL RANGES PROPHYLAXIS/TREATMENT OF: VENOUS THROMBOSIS 2.0-3.0 PULMONARY EMBOLISM 2.0-3.0 PREVENTION OF SYSTEMIC EMBOLISM FROM: TISSUE HEART VALVES 2.0-3.0 ACUTE MYOCARDIAL INFARCTION 2.0-3.0 VALVULAR HEART DISEASE 2.0-3.0 ATRIAL FIBRILLATION 2.0-3.0 MECHANICAL VALVES(HIGH RISK) 2.5-3.5 RECURRENT MYOCARDIAL INFARCTION 2.5-3.5 ID Date Data Source [id number] 12/28/2020 10:14:00 AM EDT [facility] ([facility]) Name Value Range Interpretation Code Description Data Sharonda rce(s) Supporting Document(s) Prothrombin Time 37.6 s 12.7-14.5 [facility] ([facility] Inr 3.79 [facility] ([facility]) THERAPUTIC HUMAN INR VALUES INDICATIONS NORMAL RANGES PROPHYLAXIS/TREATMENT OF: VENOUS THROMBOSIS 2.0-3.0 PULMONARY EMBOLISM 2.0-3.0 PREVENTION OF SYSTEMIC EMBOLISM FROM: TISSUE HEART VALVES 2.0-3.0 ACUTE MYOCARDIAL INFARCTION 2.0-3.0 VALVULAR HEART DISEASE 2.0-3.0 ATRIAL FIBRILLATION 2.0-3.0 MECHANICAL VALVES(HIGH RISK) 2.5-3.5 RECURRENT MYOCARDIAL INFARCTION 2.5-3.5 ID Date Data Source [id number] 11/29/2020 03:06:00 PM EDT [facility] ([facility]) Name Value Range Interpretation Code Description Data Sharonda rce(s) Supporting Document(s) Prothrombin Time 30.5 s 12.7-14.5 [facility] ([facility] Inr 2.87 [facility] ([facility]) THERAPUTIC HUMAN INR VALUES INDICATIONS NORMAL RANGES PROPHYLAXIS/TREATMENT OF: VENOUS THROMBOSIS 2.0-3.0 PULMONARY EMBOLISM 2.0-3.0 PREVENTION OF SYSTEMIC EMBOLISM FROM: TISSUE HEART VALVES 2.0-3.0 ACUTE MYOCARDIAL INFARCTION 2.0-3.0 VALVULAR HEART DISEASE 2.0-3.0 ATRIAL FIBRILLATION 2.0-3.0 MECHANICAL VALVES(HIGH RISK) 2.5-3.5 RECURRENT MYOCARDIAL INFARCTION 2.5-3.5 ID Date Data Source [id number] 11/02/2020 11:52:00 AM EDT [facility] ([facility]) Name Value Range Interpretation Code Description Data Sharonda rce(s) Supporting Document(s) Inr 2.83 [facility] ([facility]) THERAPUTIC HUMAN INR VALUES INDICATIONS NORMAL RANGES PROPHYLAXIS/TREATMENT OF: VENOUS THROMBOSIS 2.0-3.0 PULMONARY EMBOLISM 2.0-3.0 PREVENTION OF SYSTEMIC EMBOLISM FROM: TISSUE HEART VALVES 2.0-3.0 ACUTE MYOCARDIAL INFARCTION 2.0-3.0 VALVULAR HEART DISEASE 2.0-3.0 ATRIAL FIBRILLATION 2.0-3.0 MECHANICAL VALVES(HIGH RISK) 2.5-3.5 RECURRENT MYOCARDIAL INFARCTION 2.5-3.5 Prothrombin Time 30.1 s 12.7-14.5 [facility] ([facility] ID Date Data Source [id number] 10/05/2020 08:14:00 AM EDT [facility] ([facility]) Name Value Range Interpretation Code Description Data Sharonda rce(s) Supporting Document(s) Prothrombin Time 31.4 s 12.7-14.5 [facility] ([facility] Inr 3.00 [facility] ([facility]) THERAPUTIC HUMAN INR VALUES INDICATIONS NORMAL RANGES PROPHYLAXIS/TREATMENT OF: VENOUS THROMBOSIS 2.0-3.0 PULMONARY EMBOLISM 2.0-3.0 PREVENTION OF SYSTEMIC EMBOLISM FROM: TISSUE HEART VALVES 2.0-3.0 ACUTE MYOCARDIAL INFARCTION 2.0-3.0 VALVULAR HEART DISEASE 2.0-3.0 ATRIAL FIBRILLATION 2.0-3.0 MECHANICAL VALVES(HIGH RISK) 2.5-3.5 RECURRENT MYOCARDIAL INFARCTION 2.5-3.5 ID Date Data Source [id number] 09/13/2020 12:39:00 PM EDT [facility] ([facility]) Name Value Range Interpretation Code Description Data Sharonda rce(s) Supporting Document(s) Blood Urea Nitrogen 25.8 7-18 [facility] ([facility]) Glucose 226 70-106 [facility] ([facility]) Glomerular filtration rate/1.73 sq M.pre dicted [Volume Rate/Area] in Serum or Plasma by Creatinine-based formula (MDRD) 34 [facility] ([facility]) Sodium 134.3 135-145 [facility] ([facility]) Creatinine 1.9 0.55-1.3 [facility] ([facility]) Potassium 4.13 3.5-5.5 [facility] ([facility]) Chloride 102.6 94-110 [facility] ([facility]) Calcium 9.5 8.5-10.1 [facility] ([facility]) Phosphorus 2.5 [facility] ([facility]) Carbon Dioxide 28.2 21-32 [facility] ([facility]) Albumin 3.9 3.2-5.2 [facility] ([facility]) ID Date Data Source [id number] 09/13/2020 12:39:00 PM EDT [facility] ([facility]) Name Value Range Interpretation Code Description Data Sharonda rce(s) Supporting Document(s) White Blood Count 12.4 5.0-10.0 [facility] ([facility]) Red Blood Count 4.06 4.70-6.10 [facility] ([facility]) Hematocrit 42.1 42.0-52.0 [facility] ([facility]) Hemoglobin 13.8 14.0-18.0 [facility] ([facility]) Platelets 190 172-450 [facility] ([facility]) ID Date Data Source [id number] 09/06/2020 08:41:00 AM EDT [facility] ([facility]) Name Value Range Interpretation Code Description Data Sharonda rce(s) Supporting Document(s) Prothrombin Time 28.8 s 12.5-14.3 [facility] ([facility]) Inr 2.64 [facility] ([facility]) THERAPUTIC HUMAN INR VALUES INDICATIONS NORMAL RANGES PROPHYLAXIS/TREATMENT OF: VENOUS THROMBOSIS 2.0-3.0 PULMONARY EMBOLISM 2.0-3.0 PREVENTION OF SYSTEMIC EMBOLISM FROM: TISSUE HEART VALVES 2.0-3.0 ACUTE MYOCARDIAL INFARCTION 2.0-3.0 VALVULAR HEART DISEASE 2.0-3.0 ATRIAL FIBRILLATION 2.0-3.0 MECHANICAL VALVES(HIGH RISK) 2.5-3.5 RECURRENT MYOCARDIAL INFARCTION 2.5-3.5 ID Date Data Source [id number] 08/09/2020 08:04:00 AM EDT [facility] ([facility] Name Value Range Interpretation Code Description Data Sharonda rce(s) Supporting Document(s) Inr 2.29 [facility] ([facility]) THERAPUTIC HUMAN INR VALUES INDICATIONS NORMAL RANGES PROPHYLAXIS/TREATMENT OF: VENOUS THROMBOSIS 2.0-3.0 PULMONARY EMBOLISM 2.0-3.0 PREVENTION OF SYSTEMIC EMBOLISM FROM: TISSUE HEART VALVES 2.0-3.0 ACUTE MYOCARDIAL INFARCTION 2.0-3.0 VALVULAR HEART DISEASE 2.0-3.0 ATRIAL FIBRILLATION 2.0-3.0 MECHANICAL VALVES(HIGH RISK) 2.5-3.5 RECURRENT MYOCARDIAL INFARCTION 2.5-3.5 Prothrombin Time 25.7 s 12.5-14.3 [facility] ([facility] ID Date Data Source [id number] 07/12/2020 07:29:00 AM EDT [facility] Name Value Range Interpretation Code Description Data Sharonda rce(s) Supporting Document(s) Prothrombin Time 25.1 s 12.5-14.3 [facility] Inr 2.22 [facility] ([facility]) THERAPUTIC HUMAN INR VALUES INDICATIONS NORMAL RANGES PROPHYLAXIS/TREATMENT OF: VENOUS THROMBOSIS 2.0-3.0 PULMONARY EMBOLISM 2.0-3.0 PREVENTION OF SYSTEMIC EMBOLISM FROM: TISSUE HEART VALVES 2.0-3.0 ACUTE MYOCARDIAL INFARCTION 2.0-3.0 VALVULAR HEART DISEASE 2.0-3.0 ATRIAL FIBRILLATION 2.0-3.0 MECHANICAL VALVES(HIGH RISK) 2.5-3.5 RECURRENT MYOCARDIAL INFARCTION 2.5-3.5 ID Date Data Source [id number] 06/14/2020 07:48:00 AM EDT [facility] ([facility]) Name Value Range Interpretation Code Description Data Sharonda rce(s) Supporting Document(s) Prothrombin Time 30.2 s 12.5-14.3 [facility] ([facility] Inr 2.81 [facility] THERAPUTIC HUMAN INR VALUES INDICATIONS NORMAL RANGES PROPHYLAXIS/TREATMENT OF: VENOUS THROMBOSIS 2.0-3.0 PULMONARY EMBOLISM 2.0-3.0 PREVENTION OF SYSTEMIC EMBOLISM FROM: TISSUE HEART VALVES 2.0-3.0 ACUTE MYOCARDIAL INFARCTION 2.0-3.0 VALVULAR HEART DISEASE 2.0-3.0 ATRIAL FIBRILLATION 2.0-3.0 MECHANICAL VALVES(HIGH RISK) 2.5-3.5 RECURRENT MYOCARDIAL INFARCTION 2.5-3.5 ID Date Data Source [id number] 05/31/2020 [facility]:05[facility] Name Value Range Interpretation Code Description Data Sharonda rce(s) Supporting Document(s) Prothrombin Time 21.6 s 12.5-14.3 [facility] Inr 1.83 [facility] ([facility]) THERAPUTIC HUMAN INR VALUES INDICATIONS NORMAL RANGES PROPHYLAXIS/TREATMENT OF: VENOUS THROMBOSIS 2.0-3.0 PULMONARY EMBOLISM 2.0-3.0 PREVENTION OF SYSTEMIC EMBOLISM FROM: TISSUE HEART VALVES 2.0-3.0 ACUTE MYOCARDIAL INFARCTION 2.0-3.0 VALVULAR HEART DISEASE 2.0-3.0 ATRIAL FIBRILLATION 2.0-3.0 MECHANICAL VALVES(HIGH RISK) 2.5-3.5 RECURRENT MYOCARDIAL INFARCTION 2.5-3.5 ID Date Data Source [id number] 05/17/2020 07:43:00 AM EDT [facility] Name Value Range Interpretation Code Description Data Sharonda rce(s) Supporting Document(s) Inr 1.48 [facility] ([facility]) THERAPUTIC HUMAN INR VALUES INDICATIONS NORMAL RANGES PROPHYLAXIS/TREATMENT OF: VENOUS THROMBOSIS 2.0-3.0 PULMONARY EMBOLISM 2.0-3.0 PREVENTION OF SYSTEMIC EMBOLISM FROM: TISSUE HEART VALVES 2.0-3.0 ACUTE MYOCARDIAL INFARCTION 2.0-3.0 VALVULAR HEART DISEASE 2.0-3.0 ATRIAL FIBRILLATION 2.0-3.0 MECHANICAL VALVES(HIGH RISK) 2.5-3.5 RECURRENT MYOCARDIAL INFARCTION 2.5-3.5 Prothrombin Time 18.3 s 12.5-14.3 [facility] ([facility]) ID Date Data Source [id number] 05/12/2020 10:53:00 AM EDT [facility] ([facility]) Name Value Range Interpretation Code Description Data Sharonda rce(s) Supporting Document(s) White Blood Count 10.6 [facility] ([facility]) Red Blood Count 4.03 [facility] ([facility]) Hemoglobin 13.6 [facility] ([facility]) Platelets 165 [facility] Hematocrit 41.2 [facility] ([facility]) ID Date Data Source [id number] 05/12/2020 10:53:00 AM EDT [facility] ([facility]) Name Value Range Interpretation Code Description Data Sharonda rce(s) Supporting Document(s) Uric Acid 3.1 [facility] ([facility] ID Date Data Source [id number] 05/12/2020 10:53:00 AM EDT [facility] ([facility]) Name Value Range Interpretation Code Description Data Sharonda rce(s) Supporting Document(s) Glucose 218 [facility] ([facility] Blood Urea Nitrogen 25.1 [facility] (Ca [facility]) Sodium 144.7 [facility] ([facility] [...] Dioxide 29.8 [facility] (Cardiol [facility]gy [facility]) Albumin 3.8 [facility] ([facility] [place]) ID Date Data Source [id number] 04/30/2020 09:33:00 AM EST [facility] [place] Name Value Range Interpretation Code Description Data Sharonda rce(s) Supporting Document(s) Prothrombin Time 21.9 s 12.5-14.3 [facility] ([facility] Inr 1.87 [facility] ([facility]) THERAPUTIC HUMAN INR VALUES INDICATIONS NORMAL RANGES PROPHYLAXIS/TREATMENT OF: VENOUS THROMBOSIS 2.0-3.0 PULMONARY EMBOLISM 2.0-3.0 PREVENTION OF SYSTEMIC EMBOLISM FROM: TISSUE HEART VALVES 2.0-3.0 ACUTE MYOCARDIAL INFARCTION 2.0-3.0 VALVULAR HEART DISEASE 2.0-3.0 ATRIAL FIBRILLATION 2.0-3.0 MECHANICAL VALVES(HIGH RISK) 2.5-3.5 RECURRENT MYOCARDIAL INFARCTION 2.5-3.5 ID Date Data Source [id number] 03/16/2020 01:38:00 PM EST [facility] ([facility] Name Value Range Interpretation Code Description Data Sharonda rce(s) Supporting Document(s) Inr 2.23 MED[facility] ([facility] [place]) THERAPUTIC HUMAN INR VALUES INDICATIONS NORMAL RANGES PROPHYLAXIS/TREATMENT OF: VENOUS THROMBOSIS 2.0-3.0 PULMONARY EMBOLISM 2.0-3.0 PREVENTION OF SYSTEMIC EMBOLISM FROM: TISSUE HEART VALVES 2.0-3.0 ACUTE MYOCARDIAL INFARCTION 2.0-3.0 VALVULAR HEART DISEASE 2.0-3.0 ATRIAL FIBRILLATION 2.0-3.0 MECHANICAL VALVES(HIGH RISK) 2.5-3.5 RECURRENT MYOCARDIAL INFARCTION 2.5-3.5 Prothrombin Time 25.2 s 12.5-14.3 [facility] ([facility] Date Data Source [id number] 03/04/2020 08:35:00 AM EST [facility] ([facility] Name Value Range Interpretation Code Description Data Sharonda rce(s) Supporting Document(s) Prothrombin Time 32.9 s 12.5-14.3 [facility] ([facility] Inr 3.13 [facility] (Cardiology [facility]) THERAPUTIC HUMAN INR VALUES INDICATIONS NORMAL RANGES PROPHYLAXIS/TREATMENT OF: VENOUS THROMBOSIS 2.0-3.0 PULMONARY EMBOLISM 2.0-3.0 PREVENTION OF SYSTEMIC EMBOLISM FROM: TISSUE HEART VALVES 2.0-3.0 ACUTE MYOCARDIAL INFARCTION 2.0-3.0 VALVULAR HEART DISEASE 2.0-3.0 ATRIAL FIBRILLATION 2.0-3.0 MECHANICAL VALVES(HIGH RISK) 2.5-3.5 RECURRENT MYOCARDIAL INFARCTION 2.5-3.5 ID Date Data Source [id number] 02/05/2020 08:37:00 AM EST [facility] Name Value Range Interpretation Code Description Data Sahronda rce(s) Supporting Document(s) Cholesterol Level 73 mg/dL [facility] ([facility]) Triglycerides Level 139 mg/dL [facility] ([facility]) HDL Cholesterol 25 mg/dL [facility] ([facility]) LDL Cholesterol 20 mg/dL [facility] ([facility]) Cholesterol Risk Ratio 2.920 [facility] ([facility]) Non-HDL-C 48 mg/dL [facility] ID Date Data Source [id number] 02/05/2020 08:37:00 AM EST [facility] ([facility]) Name Value Range Interpretation Code Description Data Sharonda rce(s) Supporting Document(s) Glucose, Fasting 247 mg/dL 70-100 [facility] ([facility]) Blood Urea Nitrogen 31 mg/dL 7-18 [facility] ([facility]) Creatinine For GFR 2.08 mg/dL 0.70-1.30 [facility] ([facility]) Glomerular Filtration Rate 33.0 MED ENT ([facility]) <content>Units are mL/min/1.73 m2</content>
<content></content>
<content>Chronic Kidney Disease Staging per NKF:</content>
<content></content>
<content>Stage I & II GFR >=60 Normal to Mildly Decreased</content>
<content>Stage III GFR 30-59 Moderately Decreased</content>
<content>Stage IV GFR 15-29 Severely Decreased</content>
<content>Stage V GFR <15 Very Little GFR Left</content>
<content>ESRD GFR <15 on COLOR FINISHER</content>
<content></content> Sodium Level 141 meq/L 136-145 [facility] ([facility]) Chloride Level 107 meq/L 98-107 [facility] ([facility]) Potassium Serum 4.5 meq/L 3.5-5.1 [facility] ([facility]) Carbon Dioxide Level 29 meq/L 21-32 [facility] ([facility]) Anion Gap 5 meq/L 8-16 [facility] ([facility]) Ast/Sgot 26 U/L 7-37 [facility] ([facility]) Calcium Level 8.8 mg/dL 8.8-10.2 [facility] ([facility]) Alkaline Phosphatase 80 U/L 45-117 [facility] ([facility]) Alt/SGPT 42 U/L 12-78 [facility] ([facility] Total Protein 7.1 GM/DL 6.4-8.2 [facility] ([facility]) Bilirubin,Total 0.7 mg/dL 0.2-1.0 [facility] ([facility]) Albumin 3.3 GM/DL 3.2-5.2 [facility] ([facility]) Albumin/Globulin Ratio 0.9 [facility] ([facility]) ID Date Data Source [id number] 02/05/2020 08:37:00 AM EST [facility] ([facility]) Name Value Range Interpretation Code Description Data Sharonda rce(s) Supporting Document(s) Inr 2.71 [facility] ([facility] THERAPUTIC HUMAN INR VALUES INDICATIONS NORMAL RANGES PROPHYLAXIS/TREATMENT OF: VENOUS THROMBOSIS 2.0-3.0 PULMONARY EMBOLISM 2.0-3.0 PREVENTION OF SYSTEMIC EMBOLISM FROM: TISSUE HEART VALVES 2.0-3.0 ACUTE MYOCARDIAL INFARCTION 2.0-3.0 VALVULAR HEART DISEASE 2.0-3.0 ATRIAL FIBRILLATION 2.0-3.0 MECHANICAL VALVES(HIGH RISK) 2.5-3.5 RECURRENT MYOCARDIAL INFARCTION 2.5-3.5 Prothrombin Time 29.4 s 12.5-14.3 [facility] ([facility] Date Data Source [id number] 01/07/2020 08:04:00 AM EST [facility] ([facility] Name Value Range Interpretation Code Description Data Sharonda rce(s) Supporting Document(s) Inr 2.24 [facility] ([facility]) THERAPUTIC HUMAN INR VALUES INDICATIONS NORMAL RANGES PROPHYLAXIS/TREATMENT OF: VENOUS THROMBOSIS 2.0-3.0 PULMONARY EMBOLISM 2.0-3.0 PREVENTION OF SYSTEMIC EMBOLISM FROM: TISSUE HEART VALVES 2.0-3.0 ACUTE MYOCARDIAL INFARCTION 2.0-3.0 VALVULAR HEART DISEASE 2.0-3.0 ATRIAL FIBRILLATION 2.0-3.0 MECHANICAL VALVES(HIGH RISK) 2.5-3.5 RECURRENT MYOCARDIAL INFARCTION 2.5-3.5 Prothrombin Time 25.3 s 12.5-14.3 [facility] ([facility] ID Date Data Source [id number] 12/09/2019 08:57:00 AM EDT [facility] ([facility]) Name Value Range Interpretation Code Description Data Sharonda rce(s) Supporting Document(s) Prothrombin Time 24.4 s 12.5-14.3 [facility] ([facility] Inr 2.14 [facility] ([facility]) THERAPUTIC HUMAN INR VALUES INDICATIONS [...] Patient is a former smoker MED[facility] (Cardiology [facility]) Vital Signs ID Date Data Source [id number] Name Value Range Interpretation Code Description Data Source(s) Body weight 218.00 [lb_av] 218.00 [lb_av] MEDEN T (Cardiology [facility]) Heart rate 56 /min 56 /min [facility] ([facility]) Regular Respiratory rate 16 /min 16 /min [facility] ( [facility]) Systolic blood pressure 126 mm[Hg] 126 mm[Hg] M EDENT ([facility]) sitting, regular cuff Systolic blood pressure 126 mm[Hg] 126 mm[Hg] M EDENT ([facility]) sitting Diastolic blood pressure 60 mm[Hg] 60 mm[Hg] [facility] ([facility]) sitting Diastolic blood pressure 64 mm[Hg] 64 mm[Hg] [facility] ([facility]) sitting, regular cuff Body height 72 [in_i] 72 [in_i] [facility] ([facility]) 6'0" Body mass index (BMI) [Ratio] 29.6 kg/m2 29.6 k g/m2 [facility] ([facility]) Body weight 223.00 [lb_av] 223.00 [lb_av] MEDEN T ([facility]) Body height 72 [in_i] 72 [in_i] [facility] ([facility]) 6'0" Body mass index (BMI) [Ratio] 30.2 kg/m2 30.2 k g/m2 [facility] ([facility]) Heart rate 52 /min 52 /min [facility] ([facility]) Regular Systolic blood pressure 128 mm[Hg] 128 mm[Hg] M EDENT ([facility]) sitting, regular cuff Systolic blood pressure 128 mm[Hg] 128 mm[Hg] M EDENT ([facility]) sitting Diastolic blood pressure 72 mm[Hg] 72 mm[Hg] [facility] ([facility]) sitting Respiratory rate 16 /min 16 /min MED[facility] ( [facility]) Diastolic blood pressure 76 mm[Hg] 76 mm[Hg] [facility] ([facility]) sitting, regular cuff
== END 2021-01-21 14:12 | disposition left against medical advice (07) ==
LOC: M ED 10:56
DX: Z53.21 Procedure and treatment not carried out due to patient leaving prior to being seen by health care provider (principal)

== ENCOUNTER → 2021-01-25 | Outpatient (CLI) | payer MEDICARE, BC ==
[~2021-01-25] MED LIST changes: +BYST5TAB2 PO; +CEFD300C41 PO; +CLON1TAB8 PO; +COMPTAB7 PO; +DOXA1TAB41 PO; +DOXY-350 PO; -FEBU40TA2; +FEBU40TA2 PO; +FERR324T2 PO; +JARD1TAB PO; +LEXA1TAB PO; +MELA5CAP2 PO; +REPA1TAB4 PO; +SERO1TAB PO; +VITATAB73 PO; +WARF4TAB51 PO
[2021-01-25 08:43] LABS: INR 4.85; PROTHROMBIN TIME 45.4 SECONDS (12.7-14.5)
== END ==
LOC: M LAB 07:39
PROVIDERS: ATTEND Physician Assistant
DX: Z86.711 Personal history of pulmonary embolism (principal)

== ENCOUNTER → 2021-01-27 | Outpatient (CLI) | payer MEDICARE, BC ==
[~2021-01-27] MED LIST changes: +CEFD1CAP8 PO; -CEFD300C41 PO
[2021-01-27 09:12] LABS: INR 4.45; PROTHROMBIN TIME 42.5 SECONDS (12.7-14.5)
== END ==
LOC: M LAB 08:17
PROVIDERS: ATTEND Physician Assistant
DX: Z86.711 Personal history of pulmonary embolism (principal)

== ENCOUNTER 2021-01-30 11:29 | Inpatient (IN) | payer MEDICARE, BC ==
[2021-01-30] VITALS (11 sets, daily range): BP systolic 102–141; BP diastolic 33–70
[~2021-01-30] VITALS: Ht 182.9 cm; Wt 103.5 kg
[~2021-01-30 11:29] MED LIST changes: -BYST5TAB2 PO; -CEFD1CAP8 PO; -CLON1TAB8 PO; -COMPTAB7 PO; -DOXA1TAB41 PO; -DOXY-350 PO; -FERR324T2 PO; -JARD1TAB PO; -LEXA1TAB PO; -MELA5CAP2 PO; -REPA1TAB4 PO; -SERO1TAB PO; -VITATAB73 PO
[2021-01-30 12:06] LABS: VENOUS BASE EXCESS -6.6 (-2.0-2.0); VENOUS HCO3 19.4 MEQ/L (23.0-27.0); VENOUS O2 SATURATION 66.6 % (60.0-80.0); VENOUS PARTIAL PRESSURE CO2 41.1 mmHg (38.0-50.0); VENOUS PARTIAL PRESSURE O2 38.4 mmHg (30.0-50.0); VENOUS PH 7.292 UNITS (7.330-7.430); VENOUS STANDARD HCO3 18.6 MEQ/L; VENOUS TOTAL CO2 20.7 MEQ/L (24.0-28.0)
[2021-01-30] MEDS ORDERED: SERO1TAB PO (12:06)
[2021-01-30] MEDS ORDERED: BYST5TAB2 PO (12:06)
[2021-01-30] MEDS ORDERED: FERR324T2 PO (12:06)
[2021-01-30] MEDS ORDERED: COMPTAB7 PO (12:06)
[2021-01-30] MEDS ORDERED: DOXA1TAB41 PO (12:06)
[2021-01-30] MEDS ORDERED: REPA1TAB4 PO (12:06)
[2021-01-30] MEDS ORDERED: JARD1TAB PO (12:06)
[2021-01-30 12:10] LABS: HEMATOCRIT 22.9 % (42.0-52.0); MEAN CORPUSCULAR HEMOGLOBIN 35.4 pg (27.0-33.0); MEAN CORPUSCULAR HGB CONC 29.7 g/dl (32.0-36.5); PLATELET COUNT, AUTOMATED 179 10^3/uL (150-450); RED BLOOD COUNT 1.92 10^6/uL (4.30-6.10)
[2021-01-30 12:14] LABS: MEAN CORPUSCULAR VOLUME 119.3 fl (80.0-96.0)
[2021-01-30 12:15] LABS: HEMOGLOBIN 6.8 g/dl (13.5-17.5); WHITE BLOOD COUNT 84.5 10^3/uL (4.0-10.0)
[2021-01-30 12:36] LABS: EOSINOPHILS 1 % (0-3); LYMPHOCYTES 6 % (16-44); METAMYELOCYTES 2 % (0-0); MONOCYTES 49 % (0-5); MYELOCYTES 4 % (0-0); NEUTROPHILS 37 % (28-66)
[2021-01-30 12:38] LABS: PLATELET ESTIMATE NORMAL (NORMAL)
[2021-01-30 12:39] LABS: POLYCHROMASIA 1+; STOMATOCYTES 1+
[2021-01-30 12:41] LABS: ANISOCYTOSIS 2+
[2021-01-30 12:42] LABS: ALBUMIN 2.9 GM/DL (3.2-5.2); BILIRUBIN,DIRECT 0.2 MG/DL (0.0-0.2); BILIRUBIN,TOTAL 0.5 MG/DL (0.2-1.0); CALCIUM LEVEL 7.7 MG/DL (8.8-10.2); CREATININE FOR GFR 3.45 MG/DL (0.70-1.30); GLOMERULAR FILTRATION RATE 18.3 (>35); POTASSIUM SERUM 4.9 MEQ/L (3.5-5.1); THYROID STIMULATING HORMONE 3.87 uIU/ML (0.358-3.740); THYROXINE (T4) 8.1 UG/DL (4.5-12.0); TOTAL PROTEIN 7.3 GM/DL (6.4-8.2)
[2021-01-30] MEDS ORDERED: cefTRIAXone SOD 2 GM in D5W MINI-BAG PLUS 50 ML IV ONE (14:00)
[2021-01-30] MEDS ORDERED: AZITHROMYCIN INJ 500 MG, VIAL MATE ADAPTER 1 EACH in NS 250 ML IV ONE (15:00)
[2021-01-30] MEDS ORDERED: GLUCOSE 4GM CHEW TABLET PO PRN (15:25)
[2021-01-30] MEDS ORDERED: GLUCAGON INJ 1MG VIAL SC PRN (15:25)
[2021-01-30] MEDS ORDERED: DEXTROSE 50% 50 ML SYRINGE IV PRN (15:25)
[2021-01-30 15:32] LABS: PERCENT SATURATION 28.6 % (19.7-50.0)
[2021-01-30] MEDS ORDERED: IPRATROPIUM 0.5MG/ALBUTEROL 2.5MG INH SOL UD 3ML (DUONEB) NEB PRN (15:35)
[2021-01-30] MEDS ORDERED: WARF-23 PO (15:46)
[2021-01-30] MEDS ORDERED: VITATAB73 PO (15:46)
[2021-01-30] MEDS ORDERED: HOME MED LIST COMPLETE! XX SCH (15:50)
[2021-01-30 15:55] LABS: INR 2.32; PROTHROMBIN TIME 25.8 SECONDS (12.7-14.5)
[2021-01-30 15:56] LABS: PARTIAL THROMBOPLASTIN TIME 49.5 SECONDS (25.9-37.0)
[2021-01-30] MEDS: GASTROGRAFIN SOLUTION 30ML PO SCH ×2 (18:01→18:41)
[2021-01-30] MEDS: HumaLOG INSULIN (NovoLOG) PER UNIT SC SCH ×2 (18:54→20:42)
[2021-01-30] MEDS: QUEtiapine FUMARATE 100 MG TAB PO SCH (20:42)
[2021-01-30] MEDS: RAMELTEON 8 MG TAB (ROZEREM) PO SCH (20:43)
[2021-01-30] MEDS: ATORVASTATIN 20 MG TAB PO SCH (20:43)
[2021-01-31] VITALS (10 sets, daily range): BP systolic 93–144; BP diastolic 34–58
[2021-01-31 00:49] LABS: BASO # 0.4 10^3/uL (0.0-0.2); BASO % 0.6 % (0.0-1.0); EOS # 0.9 10^3/uL (0.0-0.5); EOS % 1.2 % (0.0-3.0); HEMATOCRIT 25.4 % (42.0-52.0); HEMOGLOBIN 7.9 g/dl (13.5-17.5); LYMPH # 3.6 10^3/uL (1.5-5.0); LYMPH % 5.2 % (24.0-44.0); MEAN CORPUSCULAR HEMOGLOBIN 32.5 pg (27.0-33.0); MEAN CORPUSCULAR HGB CONC 31.1 g/dl (32.0-36.5); MEAN CORPUSCULAR VOLUME 104.5 fl (80.0-96.0); MONO # 39.7 10^3/uL (0.0-0.8); MONO % 56.6 % (2.0-8.0); NEUTROPHILS # 21.4 10^3/uL (1.5-8.5); NEUTROPHILS % 30.7 % (36.0-66.0); PLATELET COUNT, AUTOMATED 158 10^3/uL (150-450); RED BLOOD COUNT 2.43 10^6/uL (4.30-6.10)
[2021-01-31] MEDS ORDERED: diphenhydrAMINE 25MG CAP PO ONE (01:15)
[2021-01-31] MEDS ORDERED: ACETAMINOPHEN TAB 650MG DOSE (2X325MG) PO ONE (01:15)
[2021-01-31 06:50] LABS: BASO # 0.3 10^3/uL (0.0-0.2); BASO % 0.5 % (0.0-1.0); EOS # 0.8 10^3/uL (0.0-0.5); EOS % 1.2 % (0.0-3.0); HEMATOCRIT 29.6 % (42.0-52.0); HEMOGLOBIN 9.1 g/dl (13.5-17.5); LYMPH # 3.2 10^3/uL (1.5-5.0); MEAN CORPUSCULAR HEMOGLOBIN 32.5 pg (27.0-33.0); MEAN CORPUSCULAR HGB CONC 30.7 g/dl (32.0-36.5); MEAN CORPUSCULAR VOLUME 105.7 fl (80.0-96.0); MONO # 37.4 10^3/uL (0.0-0.8); MONO % 59.2 % (2.0-8.0); NEUTROPHILS % 28.6 % (36.0-66.0); PLATELET COUNT, AUTOMATED 142 10^3/uL (150-450)
[2021-01-31 06:53] LABS: WHITE BLOOD COUNT 63.2 10^3/uL (4.0-10.0)
[2021-01-31 06:59] LABS: INR 2.07; PROTHROMBIN TIME 23.7 SECONDS (12.7-14.5)
[2021-01-31 07:23] LABS: ALBUMIN 2.5 GM/DL (3.2-5.2); CALCIUM LEVEL 7.3 MG/DL (8.8-10.2); CREATININE FOR GFR 3.24 MG/DL (0.70-1.30); GLOMERULAR FILTRATION RATE 19.7 (>35); PHOSPHORUS LEVEL 4.7 MG/DL (2.5-4.9); POTASSIUM SERUM 5.4 MEQ/L (3.5-5.1)
[2021-01-31] MEDS: CALCITRIOL 0.25 MCG CAP (S0169) PO SCH (08:47)
[2021-01-31] MEDS: FEBUXOSTAT 40 MG TABLET (ULORIC) PO SCH (08:47)
[2021-01-31] MEDS: DOXAZOSIN MESYLATE 1 MG TAB PO SCH (08:48)
[2021-01-31] MEDS: NEBIVOLOL 5 MG TAB (BYSTOLIC) PO SCH (08:48)
[2021-01-31] MEDS: HumaLOG INSULIN (NovoLOG) PER UNIT SC SCH ×4 (08:49→20:09)
[2021-01-31] MEDS ORDERED: K-PHOS NEUTRAL 250MG TABLET (SOD.PHOSPHATE/POT.PHOSPHATE) PO SCH (09:00)
[2021-01-31] MEDS: cefTRIAXone SOD 1 GM in D5W MINI-BAG PLUS 50 ML IV SCH (15:46)
[2021-01-31] MEDS: AZITHROMYCIN INJ 500 MG, VIAL MATE ADAPTER 1 EACH in NS 250 ML IV SCH (17:29)
[2021-01-31 19:39] LABS: CALCIUM LEVEL 8.4 MG/DL (8.8-10.2); CREATININE FOR GFR 3.04 MG/DL (0.70-1.30); GLOMERULAR FILTRATION RATE 21.2 (>35); POTASSIUM SERUM 5.2 MEQ/L (3.5-5.1)
[2021-01-31] MEDS: ATORVASTATIN 20 MG TAB PO SCH (20:31)
[2021-01-31] MEDS: RAMELTEON 8 MG TAB (ROZEREM) PO SCH (20:31)
[2021-01-31] MEDS: QUEtiapine FUMARATE 100 MG TAB PO SCH (20:31)
[2021-01-31] MEDS ORDERED: SOD POLYSTYRENE SULFONATE SUSP 15 GM/60 ML UD PO ONE (22:00)
[2021-02-01 06:00] VITALS: BP 144/58
[2021-02-01 07:27] LABS: BASO # 0.5 10^3/uL (0.0-0.2); BASO % 0.7 % (0.0-1.0); EOS # 0.9 10^3/uL (0.0-0.5); EOS % 1.2 % (0.0-3.0); HEMATOCRIT 28.6 % (42.0-52.0); HEMOGLOBIN 8.9 g/dl (13.5-17.5); LYMPH # 2.9 10^3/uL (1.5-5.0); LYMPH % 3.8 % (24.0-44.0); MEAN CORPUSCULAR HEMOGLOBIN 32.5 pg (27.0-33.0); MEAN CORPUSCULAR HGB CONC 31.1 g/dl (32.0-36.5); MEAN CORPUSCULAR VOLUME 104.4 fl (80.0-96.0); MONO # 48.2 10^3/uL (0.0-0.8); MONO % 63.4 % (2.0-8.0); NEUTROPHILS # 19.9 10^3/uL (1.5-8.5); NEUTROPHILS % 26.2 % (36.0-66.0); PLATELET COUNT, AUTOMATED 141 10^3/uL (150-450); RED BLOOD COUNT 2.74 10^6/uL (4.30-6.10)
[2021-02-01 07:39] LABS: INR 1.79; PROTHROMBIN TIME 21.2 SECONDS (12.7-14.5)
[2021-02-01 07:58] LABS: ALBUMIN 2.4 GM/DL (3.2-5.2); CALCIUM LEVEL 8.2 MG/DL (8.8-10.2); CREATININE FOR GFR 2.9 MG/DL (0.70-1.30); GLOMERULAR FILTRATION RATE 22.4 (>35); PHOSPHORUS LEVEL 3.9 MG/DL (2.5-4.9); POTASSIUM SERUM 4.6 MEQ/L (3.5-5.1)
[2021-02-01] MEDS: FEBUXOSTAT 40 MG TABLET (ULORIC) PO SCH (08:51)
[2021-02-01] MEDS: HumaLOG INSULIN (NovoLOG) PER UNIT SC SCH ×4 (08:51→20:54)
[2021-02-01] MEDS: CALCITRIOL 0.25 MCG CAP (S0169) PO SCH (08:51)
[2021-02-01] MEDS: DOXAZOSIN MESYLATE 1 MG TAB PO SCH (08:54)
[2021-02-01] MEDS: NEBIVOLOL 5 MG TAB (BYSTOLIC) PO SCH (08:54)
[2021-02-01 14:00] VITALS: BP 121/48
[2021-02-01] MEDS: cefTRIAXone SOD 1 GM in D5W MINI-BAG PLUS 50 ML IV SCH (15:45)
[2021-02-01] MEDS: AZITHROMYCIN INJ 500 MG, VIAL MATE ADAPTER 1 EACH in NS 250 ML IV SCH (16:45)
[2021-02-01] MEDS: ATORVASTATIN 20 MG TAB PO SCH (21:12)
[2021-02-01] MEDS: RAMELTEON 8 MG TAB (ROZEREM) PO SCH (21:12)
[2021-02-01] MEDS: QUEtiapine FUMARATE 100 MG TAB PO SCH (21:12)
[2021-02-01 22:00] VITALS: BP 143/69
[2021-02-02 06:00] VITALS: BP 117/48
[2021-02-02] MEDS: FEBUXOSTAT 40 MG TABLET (ULORIC) PO SCH (08:05)
[2021-02-02] MEDS: CALCITRIOL 0.25 MCG CAP (S0169) PO SCH (08:05)
[2021-02-02] MEDS: NEBIVOLOL 5 MG TAB (BYSTOLIC) PO SCH (08:05)
[2021-02-02] MEDS: DOXAZOSIN MESYLATE 1 MG TAB PO SCH (08:05)
[2021-02-02 08:08] LABS: BASO # 0.5 10^3/uL (0.0-0.2); BASO % 0.9 % (0.0-1.0); EOS % 1.8 % (0.0-3.0); HEMATOCRIT 28.5 % (42.0-52.0); HEMOGLOBIN 8.7 g/dl (13.5-17.5); LYMPH # 2.9 10^3/uL (1.5-5.0); MEAN CORPUSCULAR HEMOGLOBIN 32.7 pg (27.0-33.0); MEAN CORPUSCULAR HGB CONC 30.5 g/dl (32.0-36.5); MEAN CORPUSCULAR VOLUME 107.1 fl (80.0-96.0); MONO # 35.6 10^3/uL (0.0-0.8); MONO % 61.9 % (2.0-8.0); NEUTROPHILS # 14.7 10^3/uL (1.5-8.5); NEUTROPHILS % 25.5 % (36.0-66.0); PLATELET COUNT, AUTOMATED 131 10^3/uL (150-450); RED BLOOD COUNT 2.66 10^6/uL (4.30-6.10)
[2021-02-02] MEDS: HumaLOG INSULIN (NovoLOG) PER UNIT SC SCH ×4 (08:08→20:43)
[2021-02-02 08:12] VITALS: BP 143/63
[2021-02-02 08:13] LABS: WHITE BLOOD COUNT 57.5 10^3/uL (4.0-10.0)
[2021-02-02 08:15] LABS: INR 1.59; PROTHROMBIN TIME 19.4 SECONDS (12.7-14.5)
[2021-02-02 08:37] LABS: ALBUMIN 2.2 GM/DL (3.2-5.2); CREATININE FOR GFR 2.79 MG/DL (0.70-1.30); GLOMERULAR FILTRATION RATE 23.4 (>35); PHOSPHORUS LEVEL 3.6 MG/DL (2.5-4.9); URIC ACID 7.9 MG/DL (3.5-7.2)
[2021-02-02] MEDS ORDERED: LIDOCAINE 1% MDV 20ML VIAL As Ordered ONE (10:13)
[2021-02-02 11:44] VITALS: BP 139/69
[2021-02-02 14:00] VITALS: BP 149/59
[2021-02-02] MEDS: cefTRIAXone SOD 1 GM in D5W MINI-BAG PLUS 50 ML IV SCH (15:07)
[2021-02-02] MEDS ORDERED: CALCIUM CARBONATE 500 MG CHEW U/D PO PRN (20:00)
[2021-02-02] MEDS: QUEtiapine FUMARATE 100 MG TAB PO SCH (20:24)
[2021-02-02] MEDS: ATORVASTATIN 20 MG TAB PO SCH (20:24)
[2021-02-02] MEDS: RAMELTEON 8 MG TAB (ROZEREM) PO SCH (20:24)
[2021-02-02 22:00] VITALS: BP 154/69
[2021-02-03 06:00] VITALS: BP 116/47
[2021-02-03 08:00] VITALS: BP 149/66
[2021-02-03] MEDS ORDERED: FUROSEMIDE 20MG/2ML VIAL (J1940) IV ONE (08:15)
[2021-02-03 08:20] LABS: BASO # 0.5 10^3/uL (0.0-0.2); BASO % 1.2 % (0.0-1.0); EOS % 2.3 % (0.0-3.0); HEMATOCRIT 29.6 % (42.0-52.0); HEMOGLOBIN 8.9 g/dl (13.5-17.5); LYMPH # 2.6 10^3/uL (1.5-5.0); LYMPH % 5.9 % (24.0-44.0); MEAN CORPUSCULAR HEMOGLOBIN 32.2 pg (27.0-33.0); MEAN CORPUSCULAR HGB CONC 30.1 g/dl (32.0-36.5); MEAN CORPUSCULAR VOLUME 107.2 fl (80.0-96.0); MONO # 25.6 10^3/uL (0.0-0.8); MONO % 57.9 % (2.0-8.0); NEUTROPHILS # 12.1 10^3/uL (1.5-8.5); NEUTROPHILS % 27.3 % (36.0-66.0); PLATELET COUNT, AUTOMATED 118 10^3/uL (150-450); RED BLOOD COUNT 2.76 10^6/uL (4.30-6.10)
[2021-02-03 08:22] LABS: WHITE BLOOD COUNT 44.1 10^3/uL (4.0-10.0)
[2021-02-03 08:26] LABS: INR 1.48; PROTHROMBIN TIME 18.4 SECONDS (12.7-14.5)
[2021-02-03] MEDS: HumaLOG INSULIN (NovoLOG) PER UNIT SC SCH ×4 (08:27→20:39)
[2021-02-03 08:45] LABS: ALBUMIN 2.1 GM/DL (3.2-5.2); CALCIUM LEVEL 8.2 MG/DL (8.8-10.2); CREATININE FOR GFR 2.48 MG/DL (0.70-1.30); GLOMERULAR FILTRATION RATE 26.8 (>35); PHOSPHORUS LEVEL 3.6 MG/DL (2.5-4.9)
[2021-02-03] MEDS: FEBUXOSTAT 40 MG TABLET (ULORIC) PO SCH (08:59)
[2021-02-03] MEDS: CALCITRIOL 0.25 MCG CAP (S0169) PO SCH (09:00)
[2021-02-03] MEDS: NEBIVOLOL 5 MG TAB (BYSTOLIC) PO SCH (09:01)
[2021-02-03] MEDS: DOXAZOSIN MESYLATE 1 MG TAB PO SCH (09:01)
[2021-02-03 14:00] VITALS: BP 148/65
[2021-02-03] MEDS: cefTRIAXone SOD 1 GM in D5W MINI-BAG PLUS 50 ML IV SCH (16:33)
[2021-02-03] MEDS ORDERED: WARFARIN SOD 2.5MG TAB PO SCH (17:00)
[2021-02-03] MEDS: RAMELTEON 8 MG TAB (ROZEREM) PO SCH (20:59)
[2021-02-03] MEDS: QUEtiapine FUMARATE 100 MG TAB PO SCH (21:00)
[2021-02-03] MEDS: ATORVASTATIN 20 MG TAB PO SCH (21:00)
[2021-02-03 22:00] VITALS: BP 147/64
[2021-02-04 06:00] VITALS: BP 155/75
[2021-02-04 08:01] LABS: BASO # 0.5 10^3/uL (0.0-0.2); BASO % 1.1 % (0.0-1.0); EOS # 1.1 10^3/uL (0.0-0.5); EOS % 2.3 % (0.0-3.0); HEMATOCRIT 27.9 % (42.0-52.0); HEMOGLOBIN 8.6 g/dl (13.5-17.5); LYMPH % 6.4 % (24.0-44.0); MEAN CORPUSCULAR HEMOGLOBIN 32.7 pg (27.0-33.0); MEAN CORPUSCULAR HGB CONC 30.8 g/dl (32.0-36.5); MEAN CORPUSCULAR VOLUME 106.1 fl (80.0-96.0); MONO % 53.7 % (2.0-8.0); NEUTROPHILS # 14.3 10^3/uL (1.5-8.5); NEUTROPHILS % 30.6 % (36.0-66.0); PLATELET COUNT, AUTOMATED 121 10^3/uL (150-450); RED BLOOD COUNT 2.63 10^6/uL (4.30-6.10)
[2021-02-04 08:06] LABS: WHITE BLOOD COUNT 46.6 10^3/uL (4.0-10.0)
[2021-02-04 08:13] LABS: INR 1.54; PROTHROMBIN TIME 18.9 SECONDS (12.7-14.5)
[2021-02-04 08:23] LABS: ALBUMIN 2.3 GM/DL (3.2-5.2); CALCIUM LEVEL 8.2 MG/DL (8.8-10.2); CREATININE FOR GFR 2.36 MG/DL (0.70-1.30); GLOMERULAR FILTRATION RATE 28.4 (>35); PHOSPHORUS LEVEL 3.1 MG/DL (2.5-4.9); POTASSIUM SERUM 4.7 MEQ/L (3.5-5.1)
[2021-02-04] MEDS: CALCITRIOL 0.25 MCG CAP (S0169) PO SCH (09:29)
[2021-02-04] MEDS: HumaLOG INSULIN (NovoLOG) PER UNIT SC SCH ×2 (09:29→13:46)
[2021-02-04] MEDS: FEBUXOSTAT 40 MG TABLET (ULORIC) PO SCH (09:29)
[2021-02-04 09:30] VITALS: BP 131/55
[2021-02-04] MEDS: NEBIVOLOL 5 MG TAB (BYSTOLIC) PO SCH (09:30)
[2021-02-04] MEDS: DOXAZOSIN MESYLATE 1 MG TAB PO SCH (10:34)
[2021-02-04] MEDS ORDERED: MELA5CAP2 PO (11:20)
[2021-02-04] MEDS ORDERED: CEFD300C41 PO (11:47)
[2021-02-04] MEDS ORDERED: DOXY-350 PO (11:47)
[2021-02-04 14:00] VITALS: BP 142/57
[2021-02-04] MEDS: cefTRIAXone SOD 1 GM in D5W MINI-BAG PLUS 50 ML IV SCH (14:58)
[2021-02-14] MEDS ORDERED: CLON1TAB8 PO (13:31)
== END 2021-02-04 15:48 | disposition home or self-care (01) | DRG 811 ==
LOC: M ED 11:29 → M ED INP 14:53 → ENRESERV 16:20 → M MSPAV 17:46
PROVIDERS: ADMIT Internal Medicine; ATTEND Internal Medicine
PROC: 30233N1 Transfusion of Nonautologous Red Blood Cells into Peripheral Vein, Percutaneous Approach (ICD-10-PCS; 2021-01-30)
PROC: 07DR3ZX Extraction of Iliac Bone Marrow, Percutaneous Approach, Diagnostic (ICD-10-PCS; principal; 2021-02-03)
DX: D64.9 Anemia, unspecified (principal); J18.9 Pneumonia, unspecified organism; J96.91 Respiratory failure, unspecified with hypoxia; E11.22 Type 2 diabetes mellitus with diabetic chronic kidney disease; G47.00 Insomnia, unspecified; R26.89 Other abnormalities of gait and mobility; Z79.01 Long term (current) use of anticoagulants; Z79.899 Other long term (current) drug therapy; Z88.2 Allergy status to sulfonamides; Z88.5 Allergy status to narcotic agent; Z88.8 Allergy status to other drugs, medicaments and biological substances; Z98.41 Cataract extraction status, right eye; Z98.42 Cataract extraction status, left eye; E78.5 Hyperlipidemia, unspecified; I12.9 Hypertensive chronic kidney disease with stage 1 through stage 4 chronic kidney disease, or unspecified chronic kidney disease; J44.9 Chronic obstructive pulmonary disease, unspecified; K21.9 Gastro-esophageal reflux disease without esophagitis; F41.9 Anxiety disorder, unspecified; Z90.49 Acquired absence of other specified parts of digestive tract; Z87.891 Personal history of nicotine dependence; Z86.711 Personal history of pulmonary embolism; Z86.718 Personal history of other venous thrombosis and embolism; N40.0 Benign prostatic hyperplasia without lower urinary tract symptoms; M10.9 Gout, unspecified; D72.829 Elevated white blood cell count, unspecified; M18.30 Unilateral post-traumatic osteoarthritis of first carpometacarpal joint, unspecified hand

== ENCOUNTER → 2021-02-07 | Outpatient (CLI) | payer MEDICARE, BC ==
[~2021-02-07] MED LIST changes: +BYST5TAB2 PO; +CEFD1CAP8 PO; +COMPTAB7 PO; +DOXA1TAB41 PO; +DOXY-350 PO; +FERR324T2 PO; +JARD1TAB PO; +MELA5CAP2 PO; +REPA1TAB4 PO; +SERO1TAB PO; +VITATAB73 PO
[2021-02-07 14:54] LABS: INR 1.86; PROTHROMBIN TIME 21.8 SECONDS (12.7-14.5)
== END ==
LOC: M LAB 12:56
PROVIDERS: ATTEND Physician Assistant
DX: Z86.711 Personal history of pulmonary embolism (principal); Z79.01 Long term (current) use of anticoagulants

== ENCOUNTER → 2021-02-14 | Outpatient (CLI) | payer MEDICARE, BC ==
[~2021-02-14] MED LIST changes: -CEFD1CAP8 PO; +CEFD300C41 PO; +CLON1TAB8 PO; +LEXA1TAB PO
[2021-02-14 10:23] LABS: ALBUMIN 3.2 GM/DL (3.2-5.2); ALT/SGPT 24 U/L (12-78); BILIRUBIN,TOTAL 0.7 MG/DL (0.2-1.0); BLOOD UREA NITROGEN 28 MG/DL (7-18); CALCIUM LEVEL 8.7 MG/DL (8.8-10.2); CARBON DIOXIDE LEVEL 26 MEQ/L (21-32); CHLORIDE LEVEL 117 MEQ/L (98-107); CHOLESTEROL LEVEL < 50 MG/DL (<200); CREATININE FOR GFR 3.19 MG/DL (0.70-1.30); GLOMERULAR FILTRATION RATE 20.1 (>35); GLUCOSE, FASTING 157 MG/DL (70-100); HDL CHOLESTEROL 8 MG/DL (>40); LDL CHOLESTEROL 22 MG/DL (<100); NON-HDL-C 42 MG/DL; POTASSIUM SERUM 4.9 MEQ/L (3.5-5.1); SODIUM LEVEL 147 MEQ/L (136-145); TOTAL PROTEIN 7.4 GM/DL (6.4-8.2); TRIGLYCERIDES LEVEL 101 MG/DL (<150)
== END ==
LOC: M LAB 08:24
PROVIDERS: ATTEND Physician Assistant
DX: E78.2 Mixed hyperlipidemia (principal)

== ENCOUNTER 2021-02-16 10:37 | Observation (INO) | payer MEDICARE, BC ==
[2021-02-16] VITALS (10 sets, daily range): BP systolic 63–151; BP diastolic 57–151; O2SAT 96
[~2021-02-16] VITALS: Ht 182.9 cm; Wt 100.2 kg
[~2021-02-16 10:37] MED LIST changes: +CEFD1CAP8 PO; -CEFD300C41 PO; -LEXA1TAB PO
[2021-02-16 11:58] LABS: BASO # 0.4 10^3/uL (0.0-0.2); BASO % 0.5 % (0.0-1.0); EOS # 0.9 10^3/uL (0.0-0.5); EOS % 1.1 % (0.0-3.0); HEMATOCRIT 22.5 % (42.0-52.0); LYMPH # 9.2 10^3/uL (1.5-5.0); LYMPH % 10.8 % (24.0-44.0); MEAN CORPUSCULAR HEMOGLOBIN 33.3 pg (27.0-33.0); MEAN CORPUSCULAR HGB CONC 31.1 g/dl (32.0-36.5); MEAN CORPUSCULAR VOLUME 107.1 fl (80.0-96.0); MONO # 46.8 10^3/uL (0.0-0.8); NEUTROPHILS # 23.1 10^3/uL (1.5-8.5); NEUTROPHILS % 27.1 % (36.0-66.0); PLATELET COUNT, AUTOMATED 114 10^3/uL (150-450)
[2021-02-16 12:00] LABS: WHITE BLOOD COUNT 85.1 10^3/uL (4.0-10.0)
--- NOTE | 2021-02-16 12:00 | REP ---
INDICATION: fatigue COMPARISON: 01/30/2021 TECHNIQUE: Portable AP view of the chest FINDINGS: Evaluation is limited by underpenetration and portable technique which accentuate the pulmonary vasculature and interstitium. Cardiomegaly is again noted. Pulmonary vascular congestion/interstitial edema as well as small pleural effusions are suggested. Scattered atelectasis cannot be excluded. No pneumothorax. IMPRESSION: 1. Limited examination with findings to suggest pulmonary vascular congestion/early CHF including small pleural effusions and basilar atelectasis. <Electronically signed by Juan Watson > 02/16/21 [id number]
[2021-02-16 12:23] LABS: CALCIUM LEVEL 8.3 MG/DL (8.8-10.2); CREATININE FOR GFR 3.42 MG/DL (0.70-1.30); GLOMERULAR FILTRATION RATE 18.5 (>35); POTASSIUM SERUM 4.1 MEQ/L (3.5-5.1)
[2021-02-16 12:41] LABS: RSV AMPLIFICATION NEGATIVE (NEGATIVE)
[2021-02-16] MEDS ORDERED: HOME MED LIST COMPLETE! XX SCH (14:10)
[2021-02-16] MEDS ORDERED: GLUCAGON INJ 1MG VIAL SC PRN (14:55)
[2021-02-16] MEDS ORDERED: DEXTROSE 50% 50 ML SYRINGE IV PRN (14:55)
[2021-02-16] MEDS ORDERED: GLUCOSE 4GM CHEW TABLET PO PRN (14:55)
[2021-02-16 15:14] LABS: INR 1.37; PROTHROMBIN TIME 17.3 SECONDS (12.7-14.5)
[2021-02-16 15:15] LABS: PARTIAL THROMBOPLASTIN TIME 38.3 SECONDS (25.9-37.0)
[2021-02-16 15:18] LABS: MAGNESIUM LEVEL 1.9 MG/DL (1.8-2.4)
--- NOTE | 2021-02-16 15:29 | REP ---
INDICATION: acute RF upon CKD 4. COMPARISON: No prior renal ultrasound examinations. Prior noncontrast enhanced CT 01/30/2021 reviewed. TECHNIQUE: Real-time sonographic evaluation of the kidneys with Doppler FINDINGS: Multiple ultrasonographic images of the right kidney show the right kidney to measure 10 x 6.2 x 6 cm.. The renal cortical echotexture is unremarkable. There are no masses solid. There is a 1.4 cm sized round anechoic structure which exhibits posterior wall enhancement and increased through transmission. There is good corticomedullary differentiation. There is no hydronephrosis. There are no perinephric fluid collections. Multiple ultrasonographic images of the left kidney show the left kidney to measure 11.7 x 5.6 x 6 cm. The renal cortical echotexture is unremarkable. There are no solid masses. There are 2 anechoic structures in the inferior pole 1 measuring 2.4 cm and the other 1.8 cm. Both exhibit posterior wall enhancement and increased through transmission. In the upper pole there is a complex appearing 4 cm sized hypoechoic structure with some internal acoustic shadows. There is good corticomedullary differentiation. There is no hydronephrosis. There are no perinephric fluid collections. IMPRESSION: 1. There is a complex cystic structure in the upper pole of the left kidney as described above. Since the prior CT was a noncontrast enhanced CT this lesion has not been fully evaluated at this time. Pre and post gadolinium enhanced renal MRI is recommended for complete evaluation. 2. Other simple renal cysts as described above. <Electronically signed by Sánchez Rizo > 02/16/21 [id number]
--- NOTE | 2021-02-16 15:50 | HPEPDOC ---
[facility] Medical History & Physical Date of Admission Feb 16, 2021 Date of Service: Feb 16, 2021 Primary Care Physician: Stacey Tran Other Provider Dr. Víctor Sweeney M.D., hematology and oncology; Dr. 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 Patient was at nephrology for previously scheduled outpatient appointment, when he was told by his provider based on significantly abnormal blood work results, to present to the ED. Upon evaluation in the ED, patient reports dyspnea on exertion, nonproductive cough, decreased appetite, and diarrhea, but all of these have been present and remain unchanged since his most recent hospital discharge on 02/04/21. As a relates to his dyspnea on exertion, the patient was treated for community-acq uired pneumonia during that prior admission, and was discharged home on home oxygen. Patient is unsure specifically what level of supplemental O2 is on, but believes it is "5." He states that he feels worse over the past 12 days since prior discharge than he did before the recent admission. He reports there is some formed stool in his diarrhea, and that the color of the stool is "chocolate milk-like" diarrhea. On further review, he reports alternating between episodes of heat and cold intolerance with intermittent nausea without emesis, and the aforementioned significantly decreased appetite and nonproductive cough. PAST MEDICAL HISTORY: #. 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 -Patient is currently following with Dr. Víctor Sweeney of [facility] and has had one previous outpatient appointment. He is in the process of getting a port placed in preparation for starting chemotherapy #. HLD #. HTN #. Cataracts #. COPD on oxygen supplementation via MS $. T2DM #. GERD #. CKD3 #. Anxiety + Claustrophobia PAST SURGICAL HISTORY: #. Cholecystectomy #. Pericardial window, 12/2006 (Dr. Xavier Chaves at [facility]) SOCIAL HISTORY: Tobacco use: 44 year 3/4 PPD, quit 20 years ago; 02-[id number]-wkkd history ETOH: Denies Illicit drug use: Denies FAMILY HISTORY: Father: No known medical hx Mother: Hx DM ALLERGIES: Please see below. REVIEW OF SYSTEMS: CONSTITUTIONAL: Denies any fever, night sweats, or recent unintentional change in weight. HEENT: Denies blurred vision or double vision. Reports hard of hearing while using bilateral hearing aids. Denies any eye pain or ear pain. CARDIOVASCULAR: Denies chest pain, chest pressure, or palpitations RESPIRATORY: Reports dyspnea on exertion with mild intermittent transient episodes of dyspnea at rest unchanged over the past 12 days since prior hospital discharge. Reports dry cough unchanged from baseline. Denies pleuritic chest pain, hemoptysis. GASTROINTESTINAL: Reports diarrhea with some formed stool with chocolate milk- like appearance. Denies any significant abdominal pain, nausea, or vomiting. GENITOURINARY: Reports dysuria over the past month unchanged from recent baseline. Denies any hematuria. Denies any flank pain, lower back, or suprapubic tenderness. MUSCULOSKELETAL: Denies any discrete focal myalgias PSYCHIATRIC: Reports anxiety and claustrophobia. ENDOCRINE: Reports fluctuating between heat and cold intolerance HEMATOLOGIC: Denies any recent easy bleeding or bruising. LYMPHATIC: Denies any new lumps or bumps HOME MEDICATIONS: Please see below. PHYSICAL EXAMINATION: VITAL SIGNS: Please see below. GENERAL APPEARANCE: Pleasant elderly male lying upright in bed. Appears somewhat anxious at times during the exam. In no acute distress. HEENT: Normocephalic, atraumatic. Wearing eyeglasses. PERRLA. EOMI. Noninjected, anicteric sclera. Neck: Trachea midline. No lymphadenopathy appreciated. CARDIOVASCULAR: There is a roughly 12/6 systolic murmur appreciated best at the right second parasternal intercostal space. Regular rate, regular rhythm. Normal S1, S2. No significant rubs appreciated. LUNGS: Wearing 1 L nasal cannula submental oxygen and saturating at 96%. Decreased tidal volume with no significant adventitious breath sounds appreciated throughout. Symmetric chest expansion. No conversational dyspnea. ABDOMEN: Soft, nontender. There is a bit of a fullness periumbilically but no significant distention. Hypoactive bowel sounds throughout. No hepatosplenomegaly is appreciated. No rigidity. MUSCULOSKELETAL: Moving all 4 extremities with full range of motion. EXTREMITIES: There is 1+ pitting edema of the distal aspect left lower extremity. No significant edema or swelling of right lower extremity. 2+ radial pulses bilaterally. NEUROLOGICAL: No gross focal neurologic deficits appreciated. Nondysarthric speech. Responding appropriate all questions and commands. PSYCHIATRIC: Moderately anxious mood at times during the examination. Appropriate appearing affect. LABORATORY DATA: Please see below. IMAGING: Chest x-ray, 02/16/2021 FINDINGS: Evaluation is limited by underpenetration and portable technique which accentuate the pulmonary vasculature and interstitium. Cardiomegaly is again noted. Pulmonary vascular congestion/interstitial edema as well as small pleural effusions are suggested. Scattered atelectasis cannot be excluded. No pneumothorax. IMPRESSION: 1. Limited examination with findings to suggest pulmonary vascular congestion/early CHF including small pleural effusions and basilar atelectasis. MICROBIOLOGY: lease see below. ASSESSMENT & PLAN: #. Symptomatic anemialikely 2/2 newly diagnosed CMML and worsening chronic kidney disease stage IV - Patient has had dyspnea on exertion and fatigue for the past 2 weeks that has been intractable since discharge from prior admission on 02/04 - Baseline hbg a year ago was approximately 13, with him fluctuating between 8 and 9 this month -current Hgb of 7; type and screen ordered along with signed consent for blood products; order for 2 units of PRBCs to be transfused -Patient has been hemodynamically stable since presentation - stool occult blood and coagulation studies ordered (of note, patient reports stopping warfarin as an outpatient just 1 week ago) - will continue to monitor on repeat CBC w/diff -Patient appears to be on ferrous sulfate daily segmentation as outpatient; although no prior ferritin levels have been decreased (most recently was done earlier this month, 01/30/21) -Mechanical DVT prophylaxis rather than pharmacotherapy #. Acute renal failure superimposed on CKD 4, worsening -Patient was recommended to present to the ED today from his outpatient neph rology appointment due to abnormal labs - current creatinine of 3.42, up from baseline of roughly about 22.5 -Of note, patient's creatinine earlier this year in March and August was 1.9. Since that time, he has lost approximate 50% of function -This may be secondary to leukemic involvement versus obstruction -Renal ultrasound ordered; urine sodium and creatinine ordered - receiving fluids in the form of 2 units of blood; p.o. intake encouraged -Continue to follow repeat metabolic panels -C/W home K-Phos supplementation and calcitriol #. 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 Sweeney as previously scheduled as no current inpatient interventions are warranted -is in the process of getting a port placed to initiate chemotherapy #. T2DM, not insulin-dependent -Home Jardiance held upon admission. Per discussion with patient's nephrology office, this medication will likely be discontinued in the setting of his worsening CKD -Continue with his home sitagliptin dosing which was recently cut in half due to worsening CKD -This consistent carb and 2 g sodium diet ordered with fingersticks before meals and at bedtime; with patient's anticipated discharge tomorrow (02/17), initial sliding scale insulin coverage deferred -We will continue to follow fingerstick results #. HTN -c/w home nebivolol and doxazosin with holding parameters -Patient has been hemodynamically stable since presentation #. HLD -Home atorvastatin continued #Presumed history of gout Home fib Oxistat continued #DVT prophylaxis: Teds and sequentials in the setting of anemia requiring PRBC transfusion CODE STATUS: Full code Disposition: Patient will be admitted to the medical surgical floor with anticipated 1 midnight stay and likely discharge pending stability on 02/17/21. Vital Signs Vital Signs Date Time Temp Pulse Resp B/P (MAP) Pulse Ox O2 Delivery O2 Flow Rate FiO2 02/16/21 15:24 98.8 71 20 132/61 91 Nasal Cannula 2.0 Laboratory Data Labs 24H Laboratory Tests 2 02/16/21 11:41: Immature Granulocyte % (Auto) 5.5H, Neutrophils (%) (Auto) 27.1L, Lymphocytes (%) (Auto) 10.8L, Monocytes (%) (Auto) 55.0H, Eosinophils (%) (Auto) 1.1, Basophils (%) (Auto) 0.5, Neutrophils # (Auto) 23.1H, Lymphocytes # (Auto) 9.2H, Monocytes # (Auto) 46.8H, Eosinophils # (Auto) 0.9H, Basophils # (Auto) 0.4H, Nucleated Red Blood Cells % (auto) 0.3H, Prothrombin Time 17.3H, Prothromb Time International Ratio 1.37, Activated Partial Thromboplast Time 38.3, Anion Gap 8, Glomerular Filtration Rate 18.5L, Calcium Level 8.3L, Magnesium Level 1.9, Coronavirus (COVID-19)(PCR) NEGATIVE, Influenza Type A (RT-PCR) NEGATIVE, Influenza Type B (RT-PCR) NEGATIVE, Respiratory Syncytial Virus (PCR) NEGATIVE CBC/BMP Laboratory Tests 02/16/21 11:41 Home Medications Scheduled Atorvastatin Calcium (Atorvastatin Calcium) 80 Mg Tab, 40 MG PO QHS Calcitriol (Calcitriol) 0.25 Mcg Cap, 0.25 MG PO 5XW MON, TUES, WED, TH, FRI Doxazosin Mesylate (Doxazosin Mesylate) 2 Mg Tablet, 2 MG PO DAILY Empagliflozin (Jardiance) 10 Mg Tablet, 10 MG PO DAILY Febuxostat (Febuxostat) 40 Mg Tablet, 40 MG PO DAILY Ferrous Sulfate (Ferrous Sulfate) 324 Mg Tablet.dr, 324 MG PO DAILY Nebivolol HCl (Bystolic) 5 Mg Tablet, 5 MG PO DAILY [place]-3S/Dha/Epa/Fish Oil (Fish Oil EC 1,200 mg Softgel) 1 Cap Cap, 1 CAP PO DAILY Repaglinide (Repaglinide) 1 Mg Tablet, 1 MG PO TID Sitagliptin Phosphate (Januvia) 100 Mg Tab, 50 MG PO DAILY Sod Phos Di, [place]/K Phos [place] (Virt-Phos 250 Neutral Tablet) 1 Tab Tab, 1 TAB PO DAILY Vitamin B Complex (Vitamin B Complex) 1 Each Tablet, 1 TAB PO DAILY Allergies Coded Allergies: Quinolones (Verified Allergy, Unknown, NAUSEA, 10/20/18) Sulfa (Sulfonamide Antibiotics) (Verified Allergy, Unknown, NAUSEA, 10/20/18) allopurinol (Verified Allergy, Unknown, NAUSEA, 10/20/18) codeine (Verified Allergy, Unknown, CONFUSION, 10/20/18) GME ATTESTATION GME ATTESTATION My faculty preceptor for this patient encounter was physically present during the encounter and was fully available. All aspects of the patient interview, examination, medical decision making process, and medical care plan development were reviewed and approved by the faculty preceptor. The faculty preceptor is aware and concurs with the plan as stated in the body of this note and will attest to such by his/her cosignature. ATTENDING NOTE I, Andrae Palacio DO, have independently examined this patient and performed my own physical exam, as well as reviewed the documentation and edited where necessary. I have discussed in detail with the resident the findings and plan of treatment as documented by the resident and edited their note. I agree with their findings and treatment plan and have edited their documentation. I will continue to follow the patient during this hospital stay. JAKOB SOLARES D.O. Feb 16, 2021 15:50 ANDRAE PALACIO DO Feb 16, 2021 17:42
--- NOTE | 2021-02-16 16:16 | ECGEPIP ---
[facility] - ED Test Date: 2021-02-16 Pat Name: ADRIANNE ALVARADO Department: Room: - Gender: Male [employer]: LR : 1940 Requested By: Petey Wilson Order Number: [id number] Reading MD: Clyde Medina Measurements Intervals [place] Rate: 69 P: 22 SD: 170 QRS: 28 QRSD: 86 T: 35 QT: 402 QTc: 430 Interpretive Statements Normal sinus rhythm Nonspecific T wave abnormality Baseline artifact Likely similar to tracing done 01-30-21 Electronically Signed on 02-16-2021 16:15:58 EST by Clyde Medina
[2021-02-16] MEDS ORDERED: HumaLOG INSULIN (NovoLOG) PER UNIT SC SCH ×2 (17:30→21:00)
[2021-02-16] MEDS ORDERED: ATORVASTATIN 20 MG TAB PO SCH (21:00)
[2021-02-17 06:00] VITALS: BP 160/69
[2021-02-17 06:22] LABS: HEMATOCRIT 27.7 % (42.0-52.0); HEMOGLOBIN 8.5 g/dl (13.5-17.5); MEAN CORPUSCULAR HEMOGLOBIN 31.1 pg (27.0-33.0); MEAN CORPUSCULAR HGB CONC 30.7 g/dl (32.0-36.5); MEAN CORPUSCULAR VOLUME 101.5 fl (80.0-96.0); PLATELET COUNT, AUTOMATED 108 10^3/uL (150-450); RED BLOOD COUNT 2.73 10^6/uL (4.30-6.10)
[2021-02-17 06:25] LABS: WHITE BLOOD COUNT 76.2 10^3/uL (4.0-10.0)
[2021-02-17 06:36] LABS: CREATININE FOR GFR 3.2 MG/DL (0.70-1.30); MAGNESIUM LEVEL 1.9 MG/DL (1.8-2.4); POTASSIUM SERUM 4.5 MEQ/L (3.5-5.1)
[2021-02-17 07:01] LABS: BASOPHILS 2 % (0-1); EOSINOPHILS 1 % (0-3); LYMPHOCYTES 12 % (16-44); METAMYELOCYTES 3 % (0-0); MONOCYTES 43 % (0-5); MYELOCYTES 1 % (0-0); NEUTROPHILS 36 % (28-66)
[2021-02-17 07:02] LABS: ANISOCYTOSIS 1+; PLATELET ESTIMATE DECREASED (NORMAL); POIKILOCYTOSIS 1+
[2021-02-17] MEDS ORDERED: SITagliptin 50 MG TAB (JANUVIA) PO SCH (09:00)
[2021-02-17] MEDS ORDERED: DOXAZOSIN MESYLATE 1 MG TAB PO SCH (09:00)
[2021-02-17] MEDS ORDERED: CALCITRIOL 0.25 MCG CAP (S0169) PO SCH (09:00)
[2021-02-17] MEDS ORDERED: K-PHOS NEUTRAL 250MG TABLET (SOD.PHOSPHATE/POT.PHOSPHATE) PO SCH (09:00)
[2021-02-17] MEDS ORDERED: FEBUXOSTAT 40 MG TABLET (ULORIC) PO SCH (09:00)
[2021-02-17] MEDS ORDERED: NEBIVOLOL 5 MG TAB (BYSTOLIC) PO SCH (09:00)
[2021-02-17 09:09] VITALS: BP 124/49
[2021-02-17] MEDS ORDERED: hydrOXYzine 25 MG TAB PO PRN (09:30)
[2021-02-17] MEDS ORDERED: ESCITALOPRAM OXALATE 10 MG TAB (LEXAPRO) PO ONE (09:30)
[2021-02-17] MEDS ORDERED: LEXA1TAB PO (10:21)
--- NOTE | 2021-02-17 13:50 | DS.PDOC ---
Discharge Summary General Date of Admission Feb 16, 2021 at 13:32 Date of Discharge 02/17/21 Attending Physician: ANDRAE PALACIO DO Discharge Summary PROCEDURES PERFORMED DURING STAY: 2 units of blood transfused. ADMITTING DIAGNOSES: #. Acute symptomatic anemia #. 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 Cataracts #. HLD #. HTN #. CKD3 #. T2DM #. COPD #. Anxiety + claustrophobia #. GERD DISCHARGE DIAGNOSES: #. Acute symptomatic anemia likely 2/2 CMML #. 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 Cataracts #. HLD #. HTN #. CKD3 #. T2DM #. COPD #. Anxiety + claustrophobia #. GERD COMPLICATIONS/CHIEF COMPLAINT: Cmml, Symptomatic Anemia. HISTORY OF PRESENT ILLNESS: Jorge Luis Rothman is an amicable 80 year old male with a PMHx of newly diagnosed CMML and CKD3 who presented to the ED at [facility] on 02/16/21 after he drove himself from outpatient nephrology upon their suggestion. While at his outpatient nephro appointment his blood work returned with abnormal values that his provider recommended he seek the ER for. Upon examination in the ED patient reported dyspnea, dry cough, diarrhea, and diminished appetite which he states he's had ever since being discharged on 02/04. This prior admission saw the patient being treated for CAP for which he was discharged on home O2. He remarks on feeling worse these past days since his discharge and that he's having a new onset of hot/cold flashes. On exam today, 02/17, patient stated he still feels quite lousy. His complaints consistent with how hes felt since his pneumonia episode 2 weeks prior. He did, however, say that after his blood transfusions he felt incredibly improved, that even his respiratory symptoms had abated. He does note a feeling of nausea, but when he describes this sensation it sounds more like heartburn. Patient is still very anxious and claustrophobic at this time but is happy to be going home. HOSPITAL COURSE: Patient drove himself to the ED on 02/16 after his provider at his outpatient nephrology appointment suggested he head there based on abnormal lab values. Upon presentation to the ED patient was found to be symptomatically anemic. Upon discussion with Dr. Patel it was decided that this patients presenting complaint was likely due to his recently diagnosed CMML and that all of that care and management would need to be done outpatient with Dr. Sweeney. To treat the symptomatic anemia the patient was transfused 2L of blood which resulted in a noticeable improvement in lab values on CBC. To treat this severe anxiety and claustrophobia patient was started on escitalopram, and patient was counseled on the fact this medication may take up to 6 weeks to have a noticeable effect. Imaging was ordered through a renal ultrasound and CXR which both revealed no gross pathology suggestive of this anemia. During his stay patient was treated based on his diabetic status and was also informed to cease the use of Jardiance as this may worsen kidney function. He was informed of the importance of following up with his oncologist once he is home. Lexapro was attempted to be started however, after the patient had left the hospital, the patient's called stating that the patient was very anxious and that they thought it was because the Lexapro. I advised the patient to follow-up with his primary care provider for more information. DISCHARGE MEDICATIONS: Please see below. ALLERGIES: Please see below. PHYSICAL EXAMINATION ON DISCHARGE: VITAL SIGNS: Please see below. GENERAL: Patient is a well appearing 80 year old male who looks his stated age and is in no acute distress. HEENT: NC/AT, EOMI, moist mucous membranes. CARDIOVASCULAR EXAMINATION: RRR, no murmurs or gallops appreciated. RESPIRATORY EXAMINATION: CTAB, no rales, rhonchi, or wheezing. On 1LNC comfortably. ABDOMINAL EXAMINATION: NT/ND, soft, no guarding. Normoactive bowel sounds. EXTREMITIES: 1+ pitting edema in left leg. Right leg unremarkable. NEUROLOGICAL EXAMINATION: No gross focal deficits, CN 2-12 intact. PSYCHIATRIC EXAMINATION: Mood is anxious, affect appropriate. LABORATORY DATA: Please see below. IMAGING: #. 02/16 CXR: "IMPRESSION: 1. Limited examination with findings to suggest pulmonary vascular congestion/early CHF including small pleural effusions and basilar atelectasis." #. Renal ultrasound: "IMPRESSION: 1. There is a complex cystic structure in the upper pole of the left kidney as described above. Since the prior CT was a noncontrast enhanced CT this lesion has not been fully evaluated at this time. Pre and post gadolinium enhanced renal MRI is recommended for complete evaluation. 2. Other simple renal cysts as described above." PROGNOSIS: Fair ACTIVITY: As tolerated. DIET: As tolerated. DISCHARGE PLAN: Home/ DISPOSITION: 01 Home, Self-Care. DISCHARGE INSTRUCTIONS: - Please follow up with Dr. Víctor Sweeney of medical oncology/hematology as previously scheduled to continue care for leukemia. - please follow up with nephrology within the next 1-2 weeks - Please follow up with primary care physician in the next 5 days - Please take new prescription of escitalopram (Lexapro) 10 mg tablet daily; prescription will be sent to your pharmacy - Please comply with the above treatment plan - Should the reasons why you presented to the hospital recur and/or acutely worsen, or you should experience acute medical emergency, please return to the emergency department - Thank you for the opportunity to participate in your care ITEMS TO FOLLOWUP ON ON OUTPATIENT: #. COPD #. CMML #. Diabetic medications #. CKD3 DISCHARGE CONDITION: Stable. TIME SPENT ON DISCHARGE: 36 minutes. Vital Signs/I&Os Vital Signs Date Time Temp Pulse Resp B/P (MAP) Pulse Ox O2 Delivery O2 Flow Rate FiO2 02/17/21 09:09 61 124/49 02/17/21 09:00 2.0 02/17/21 06:00 97.3 23 93 Nasal Cannula I&O- Last 24 Hours up to 6 AM 02/17/21 06:00 Intake Total 1640 ml Output Total 300 ml Balance 1340 ml Laboratory Data Labs 24H Laboratory Tests 2 02/16/21 20:14: Bedside Glucose (Misc Panel) 198H 02/17/21 05:41: Immature Granulocyte % (Auto) , Neutrophils (%) (Auto) , Lymphocytes (%) (Auto) , Monocytes (%) (Auto) , Eosinophils (%) (Auto) , Basophils (%) (Auto) , Neutrophils # (Auto) , Lymphocytes # (Auto) , Monocytes # (Auto) , Eosinophils # (Auto) , Basophils # (Auto) , Nucleated Red Blood Cells % (auto) 0.4H, Neutrophils 36, Band Neutrophils 2, Lymphocytes (Manual) 12L, Monocytes (Manual) 43H, Eosinophils (Manual) 1, Basophils (Manual) 2H, Metamyelocytes 3H, Myelocytes 1H, Poikilocytosis 1+, Anisocytosis 1+, Macrocytosis 1+, Platelet Estimate DECREASED, Anion Gap 7L, Glomerular Filtration Rate 20.0L, Calcium Level 8.0L, Magnesium Level 1.9 02/17/21 11:55: Bedside Glucose (Misc Panel) 142H CBC/BMP Laboratory Tests 02/17/21 05:41 FSBS Laboratory Tests Test 02/16/21 20:14 02/17/21 11:55 Range/Units Bedside Glucose (Misc Panel) 198 142 83-110 MG/DL Discharge Medications Scheduled Atorvastatin Calcium (Atorvastatin Calcium) 80 Mg Tab, 40 MG PO QHS, (Reported) Calcitriol (Calcitriol) 0.25 Mcg Cap, 0.25 MG PO 5XW, (Reported) MON, TUES, WED, , FRI Doxazosin Mesylate (Doxazosin Mesylate) 2 Mg Tablet, 2 MG PO DAILY, (Reported) Escitalopram Oxalate (Lexapro) 10 Mg Tablet, 10 MG PO DAILY Febuxostat (Febuxostat) 40 Mg Tablet, 40 MG PO DAILY, (Reported) Ferrous Sulfate (Ferrous Sulfate) 324 Mg Tablet.dr, 324 MG PO DAILY, (Reported) Nebivolol HCl (Bystolic) 5 Mg Tablet, 5 MG PO DAILY, (Reported) [place]-3S/Dha/Epa/Fish Oil (Fish Oil EC 1,200 mg Softgel) 1 Cap Cap, 1 CAP PO DAILY, (Reported) Repaglinide (Repaglinide) 1 Mg Tablet, 1 MG PO TID, (Reported) Sitagliptin Phosphate (Januvia) 100 Mg Tab, 50 MG PO DAILY, (Reported) Sod Phos Di, Prentiss/K Phos Prentiss (Virt-Phos 250 Neutral Tablet) 1 Tab Tab, 1 TAB PO DAILY, (Reported) Vitamin B Complex (Vitamin B Complex) 1 Each Tablet, 1 TAB PO DAILY, (Reported) Allergies Coded Allergies: Quinolones (Verified Allergy, Unknown, NAUSEA, 10/20/18) Sulfa (Sulfonamide Antibiotics) (Verified Allergy, Unknown, NAUSEA, 10/20/18) allopurinol (Verified Allergy, Unknown, NAUSEA, 10/20/18) codeine (Verified Allergy, Unknown, CONFUSION, 10/20/18) GME ATTESTATION GME ATTESTATION My faculty preceptor for this patient encounter was physically present during the encounter and was fully available. All aspects of the patient interview, e xamination, medical decision making process, and medical care plan development were reviewed and approved by the faculty preceptor. The faculty preceptor is aware and concurs with the plan as stated in the body of this note and will attest to such by his/her cosignature. ATTENDING NOTE I, Andrae Palacio DO, have independently examined this patient and performed my own physical exam, as well as reviewed the documentation and edited where necessary. I have discussed in detail with the resident / student the findings and plan of treatment as documented by the resident / student and edited their note. I agree with their findings and treatment plan and have edited their do cumentation. I will continue to follow the patient during this hospital stay. ANAY ROSAS OMS-3 Feb 17, 2021 13:50 ANDRAE PALACIO DO Feb 17, 2021 17:19
[2021-02-18] MEDS ORDERED: ESCITALOPRAM OXALATE 10 MG TAB (LEXAPRO) PO SCH (09:00)
== END 2021-02-17 13:14 | disposition home or self-care (01) ==
LOC: M ED 10:37 → M ED INP 13:32 → ENRESERV 15:27 → M MSPAV 17:05
PROVIDERS: ADMIT Family Medicine; ATTEND Family Medicine
DX: D64.9 Anemia, unspecified (principal); C93.10 Chronic myelomonocytic leukemia not having achieved remission; H25.9 Unspecified age-related cataract; E78.5 Hyperlipidemia, unspecified; I12.9 Hypertensive chronic kidney disease with stage 1 through stage 4 chronic kidney disease, or unspecified chronic kidney disease; N18.30 Chronic kidney disease, stage 3 unspecified; J44.9 Chronic obstructive pulmonary disease, unspecified; F41.9 Anxiety disorder, unspecified; F40.240 Claustrophobia; K21.9 Gastro-esophageal reflux disease without esophagitis; N17.9 Acute kidney failure, unspecified; M10.9 Gout, unspecified; Z79.899 Other long term (current) drug therapy; Z79.84 Long term (current) use of oral hypoglycemic drugs; Z88.1 Allergy status to other antibiotic agents; Z88.2 Allergy status to sulfonamides; Z88.8 Allergy status to other drugs, medicaments and biological substances; Z88.5 Allergy status to narcotic agent
CPT/HCPCS: 36415; 36430; 71045; 76775; 80048; 83735; 85025; 85610; 85730; 86850; 86900; 86901; 86920; 87631; 93005; 99285; G0378; P9016

== ENCOUNTER 2021-03-12 02:10 | Emergency (ER) | payer MEDICARE, BC ==
[~2021-03-12] VITALS: Ht 185.4 cm; Wt 100.0 kg
[~2021-03-12 02:10] MED LIST changes: -CEFD1CAP8 PO; +CEFD300C41 PO; +LEXA1TAB PO
[2021-03-12] MEDS ORDERED: NOREPINEPHRINE 4 MG/4 ML AMP As Ordered ONE (02:24)
[2021-03-12 02:34] VITALS: BP 62/39
[2021-03-12] MEDS ORDERED: EPINEPHrine 1MG/10ML SYRINGE 1.5IN IV STA (03:14)
[2021-03-12] MEDS ORDERED: SODIUM BICARBONATE 8.4% INJ 50 ML SYRINGE IV STA (03:14)
[2021-03-12] MEDS ORDERED: NOREPINEPHRINE BITARTRATE 8 MG in D5W 492 ML IV SCH (03:15)
[2021-03-12 05:14] LABS: RSV AMPLIFICATION NEGATIVE (NEGATIVE)
== END 2021-03-12 04:35 | disposition expired ==
LOC: M ED 02:10
DX: I46.9 Cardiac arrest, cause unspecified (principal); Z88.1 Allergy status to other antibiotic agents; Z88.2 Allergy status to sulfonamides; Z88.5 Allergy status to narcotic agent; Z88.8 Allergy status to other drugs, medicaments and biological substances; Z79.899 Other long term (current) drug therapy; Z79.84 Long term (current) use of oral hypoglycemic drugs